=== PATIENT | female | born 1970 | race Caucasian/White ===

== ENCOUNTER 2024-08-10 07:52 | Inpatient (IN) ==
[2024-08-10 08:32] LABS: iSTAT Creatinine 0.8 mg/dl (0.6-1.3); iSTAT Hemoglobin 12.6 g/dl (12.0-16.0); iSTAT Ionized Calcium 1.1 mmol/l (1.12-1.32); iSTAT Potassium 4.2 mmol/L (3.3-5.0)
--- NOTE | 2024-08-10 08:32 | Emergency Department Note ---
Impression & Plan Pneumonia, History of CVA (cerebrovascular accident), Chronic HFrEF (heart failure with reduced ejection fraction), Sepsis, Acute UTI ED Provider Note Provider: Fredis Castrejon MD CHIEF COMPLAINT: High blood sugar, change in mental status HISTORY OF PRESENT ILLNESS: Patient is a 54-year-old female unfortunate complex history including cerebral palsy, bipolar disorder/schizophrenia, history of stroke and seizure, dilated cardiomyopathy and uncontrolled diabetes presenting here via ambulance from [facility] where she resides. According to EMS report the staff stated that this morning checking on her she was more obtunded than normal and would not interact with them. They noted her blood sugars to be high. The reported this occurred sometime overnight. Patient herself is nonverbal and invite significant history to me. She did receive a small 200 cc IV fluid bolus for EMS of normal saline prior to arrival. They report that she has had a bit of a cough and they placed her on some slight supplemental oxygen as she did drop to 88% at 1 point for them. No trauma is reported. PAST MEDICAL HISTORY: As noted above MEDICATIONS: Reviewed medication list from facility SOCIAL HISTORY: Resides at long-term residential facility PHYSICAL EXAM: GENERAL: Occasionally opening her eyes but not interactive or following commands. In no apparent distress. Head: normocephalic and atraumatic EYES: No injection, discharge or icterus. PERRL NECK: Trachea midline. ENT: Mucous membranes pink and moist. LUNGS: Airway patent. No retractions. Breath coarse with significant rhonchi right greater than left base. HEART: Regular rate and rhythm. No chest wall tenderness ABDOMEN: Soft and non-tender, without guarding or rebound. PEG tube in place and mid upper abdomen. SKIN: Acyanotic, warm, dry, without rashes EXTREMITIES: Without swelling, tenderness or deformity of the lower extremities which appear somewhat then and atrophied. NEUROLOGICAL: Withdraws to pain in all 4 extremities. Nonverbal. EK bpm sinus tachycardia with right bundle branch block left anterior fascicular block. No clear acute ST segment elevation with some T wave inversions and LVH findings QTc 488. CONTINUOUS CARDIAC MONITORING: was ordered and showed a heart rate of 100s-120s bpm in sinus tachycardia Patient's laboratory studies and imaging reviewed. Differential includes Infection, dehydration, metabolic abnormality, hypo/hyperglycemia, electrolyte disturbance, anemia, hypoxia, cardiac sources, intracerebral event, toxicologic, neurologic, as well as other pathologies. IMPRESSION/MEDICAL DECISION MAKING: Upon transitioning here initially not hypoxic. Junky cough and poor lung sounds. History of significant cardiomyopathy and fluid overload in the past and gently given a total of approximate 500 cc normal saline between IV fluids here in the prehospital administration. Chest x-ray concerning for right basilar pneumonia. Glucose significantly elevated. Does not appear to be in DKA however. CT head obtained to exclude acute intracranial abnormality or new findings of bleed or stroke. Borderline temperature and white blood cell count concerning for sepsis with her tachycardia. Again being careful to not fluid overload her given her history of heart failure. Covered broadly with cefepime based on prior culture results from the [facility] system access by case management showing Klebsiella in the urine in the past with some Zosyn resistance. Patient seems to be breathing okay not requiring noninvasive positive pressure ventilation or intubation for airway protection at this point. Again question of possible aspiration given her poor swallow status and the x-ray findings. Hurt placed with what appears to be a florid UTI. Negative respiratory viral panel. Procalcitonin not severely elevated but evidence of a mildly elevated troponin of 40 and slightly elevated bilirubin 3.5, AST 41, ALT of 62, and alkaline phosphatase of 888. Not having abdominal pain at least obviously. Leukocytosis 12.8 without anemia is noted. Again covered broadly with cefepime at this time. Insulin drip started given her severe hyperglycemia but does not appear to have a gap and doubt this is DKA. Believe likely sepsis. CT of the head per report shows no acute bleed or mass effect with evidence of an old stroke and age and encouragement right velasquez radiata hypodensity. CT of the abdomen pelvis ordered for further evaluation of the LFT abnormality. Although from review of records appears she has some chronic elevations in the past. Discussed with the hospitalist team as she requires hospitalization for her sepsis. Did eventually get a hold of staff at [facility] at [facility] where she resides and she evidently had a fever last night and was given Tylenol but no medications this morning. As she is febrile here given Tylenol for fever. DIAGNOSIS: Sepsis, UTI, pneumonia, hyperglycemia, altered mental status DISPOSITION: Hospitalist will evaluate Critical Care I have personally spent 33 minutes of critical care time in the direct management of this patient. This includes bedside care, interpretation of diagnostic studies, and testing, discussion with consultants, patient, and other required patient management activities. These 33 minutes is in excess of all separately billable procedures. Past Med/Surg History Problem List (Updated 08/10/24 @ 13:17 by Fredis Castrejon M.D.) Acute UTI (Acute) Chronic HFrEF (heart failure with reduced ejection fraction) (Acute) Acute respiratory failure with hypoxia Hyperosmolar hyperglycemic state (HHS) Pneumonia (Acute) Sepsis (Acute) Seizure disorder Cerebral palsy Bipolar disorder with psychotic features Cardiomyopathy Diabetes mellitus History of CVA (cerebrovascular accident) (Acute) Medical History Neuropathy G6PD deficiency GERD (gastroesophageal reflux disease) Chronic respiratory failure Intellectual developmental disorder, moderate Coulter's syndrome Elevated LFTs Coronary artery calcification Surgical History Status post insertion of percutaneous endoscopic gastrostomy (PEG) tube Family History Other Family history non-contributory Social History Smoking Status: Unknown if ever smoked Feels Safe at Home: Yes Allergies Allergies Allergy/AdvReac Type Severity Reaction Status Date / Time metformin Allergy Unknown Unknown - Unverified 08/10/24 10:47 On med list w/ [facility] Home Meds Home Medications Medication Instructions Recorded Confirmed B-complex with vitamin C 1 tab feeding tube DAILY 08/10/24 08/10/24 Lactobacillus acidophilus 10 mg feeding tube DAILY 08/10/24 08/10/24 acetaminophen 325 mg tablet 650 mg feeding tube Q6H PRN 08/10/24 08/10/24 Elevated Temp>101 acetaminophen 325 mg tablet 650 mg feeding tube Q6H PRN Mild 08/10/24 08/10/24 Pain (Scale Score 1-3) atorvastatin 10 mg tablet 10 mg feeding tube QAM 08/10/24 08/10/24 baclofen 20 mg tablet 20 mg feeding tube Q12H PRN Muscle 08/10/24 08/10/24 Spasms bisacodyl 10 mg rectal suppository 10 mg TX DAILY PRN Consitpation 08/10/24 08/10/24 budesonide 0.5 mg/2 mL suspension 0.5 mg inhalation QAM 08/10/24 08/10/24 for nebulization calcium 500 mg (as 1 tab feeding tube DAILY 08/10/24 08/10/24 carbonate)-vitamin D3 5 mcg (200 unit) tablet (Calcium 500 + D) clonazepam 0.5 mg tablet 0.5 mg feeding tube Q12H PRN 08/10/24 08/10/24 Anxiety diphenhydramine HCl 25 mg tablet 25 mg feeding tube Q6H PRN Itching 08/10/24 08/10/24 duloxetine 20 mg capsule,delayed 20 mg PO DAILY 08/10/24 08/10/24 release enoxaparin 40 mg/0.4 mL 40 mg subcut QAM 08/10/24 08/10/24 subcutaneous syringe folic acid 400 mcg tablet 400 mcg feeding tube QAM 08/10/24 08/10/24 furosemide 40 mg tablet 40 mg feeding tube BID 08/10/24 08/10/24 glucagon HCl 1 mg solution for 1 mg IM DIRECTED PRN 08/10/24 08/10/24 injection (Glucagon (HCl) Hypoglycemia Emergency Kit) glycopyrrolate 1 mg tablet 1 mg feeding tube TID 08/10/24 08/10/24 insulin glargine 100 unit/mL (3 45 unit subcut DAILY 08/10/24 08/10/24 mL) subcutaneous pen (Lantus Solostar U-100 Insulin) insulin lispro 100 unit/mL 0 - 12 sliding scale dose subcut 08/10/24 08/10/24 subcutaneous pen (Humalog KwHermilo ACHS (U-100) Insulin) lamotrigine 100 mg tablet 100 mg feeding tube QPM 08/10/24 08/10/24 lamotrigine 25 mg tablet 50 mg feeding tube QAM 08/10/24 08/10/24 lansoprazole 15 mg delayed 30 mg feeding tube QAM 08/10/24 08/10/24 release,disintegrating tablet loratadine 10 mg tablet 10 mg feeding tube DAILY 08/10/24 08/10/24 magnesium hydroxide 400 mg/5 mL 2,400 mg feeding tube DAILY PRN 08/10/24 08/10/24 oral suspension (Milk of Magnesia) Constipation metoprolol tartrate 25 mg tablet 25 mg feeding tube QID 08/10/24 08/10/24 nystatin 100,000 unit/mL oral 500,000 unit PO Q4H PRN 08/10/24 08/10/24 suspension Thrush/Disturbances of Salivary Secretion ondansetron HCl 4 mg/5 mL oral 4 mg feeding tube Q8H PRN Nausea 08/10/24 08/10/24 solution oxycodone 5 mg tablet 2.5 mg feeding tube Q6H PRN Pain 08/10/24 08/10/24 (Scale Score 4-10) polyethylene glycol 3350 17 gram 17 g feeding tube DAILY PRN 08/10/24 08/10/24 oral powder packet Constipation risperidone 1 mg/mL oral solution 3 mg feeding tube HS 08/10/24 08/10/24 sodium phosphates 19 gram-7 118 ml TX DAILY PRN Constipation 08/10/24 08/10/24 gram/118 mL enema (Fleet Enema) Results & Data (ED) Vital Signs Vital Signs - 24 hr 08/10/24 08:01 08/10/24 08:37 08/10/24 08:47 Temperature 37.7 C H Temperature Source Oral Pulse Rate 123 H 125 H Pulse Rate [Left Radial] 123 H Respiratory Rate 22 16 Respiratory Effort / Characteristics Spontaneous Spontaneous Respiratory Depth Blood Pressure 129/90 Blood Pressure [Left Arm] Blood Pressure Mean 103 Blood Pressure Mean [Left Arm] Blood Pressure Position Semi-fowlers Blood Pressure Position [Left Arm] Pulse Oximetry 93 95 Oxygen Delivery Method Room Air Room Air Oxygen Flow Rate Sepsis Recent Fever Within 48 Hours No Sepsis New/Unexplained Change in Mental Status N/A Sepsis Action Taken by Nursing Physician Notified Oxygen Flow Rate - Titration Pulse Oximetry Post Tiitration 08/10/24 09:00 08/10/24 09:00 08/10/24 09:04 Temperature 38.4 C H Temperature Source Rectal Pulse Rate Pulse Rate [Left Radial] 117 H Respiratory Rate 20 Respiratory Effort / Characteristics Non-Labored Spontaneous Respiratory Depth Normal Blood Pressure Blood Pressure [Left Arm] 141/88 H Blood Pressure Mean Blood Pressure Mean [Left Arm] 105 Blood Pressure Position Blood Pressure Position [Left Arm] Semi-fowlers Pulse Oximetry 96 88 L 88 L Oxygen Delivery Method Nasal Cannula Room Air Room Air Oxygen Flow Rate 2 Sepsis Recent Fever Within 48 Hours Sepsis New/Unexplained Change in Mental Status Sepsis Action Taken by Nursing Oxygen Flow Rate - Titration 2 Pulse Oximetry Post Tiitration 95 08/10/24 09:06 Temperature Temperature Source Pulse Rate 117 H Pulse Rate [Left Radial] Respiratory Rate 20 Respiratory Effort / Characteristics Respiratory Depth Blood Pressure Blood Pressure [Left Arm] Blood Pressure Mean Blood Pressure Mean [Left Arm] Blood Pressure Position Blood Pressure Position [Left Arm] Pulse Oximetry 95 Oxygen Delivery Method Nasal Cannula Oxygen Flow Rate 2 Sepsis Recent Fever Within 48 Hours Sepsis New/Unexplained Change in Mental Status Sepsis Action Taken by Nursing Oxygen Flow Rate - Titration Pulse Oximetry Post Tiitration Laboratory Data 08/10/24 08:20 08/10/24 08:20 Lab Results 08/10/24 08/10/24 08/10/24 Range/Units 07:56 08:20 10:42 WBC 12.87 H (4.8-10.8) K/ul RBC 3.86 L (4.20-5.40) M/uL Hgb 12.1 (12.0-16.0) g/dl POC Hgb 12.6 (12.0-16.0) g/dl Hct 37.3 (37.0-47.0) % POC Hct 37 (37-47) % MCV 96.6 (80.0-100.0) fL MCH 31.3 (25.0-34.0) pg MCHC 32.4 (32.0-36.0) g/dL RDW Std Deviation 53.3 H (36.4-46.3) fL RDW Coeff of Ricci 14.9 H (11.5-14.5) % Plt Count 216 (130-400) K/uL MPV 10.7 (9.4-12.4) fL Immature Gran % (Auto) 0.4 % Neut % (Auto) 87.2 % Lymph % (Auto) 5.6 % [place] % (Auto) 6.4 % Eos % (Auto) 0.1 % Baso % (Auto) 0.3 % Neut # (Auto) 11.22 H (1.40-6.50) K/uL Lymph # (Auto) 0.72 L (1.20-3.40) K/uL [place] # (Auto) 0.83 H (0.11-0.59) K/uL Eos # (Auto) 0.01 (0.00-0.50) K/uL Baso # (Auto) 0.04 (0.00-0.20) K/uL Immature Gran # (Auto) 0.05 (0.01-0.20) K/uL PT 10.4 (9.0-12.0) Seconds INR 1.0 (0.9-1.1) POC Sodium 129 L (135-144) mmol/L Sodium 131 L (136-145) mmol/L POC Potassium 4.2 (3.3-5.0) mmol/L Potassium 4.3 (3.5-5.1) mmol/L POC Chloride 88 L (101-112) mmol/L Chloride 88 L (98-107) mmol/L Carbon Dioxide 36 H (21-32) mmol/L POC Total CO2 35 H (24-31) mmol/L Anion Gap 7 (3-11) POC Anion Gap 12.0 L (16-25) mmol/L POC BUN 38 H (7-18) mg/dl BUN 39 H (6-23) mg/dl Creatinine 0.78 (0.6-1.2) mg/dl POC Creatinine 0.8 (0.6-1.3) mg/dl Est Cr Clr Drug Dosing Not Reportable eGFR 89.64 BUN/Creatinine Ratio 50.0 H (10-20) Glucose 608 H* (70-99(Fasting)) mg/dl POC Glucose 565 H* (70-99) mg/dl POC Glucose (other) 605 H* (70-99) mg/dl Estimat Average Glucose 160 mg/dl Hemoglobin A1c 7.2 H (4.5-5.6) % Lactate 1.3 (0.4-2.0) mmol/L Calcium 8.9 (8.6-10.3) mg/dl POC Ioniz Calcium Brendon 1.10 L (1.12-1.32) mmol/l Magnesium 1.9 (1.7-2.4) mg/dl Total Bilirubin 3.5 H (0.2-1.0) mg/dl AST 41 H (13-39) U/L ALT 62 H (7-52) U/L Alkaline Phosphatase 888 H (34-104) U/L Troponin I High Sens 40.7 H 36.7 H (0-14) pg/ml Total Protein 6.4 (6.0-8.3) gm/dl Albumin 3.1 L (3.4-5.0) gm/dl Globulin 3.3 (2.5-4.0) gm/dl Albumin/Globulin Ratio 0.9 (0.9-2) Procalcitonin 0.19 (0-0.5) ng/ml TSH 0.785 (0.300-4.500) uIu/ml Administered Medications Insulin Human Regular 250 (units/ Sodium Chloride) 250 mls @ 1.2 mls/hr IV .Q24H HOLDEN; Protocol Stop: 09/09/24 09:59 Last Admin: 08/10/24 12:24 Dose: 1.2 units/hr, 1.2 mls/hr Documented By: LAWANDA Co-signed By: KASHIF Insulin Aspart (Insulin Aspart Per Unit Charge) 0 units SC ACHS HOLDEN Stop: 09/09/24 11:29 Last Admin: 08/10/24 12:25 Dose: Not Given Documented By: AM Discontinued Medications Acetaminophen (Acetaminophen 325 Mg Tab) 650 mg PEG NOW STA Stop: 08/10/24 10:23 Last Admin: 08/10/24 11:26 Dose: 650 mg Documented By: GENESIS Adenosine (Adenosine Iv Soln 3 Mg/Ml 2 Ml Vial) Confirm Administered Dose 6 mg IV .STK-MED ONE Stop: 08/10/24 11:43 Last Admin: 08/10/24 13:09 Dose: Not Given Documented By: AM Sodium Chloride (Nss) 250 mls @ 999 mls/hr IV .Q16M ONE Stop: 08/10/24 08:13 Last Infusion: 08/10/24 09:23 Dose: Infused Documented By: Admin: 08/10/24 08:56 Dose: 999 mls/hr Documented By: GENESIS Cefepime HCl (Maxipime 2000mg) 2,000 mg in 20 mls @ 5 mls/min IV NOW STA; Protocol Stop: 08/10/24 08:59 Last Admin: 08/10/24 09:17 Dose: 5 mls/min Documented By: GENESIS Vancomycin HCl 1,000 mg/ (Sodium Chloride) 520 mls @ 200 mls/hr IV NOW ONE Stop: 08/10/24 12:40 Last Admin: 08/10/24 12:24 Dose: 200 mls/hr Documented By: AM Insulin Human Regular (Novolin-R Bolus From Bag) 1 units IV ONE ONE Stop: 08/10/24 10:01 Last Admin: 08/10/24 12:23 Dose: 1 units Documented By: LAWANDA Co-signed By: KASHIF Nava (Moderate Stress Level ) 1 each N/A ONE ONE Stop: 08/10/24 09:52 Last Admin: 08/10/24 12:23 Dose: 1 each Documented By: LAWANDA Nava (Insulin Protocol Goal Range ) 1 each N/A ONE ONE Stop: 08/10/24 09:52 Last Admin: 08/10/24 12:23 Dose: 1 each Documented By: LAWANDA Nava (Stat Iv Infusion Titration Per Protocol) 1 each N/A NOW STA Stop: 08/10/24 09:52 Last Admin: 08/10/24 12:23 Dose: 1 each Documented By: LAWANDA Imaging Data Radiologist's Impression: Chest X-Ray 08/10/24 07:59 XR chest 1V portable CLINICAL HISTORY: ams, cough COMPARISON STUDY: None FINDINGS: Heart size and pulmonary vasculature are normal. There is patchy opacity at the right lung base. No other consolidation or pleural effusion. No pneumothorax. There is an old healed fracture proximal right humerus. IMPRESSION: Pneumonia at the right lung base. Follow-up to resolution recommended. ACT 112: Positive. There are findings on this exam that require communication between the performing entity and the patient following Patient Test Result Information Act ([place] Act 112) guidelines. Electronically signed by: Russ Kaufman M.D. 08/10/2024 8:[address] 08/10/24 07:59 CT SCAN OF THE BRAIN WITHOUT IV CONTRAST CLINICAL HISTORY: Altered mental status. COMPARISON STUDY: None. TECHNIQUE: Unenhanced axial CT scan of the brain was performed from the vertex to the skull base. A dose lowering technique was utilized adhering to the principles of ALARA. CT DOSE: 547.75 mGy.cm FINDINGS: No acute intracranial hemorrhage, midline shift or mass effect is present. Ventricular system is unremarkable. The basal cisterns are patent. There are no extra-axial collections. 2.3 x 0.9 cm focus of encephalomalacia within the left basal ganglia and velasquez radiata suggestive of an old infarct. There is a 0.9 cm hypodense focus within the right velasquez radiata on image 16 of 28. White matter hypodensity suggests small vessel disease. There is mild cerebral atrophy and moderate cerebellar atrophy. IMPRESSION: 1. No acute intracranial hemorrhage or mass effect. 2. 2.3 x 0.9 cm focus of encephalomalacia within the left basal ganglia and velasquez radiata suggestive of an old infarct. 3. 0.9 cm hypodense focus within the right velasquez radiata. This suggests an age indeterminate infarct. ACT 112: Negative or not required by law. Electronically signed by: Jung Willis M.D. 08/10/2024 9:48 AM Discharge Plan Visit Data Chief Complaint: Altered Mental Status Stated Complaint: AMS, HYPERGLYCEMIA ED Provider: Fredis Castrejon Discharge Problem: Pneumonia, History of CVA (cerebrovascular accident), Chronic HFrEF (heart failure with reduced ejection fraction), Sepsis, Acute UTI Patient Disposition: Admitted As Inpatient Discharge Instructions Interventions: ED Discharge Assessment Last Done: 08/10/24 11:25 Discharge Problem: Pneumonia Qualifiers: Pneumonia type: due to unspecified organism Laterality: right Lung location: l ower lobe of lung Qualified Code(s): J18.9 - Pneumonia, unspecified organism
[2024-08-10 08:36] LABS: Basophils # (auto) 0.04 K/uL (0.00-0.20); Basophils % (auto) 0.3 %; Eosinophils # (auto) 0.01 K/uL (0.00-0.50); Eosinophils % (auto) 0.1 %; Hematocrit (blood only) 37.3 % (37.0-47.0); Hemoglobin 12.1 g/dl (12.0-16.0); Immature Granulocytes # (auto) 0.05 K/uL (0.01-0.20); Immature Granulocytes % (auto) 0.4 %; Lymphocytes # (auto) 0.72 K/uL (1.20-3.40); Lymphocytes % (auto) 5.6 %; Mean Corpuscular Hemoglobin 31.3 pg (25.0-34.0); Mean Corpuscular Hgb Conc 32.4 g/dL (32.0-36.0); Mean Corpuscular Volume 96.6 fL (80.0-100.0); Mean Platelet Volume 10.7 fL (9.4-12.4); Monocytes # (auto) 0.83 K/uL (0.11-0.59); Monocytes % (auto) 6.4 %; Neutrophils # (auto) 11.22 K/uL (1.40-6.50); Neutrophils % (auto) 87.2 %; Platelet Count 216 K/uL (130-400); RDW Coefficient of Variation 14.9 % (11.5-14.5); RDW Standard Deviation 53.3 fL (36.4-46.3); Red Blood Count 3.86 M/uL (4.20-5.40); White Blood Count 12.87 K/ul (4.8-10.8)
--- NOTE | 2024-08-10 08:51 | XRay Report ---
XR chest 1V portable CLINICAL HISTORY: ams, cough COMPARISON STUDY: None FINDINGS: Heart size and pulmonary vasculature are normal. There is patchy opacity at the right lung base. No other consolidation or pleural effusion. No pneumothorax. There is an old healed fracture pr oximal right humerus. IMPRESSION: Pneumonia at the right lung base. Follow-up to resolution recommended. ACT 112: Positive. There are findings on this exam that require communication between the performing entity and the patient following Patient Test Result Information Act ([place] Act 112) guidelines. Electronically signed by: Russ Kaufman M.D. 08/10/2024 8:50 AM
[2024-08-10] MEDS: SODIUM CHLORIDE 0.9% 250 ML IV ONE (08:56)
[2024-08-10 09:00] LABS: Alanine Aminotransferase 62 U/L (7-52); Albumin Globulin Ratio 0.9 (0.9-2); Albumin Level 3.1 gm/dl (3.4-5.0); Alkaline Phosphatase 888 U/L (34-104); Anion Gap 7 (3-11); Aspartate Aminotransferase 41 U/L (13-39); Bilirubin,Total 3.5 mg/dl (0.2-1.0); Blood Urea Nitrogen 39 mg/dl (6-23); Calcium 8.9 mg/dl (8.6-10.3); Carbon Dioxide 36 mmol/L (21-32); Chloride 88 mmol/L (98-107); Globulin 3.3 gm/dl (2.5-4.0); Glucose 608 mg/dl (70-99(Fasting)); Magnesium 1.9 mg/dl (1.7-2.4); Potassium 4.3 mmol/L (3.5-5.1); Prothrombin Time 10.4 Seconds (9.0-12.0); Sodium 131 mmol/L (136-145); Total Protein 6.4 gm/dl (6.0-8.3); Troponin I High Sensitivity 40.7 pg/ml (0-14)
[2024-08-10 09:09] LABS: Thyroid Stimulating Hormone 0.785 uIu/ml (0.300-4.500)
[2024-08-10] MEDS: CEFEPIME 2000MG 2,000 MG/20 ML SYR IV STA (09:17)
[2024-08-10 09:33] LABS: Appearance Urine Turbid (Clear); Bacteria Urine Automated 4+ (None Seen); Bilirubin Urine Negative (Negative); Blood Urine 2+ (Negative); Color Urine Dark Yellow; Epithelial Cell Urine Auto 0-2 /hpf (0-2); Glucose Urine UA 2+ (Negative); Ketones Urine Negative (Negative); Leukocyte Esterase Urine 3+ (Negative); Nitrite Urine Negative (Negative); Protein Urine 1+ (Negative); RBC Urine Automated >20 /hpf (0-2); Specific Gravity Urine 1.017 (1.000-1.030); Urobilinogen Urine Negative (Negative); WBC Urine Automated >50 /hpf (0-5); pH Urine 6.5 (4.5-7.5)
[2024-08-10 09:35] LABS: Adenovirus PCR Not Detected (NotDetected); Bordetella parapertussis PCR Not Detected (NotDetected); Bordetella pertussis PCR Not Detected (NotDetected); Chlamydia pneumoniae PCR Not Detected (NotDetected); Coronavirus 229E PCR Not Detected (NotDetected); Coronavirus CoV-2 (COVID19)PCR Not Detected (NotDetected); Coronavirus HKU1 PCR Not Detected (NotDetected); Coronavirus NL63 PCR Not Detected (NotDetected); Coronavirus OC43PCR Not Detected (NotDetected); Human Metapneumovirus PCR Not Detected (NotDetected); Influenza A PCR Not Detected (NotDetected); Influenza B PCR Not Detected (NotDetected); Mycoplasma pneumoniae PCR Not Detected (NotDetected); Parainfluenza Virus 1 PCR Not Detected (NotDetected); Parainfluenza Virus 2 PCR Not Detected (NotDetected); Parainfluenza Virus 3 PCR Not Detected (NotDetected); Parainfluenza Virus 4 PCR Not Detected (NotDetected); Respiratory Syncytial VirusPCR Not Detected (NotDetected); Rhinovirus/Enterovirus PCR Not Detected (NotDetected)
--- NOTE | 2024-08-10 09:50 | CT Scan Report ---
CT SCAN OF THE BRAIN WITHOUT IV CONTRAST CLINICAL HISTORY: Altered mental status. COMPARISON STUDY: None. TECHNIQUE: Unenhanced axial CT scan of the brain was performed from the vertex to the skull base. A dose lowering technique was utilized adhering to the principles of ALARA. CT DOSE: 547.75 mGy.cm FINDINGS: No acute intracranial hemorrhage, midline shift or mass effect is present. Ventricular syst em is unremarkable. The basal cisterns are patent. There are no extra-axial collections. 2.3 x 0.9 cm focus of encephalomalacia within the left basal ganglia and velasquez radiata suggestive of an old infa rct. There is a 0.9 cm hypodense focus within the right velasquez radiata on image 16 of 28. White matte r hypodensity suggests small vessel disease. There is mild cerebral atrophy and moderate cerebellar a trophy. IMPRESSION: 1. No acute intracranial hemorrhage or mass effect. 2. 2.3 x 0.9 cm focus of encephalomalacia within the left basal ganglia and velasquez radiata suggestive of an old infarct. 3. 0.9 cm hypodense focus within the right velasquez radiata. This suggests an age indeterminate infarct . ACT 112: Negative or not required by law. Electronically signed by: Jung Willis M.D. 08/10/2024 9:48 AM
[2024-08-10] MEDS ORDERED: VANCOMYCIN CONSULT ACTIVE PRN (10:05)
--- NOTE | 2024-08-10 10:11 | History & Physical Report ---
Date of Service August 10, 2024 Assessment & Plan (1) Sepsis: (2) Pneumonia: (3) Hyperosmolar hyperglycemic state (HHS): (4) Acute respiratory failure with hypoxia: Plan This patient is a 54-year-old female with a history of cerebral palsy, Coulter syndrome, moderate intellectual delay, mostly nonverbal, CVA, dilated cardiomyopathy/chronic HFrEF, severe coronary artery calcifications, chronically elevated LFTs, DM 2, UTIs with resistance to Zosyn, PEG tube with history of aspiration pneumonia requiring intubation, GERD, G6PD deficiency, neuropathy, C. difficile colitis, chronic respiratory failure with hypoxemia, who recently was admitted to the [facility] for approximately 3 months and discharged on July 23 to [facility]-with prolonged hospital stay was due to issues obtaining legal guardianship and long-term placement in group home. She presents to the ED after being found to be more lethargic than usual and having a very elevated blood glucose level. In the ED, she was nonverbal, febrile, tachycardic, with leukocytosis, elevated LFTs, with RLL pneumonia and UTI found. CT abdomen/pelvis pending at time of admission. She was obtunded on admission but nursing reports that she had been awake but nonverbal on arrival. She is admitted for sepsis secondary to pneumonia, UTI and acute metabolic encephalopathy #Sepsis/RLL PNA/acute respiratory failure with hypoxemia/UTI/acute metabolic encephalopathy-patient with leukocytosis, fever, tachycardia, RLL PNA on CXR, abnormal UA, requiring 2L NC O2. Is quite lethargic currently with fever. BPs normal to mildly hypertensive and lactate negative. Procalcitonin negative. Was given IV cefepime and vancomycin as well a small boluses of IV fluids given history of cardiomyopathy. Needs gram-negative pneumonia coverage given that she resides in a nursing facility and was in hospital for 3 months prior to that. Has a history of Zosyn resistance in the past with a previous UTI. Encephalopathy secondary to sepsis but could also be from HHS. Hurt catheter placed in ED - Admit to PCU - Check ABG to assess for CO2 narcosis - Continue supplemental O2 to keep pulse ox greater than 90%, add BiPAP versus intubation if PaCO2 elevated - Give 2 more liters of LR at 70 mL/h and keep no feeds for PEG tube yet given possible aspiration and being obtunded - Check CT abdomen/pelvis given significantly elevated LFTs which seem to be chronic at least for the last few weeks as per lab review - Continue cefepime and vancomycin - Follow urine cultures, sputum culture, blood culture - Follow CBC, CMP, magnesium in the a.m. - Acetaminophen as needed for fever #Elevated LFTs-review of outpatient labs from 06/2024 reveal chronically elevated total bilirubin/AST/ALT/alkaline phosphatase. Review of outpatient CT A/P in 06/2024 reports normal liver, has gallstones but no bile duct dilatation. Could be side effect of medication? Colonoscopy in 06/2024 was normal after seeing a suspected colon mass on CT A/P previously. - Follow LFTs - Check hepatitis panel - Checking CT abdomen/pelvis given sepsis to rule out cholecystitis/cholangitis as cause of sepsis - Hold atorvastatin #DM2/HHS-with blood glucose 600 on arrival, serum bicarbonate is actually elevated. ABG pending. Legal guardian reports that she has been having elevated blood glucose in the 500s since admission to the group home and a change in her tube feeds. [facility] records show she has been on Lantus 45 units daily. She is allergic to metformin - Hold tube feeds for now - Pharmacy glycemic consult, starting insulin drip, Accu-Cheks per protocol with insulin drip - Check HgbA1c - Give 2 more liters of gentle IV fluids #Elevated troponin/myocardial demand ischemia/chronic HFrEF-troponin mildly elevated at 40 on arrival, ECG without acute ischemic changes. She has note of severe coronary artery calcifications on recent CT abdomen/pelvis. - Trend serial troponin - Check echocardiogram - Continue home metoprolol tartrate through PEG tube-not guideline directed therapy as Toprol-XL cannot be crushed-consider conversion to carvedilol instead which I believe can be crushed - It appears not on Entresto or other guideline directed medical therapy-will obtain cardiology records - Hold home Lasix while giving gentle hydration for sepsis #History of CVA/CP/seizure disorder-no acute issues at this time - Continue supportive care - Is not on antiplatelet therapy-unclear reason why - Holding statin due to elevated LFTs - Continue Lamictal - Continue Robinul presumably for excessive salivation #Bipolar disorder with psychotic features-no acute issues. Risperdal is on home med rec but after review of outpatient records, I believe this was discontinued on discharge from [facility] recently - Will confirm if actually on Risperdal - Continue Lamictal, duloxetine #Chronic respiratory failure with hypoxemia-unclear what her baseline oxygen requirement is. Unclear if from CHF versus asthma/COPD? - Continue home budesonide, holding home Lasix #GERD/PEG tube in place-Given possible aspiration and vomitus on shirt on arrival, will hold tube feeds - Consult dietitian for tube feed orders DVT prophylaxis-Lovenox SQ, SCDs Disposition--admit to PCU, full code as per discussion with legal guardian, Florencia hartman, however they will rely on the patient's sister to make recommendations as to CODE STATUS if prognosis poor. Patient's sister, Caity Osborn, phone number [phone] will be contacted to provide further background, however she is not legally allowed to make any decisions or consent for medical care. History of Present Illness Chief Complaint: Altered mental status Primary Care Provider: [facility] This patient is a 54-year-old female with a history of cerebral palsy, Coulter syndrome, moderate intellectual delay, mostly nonverbal, CVA, dilated cardiomyopathy/chronic HFrEF, severe coronary artery calcifications, chronically elevated LFTs, DM 2, UTIs with resistance to Zosyn, PEG tube with history of aspiration pneumonia requiring intubation, GERD, G6PD deficiency, neuropathy, C. difficile colitis, chronic respiratory failure with hypoxemia, who recently was admitted to the [facility] for approximately 3 months and d ischarged on July 23 to [facility] group home. It seems her prolonged hospital stay was due to issues obtaining legal guardianship and long-term placement in group home. She presents to the ED after being found to be more lethargic than usual and having a very elevated blood glucose level. In the ED, she was nonverbal, febrile, tachycardic, with leukocytosis, elevated LFTs, with RLL pneumonia and UTI found. CT abdomen/pelvis pending at time of admission. When I saw her, she was obtunded but nursing reports that she had been awake but nonverbal on arrival. I discussed her care with her legal guardian, Florencia Hartman, on admission. She has not met the patient in person but from her understanding the patient is mostly nonverbal at baseline but is able to somewhat make her needs known. The patient's sister is very familiar with the patient's care and is allowed to be contacted but she cannot make decisions as legal guardianship rests with Florencia. She will be admitted for sepsis secondary to pneumonia, UTI and acute metabolic encephalopathy Allergies Allergy/AdvReac Type Severity Reaction Status Date / Time metformin Allergy Unknown Unknown - Unverified 08/10/24 10:47 On med list w/ [facility] Home Medications Medication Instructions Recorded Confirmed Type B-complex with vitamin C 1 tab feeding tube DAILY 08/10/24 08/10/24 History Lactobacillus acidophilus 10 mg feeding tube DAILY 08/10/24 08/10/24 History acetaminophen 325 mg tablet 650 mg feeding tube Q6H PRN 08/10/24 08/10/24 History Elevated Temp>101 acetaminophen 325 mg tablet 650 mg feeding tube Q6H PRN Mild 08/10/24 08/10/24 H istory Pain (Scale Score 1-3) atorvastatin 10 mg tablet 10 mg feeding tube QAM 08/10/24 08/10/24 History baclofen 20 mg tablet 20 mg feeding tube Q12H PRN Muscle 08/10/24 08/10/24 History Spasms bisacodyl 10 mg rectal suppository 10 mg FL DAILY PRN Consitpation 08/10/24 08/10/24 History budesonide 0.5 mg/2 mL suspension 0.5 mg inhalation QAM 08/10/24 08/10/24 History for nebulization calcium 500 mg (as 1 tab feeding tube DAILY 08/10/24 08/10/24 History carbonate)-vitamin D3 5 mcg (200 unit) tablet (Calcium 500 + D) clonazepam 0.5 mg tablet 0.5 mg feeding tube Q12H PRN 08/10/24 08/10/24 History Anxiety diphenhydramine HCl 25 mg tablet 25 mg feeding tube Q6H PRN Itching 08/10/24 08/10/24 History duloxetine 20 mg capsule,delayed 20 mg PO DAILY 08/10/24 08/10/24 History release enoxaparin 40 mg/0.4 mL 40 mg subcut QAM 08/10/24 08/10/24 History subcutaneous syringe folic acid 400 mcg tablet 400 mcg feeding tube QAM 08/10/24 08/10/24 History furosemide 40 mg tablet 40 mg feeding tube BID 08/10/24 08/10/24 History glucagon HCl 1 mg solution for 1 mg IM DIRECTED PRN 08/10/24 08/10/24 History injection (Glucagon (HCl) Hypoglycemia Emergency Kit) glycopyrrolate 1 mg tablet 1 mg feeding tube TID 08/10/24 08/10/24 History insulin glargine 100 unit/mL (3 45 unit subcut DAILY 08/10/24 08/10/24 History mL) subcutaneous pen (Lantus Solostar U-100 Insulin) insulin lispro 100 unit/mL 0 - 12 sliding scale dose subcut 08/10/24 08/10/24 History subcutaneous pen (Humalog KwikPen ACHS (U-100) Insulin) lamotrigine 100 mg tablet 100 mg feeding tube QPM 08/10/24 08/10/24 History lamotrigine 25 mg tablet 50 mg feeding tube QAM 08/10/24 08/10/24 History lansoprazole 15 mg delayed 30 mg feeding tube QAM 08/10/24 08/10/24 History release,disintegrating tablet loratadine 10 mg tablet 10 mg feeding tube DAILY 08/10/24 08/10/24 History magnesium hydroxide 400 mg/5 mL 2,400 mg feeding tube DAILY PRN 08/10/24 08/10/24 History oral suspension (Milk of Magnesia) Constipation metoprolol tartrate 25 mg tablet 25 mg feeding tube QID 08/10/24 08/10/24 History nystatin 100,000 unit/mL oral 500,000 unit PO Q4H PRN 08/10/24 08/10/24 History suspension Thrush/Disturbances of Salivary Secretion ondansetron HCl 4 mg/5 mL oral 4 mg feeding tube Q8H PRN Nausea 08/10/24/11/27 History solution oxycodone 5 mg tablet 2.5 mg feeding tube Q6H PRN Pain 08/10/24 08/10/24 History (Scale Score 4-10) polyethylene glycol 3350 17 gram 17 g feeding tube DAILY PRN 08/10/24 08/10/24 History oral powder packet Constipation risperidone 1 mg/mL oral solution 3 mg feeding tube HS 08/10/24 08/10/24 History sodium phosphates 19 gram-7 118 ml FL DAILY PRN Constipation 08/10/24 08/10/24 History gram/118 mL enema (Fleet Enema) Past Med/Surg History Problem List Chronic HFrEF (heart failure with reduced ejection fraction) Acute respiratory failure with hypoxia Hyperosmolar hyperglycemic state (HHS) Pneumonia Sepsis Seizure disorder Cerebral palsy Bipolar disorder with psychotic features Cardiomyopathy Diabetes mellitus History of CVA (cerebrovascular accident) Medical History Neuropathy G6PD deficiency GERD (gastroesophageal reflux disease) Chronic respiratory failure Intellectual developmental disorder, moderate Coulter's syndrome Elevated LFTs Coronary artery calcification Surgical History Status post insertion of percutaneous endoscopic gastrostomy (PEG) tube Family History Other Family history non-contributory Social History Smoking Status: Unknown if ever smoked Feels Safe at Home: Yes Review of Systems Review of Systems: Unobtainable due to cognitive status Physical Exam Constitutional: + ill appearing, + frail appearing and + lethargic; no acute distress No response to brisk sternal rub or loud verbal stimulus Eyes: + anicteric sclerae and PERRL; no conjun ctival abnormality and no scleral abnormality Respiratory: normal respiratory effort; no cough Auscultation: + crackles (Right base) Cardiovascular: RRR, no murmur, no edema Gastrointestinal (Abdomen): Inspection/Auscultation: normal bowel sounds; + abdomen abnormal to inspection (PEG tube in place) and abdomen not distended Percussion/Palpation: + hepatomegaly (With firm liver edge); no hernia and no abdominal mass Musculoskeletal: Extremities: + extremities abnormal to inspection (Atrophy bilateral LEs) With withdrawal of bilateral extremities to pain with pen applied to nailbeds Results & Data Results & Data Vital Signs (Past 12 Hours) Vital Signs Temp Pulse Pulse Resp BP BP Pulse Ox 08/10/24 09:06 117 H 20 95 08/10/24 09:04 88 L 08/10/24 09:00 88 L 08/10/24 09:00 38.4 C H 117 H 20 141/88 H 96 08/10/24 08:47 125 H 08/10/24 08:37 123 H 16 95 08/10/24 08:01 37.7 C H 123 H 22 129/90 93 O2 Del Method O2 Flow Rate 08/10/24 09:06 Nasal Cannula 2 08/10/24 09:04 Room Air 08/10/24 09:00 Room Air 08/10/24 09:00 Nasal Cannula 2 08/10/24 08:47 08/10/24 08:37 Room Air 08/10/24 08:01 Room Air Laboratory Results CBC, BMP, LFTs, troponin, PT/INR, lactate, ionized calcium, magnesium, procalcitonin, TSH, UA, respiratory bio fire panel all reviewed Diagnostic Findings Chest x-ray image personally reviewed by me-right lower lobe pneumonia and old right proximal humerus fracture CT head noncontrast images personally reviewed by me and agree with the following reports: Chest X-Ray 08/10/24 07:59 XR chest 1V portable CLINICAL HISTORY: ams, cough COMPARISON STUDY: None FINDINGS: Heart size and pulmonary vasculature are normal. There is patchy opacity at the right lung base. No other consolidation or pleural effusion. No pneumothorax. There is an old healed fracture proximal right humerus. IMPRESSION: Pneumonia at the right lung base. Follow-up to resolution recommended. ACT 112: Positive. There are findings on this exam that require communication between the performing entity and the patient following Patient Test Result Information Act ([place] Act 112) guidelines. Electronically signed by: Russ Kaufman M.D. 08/10/2024 8:[address] 08/10/24 07:59 CT SCAN OF THE BRAIN WITHOUT IV CONTRAST CLINICAL HISTORY: Altered mental status. COMPARISON STUDY: None. TECHNIQUE: Unenhanced axial CT scan of the brain was performed from the vertex to the skull base. A dose lowering technique was utilized adhering to the principles of ALARA. CT DOSE: 547.75 mGy.cm FINDINGS: No acute intracranial hemorrhage, midline shift or mass effect is present. Ventricular system is unremarkable. The basal cisterns are patent. There are no extra-axial collections. 2.3 x 0.9 cm focus of encephalomalacia within the left basal ganglia and velasquez radiata suggestive of an old infarct. There is a 0.9 cm hypodense focus within the right velasquez radiata on image 16 of 28. White matter hypodensity suggests small vessel disease. There is mild cerebral atrophy and moderate cerebellar atrophy. IMPRESSION: 1. No acute intracranial hemorrhage or mass effect. 2. 2.3 x 0.9 cm focus of encephalomalacia within the left basal ganglia and velasquez radiata suggestive of an old infarct. 3. 0.9 cm hypodense focus within the right velasquez radiata. This suggests an age indeterminate infarct. ACT 112: Negative or not required by law. Electronically signed by: Jung Willis M.D. 08/10/2024 9:48 AM ECG Additional Comments: ECG on 08/10/2024 at 8:28 AM with sinus tachycardia, rate 124, RBBB, LAFB, no acut e ischemic changes Code Status & VTE Plan Code Status Full code VTE Prophylaxis Plan VTE Prophylaxis will be ordered: Yes PG Care Time/CCT Total # of Minutes Spent Total Time Spent with Patient: Total time spent is greater than 50% in coordination of care (as documented) at patient's floor/unit and/or counseling patient: Coding Level of Care Code 75842 INT INP/OBS CARE 3/75MIN Diagnoses Sepsis A41.9 Pneumonia J18.9 Hyperosmolar hyperglycemic state (HHS) E11.00 Acute respiratory failure with hypoxia J96.01
--- NOTE | 2024-08-10 10:53 | Electrocardiogram Report ---
Test Reason : Blood Pressure : */* mmHG Vent. Rate : 124 BPM Atrial Rate : 124 BPM P-R Int : 136 ms QRS Dur : 126 ms QT Int : 340 ms P-R-T Axes : 26 -54 89 degrees QTcB Int : 488 ms Sinus tachycardia Right bundle branch block Left anterior fascicular block Bifascicular block Left ventricular hypertrophy with repolarization abnormality ( R in aVL ) Cannot rule out Septal infarct , age undetermined Abnormal ECG No previous ECGs available Confirmed by Lazaro Brown ([id number]) on 08/10/2024 10:53:05 AM Referred By: Confirmed By: Lazaro Brown
[2024-08-10 11:15] LABS: Estimated Average Glucose 160 mg/dl; Hemoglobin A1C 7.2 % (4.5-5.6)
[2024-08-10] MEDS: ACETAMINOPHEN 325 MG TAB PEG STA (11:26)
[2024-08-10 11:49] LABS: iSTAT Arterial Blood Gas HCO3 34 meg/L (19-24); iSTAT Arterial Blood Gas pCO2 49 mmHg (35-46); iSTAT Arterial Blood Gas pH 7.45 (7.35-7.45); iSTAT Arterial Blood Gas pO2 51 mmHg (80-95); iSTAT Carbon Dioxide 36 mmol/L (24-31); iSTAT Hematocrit 37 % (37-47); iSTAT Hemoglobin 12.6 g/dl (12.0-16.0); iSTAT Potassium 4.1 mmol/L (3.3-5.0); iSTAT Sodium 131 mmol/L (135-144)
[2024-08-10] MEDS ORDERED: PHARMACY GLYCEMIC MGMT CONSULT PRN (12:03)
[2024-08-10] MEDS ORDERED: bisacodyL 10 MG SUPP PR PRN (12:03)
[2024-08-10] MEDS ORDERED: BACLOFEN 20 MG TAB PEG PRN (12:03)
[2024-08-10] MEDS ORDERED: POLYETHYLENE (MIRALAX) 17 GM PACK PEG PRN (12:03)
[2024-08-10] MEDS ORDERED: ACETAMINOPHEN 325 MG TAB PEG PRN (12:03)
[2024-08-10] MEDS ORDERED: clonazePAM 0.5 MG TAB PO PRN (12:03)
[2024-08-10] MEDS ORDERED: ONDANSETRON INJ 2 MG/ML 2 ML VIAL IV PRN (12:03)
[2024-08-10] MEDS: INSULIN PROTOCOL GOAL RANGE ONE (12:23)
[2024-08-10] MEDS: MODERATE STRESS LEVEL ONE (12:23)
[2024-08-10] MEDS: NovoLIN-R BOLUS FROM BAG IV ONE (12:23)
[2024-08-10] MEDS: STAT IV Infusion **Titration per Protocol STA (12:23)
[2024-08-10] MEDS: VANCOMYCIN HCL 1,000 MG in SODIUM CHLORIDE 0.9% 500 ML IV ONE (12:24)
[2024-08-10] MEDS: INSULIN REGULAR 250 UNITS in SODIUM CHLORIDE 0.9% 247.5 ML IV SCH (12:24)
[2024-08-10] MEDS: INSULIN ASPART PER UNIT CHARGE SC SCH (12:25)
[2024-08-10] MEDS: ADENOSINE IV SOLN 3 MG/ML 2 ML VIAL IV ONE (13:09)
[2024-08-10] MEDS: LACTATED RINGER'S 1,000 ML IV SCH (13:20)
[2024-08-10] MEDS: SODIUM CHLORIDE 0.9% 1,000 ML IV SCH (13:22)
[2024-08-10] MEDS: Patient's HEIGHT &/or WEIGHT Needed STA (13:23)
[2024-08-10] MEDS: OPTIRAY 320 100ml IV ONE (14:53)
--- NOTE | 2024-08-10 15:09 | Pharmacy Report ---
Pharmacy PK ABX Note - Date of Service August 10, 2024 - Assessment and Plan Assessment 54 year old F receiving empiric vancomycin and cefepime for treatment of sepsis secondary to pneumonia vs. UTI. Pertinent microbiologic data includes: Positive MRSA Nasal Swab, blood and urine cultures pending. Patient w/ recent 3 month long hospitalization discharged to [facility] on 07/23/24. PMH includes cerebral palsy, Coulter syndrome, moderate intellectual delay, T2DM, HFrEF, PEG tube w/ history of aspiration pneumonia, and history of c.diff colitis. Day # 1 of antimicrobial therapy. Plan Vancomycin * Loading dose: 1000 mg IV x 1 * Maintenance dose: 750 mg IV every 12 hours * Regimen is predicted to achieve target AUC/BELÉN of 400-600 mg/L.hr * Given low body weight, will order a random level prior to steady-state tomorrow (08/11/24) Pharmacy will continue to follow and will adjust dose/frequency as necessary. Thank you. Pharmacy has transitioned to AUC monitoring for vancomycin. AUC/BELÉN is the preferred PK/PD target and is associated with decreased risk of nephrotoxicity compared to traditional trough targets.
--- NOTE | 2024-08-10 15:20 | CT Scan Report ---
CT SCAN OF THE ABDOMEN AND PELVIS WITH IV CONTRAST CLINICAL HISTORY: Sepsis. Elevated liver function tests. COMPARISON STUDY: None. TECHNIQUE: Following the IV administration of 93 cc of Optiray 320, CT scan of the abdomen and pelvi s is performed from the lung bases to the proximal femora. Images are reviewed in the axial, sagittal , and coronal planes. IV contrast was administered without complication. A dose lowering technique wa s utilized adhering to the principles of ALARA. CT DOSE: 829.53 mGy.cm FINDINGS: The heart is mildly enlarged. There is extensive coronary artery calcification. Pericardial calcifications are also present. There are trace bilateral pleural effusions. Moderate right middle lobe and right lower lobe airspace opacities favor pneumonia. Left lung opacities favor atelectasis. There is a moderate amount of pneumoperitoneum. Definitive etiology for this free air is not identifi ed on this exam. A gastrostomy tube is noted. However, this appears to be well-positioned. Heterogene ity of the liver is noted. This favors a hepatic steatosis. Nodularity of the liver surface is sugges tive of cirrhosis. The spleen is mildly enlarged. Subtle hypodense foci within the spleen are present . These are statistically benign. There are small abdominal and pelvic varices. Adrenal glands, kidne ys and pancreas are unremarkable. There are gallstones within the gallbladder. There is no biliary or pancreatic ductal dilatation. There is no evidence for acute cholecystitis. There is no evidence for a bowel obstruction. Rectal wall thickening is noted. There is also mild wall thickening of the asce nding colon. Several mildly enlarged ileocolic lymph nodes measure up to 1 x 1 cm. Hurt balloon with in the bladder is present. Bladder wall thickening is accentuated by underdistention. There are no fl uid collections. There is no significant ascites. Extensive atherosclerotic plaque within the abdomin al aorta is present. IMPRESSION: 1. Moderate pneumoperitoneum of uncertain etiology. No definitive source identified by CT. Gastrostom y tube appears to be well-positioned. If recent manipulation or placement, this could account for the free air. However, an occult perforated hollow viscus cannot be excluded. Findings discussed with Dr Petros Koch at time of dictation. 2. Right lower lobe and right middle lobe airspace opacities suggestive of pneumonia or aspiration pn eumonitis. Trace bilateral pleural effusions. 3. Hepatic steatosis and suspected cirrhosis. Mild splenomegaly and small varices. 4. Mild wall thickening of the ascending colon and rectum. The findings may represent a nonspecific p roctocolitis or be related to portal hypertension. Mildly enlarged ileocolic lymph nodes which should be assessed on short-term follow-up CT to ensure resolution and exclude to the possibility of an und erlying colonic lesion. 5. Bladder wall thickening, accentuated by underdistention. This could be correlated with urinalysis. ACT 112: Negative or not required by law. Electronically signed by: Jung Willis M.D. 08/10/2024 3:18 PM
[2024-08-10] MEDS: ENOXAPARIN INJ 40 MG/0.4 ML SYR SQ SCH (15:26)
[2024-08-10] MEDS: lamoTRIgine 25 MG TAB PO SCH (15:26)
[2024-08-10] MEDS: GLYCOPYRROLATE 1 MG TAB PEG SCH (15:27)
[2024-08-10] MEDS: METOPROLOL TARTRATE 25 MG TAB PEG SCH (15:27)
--- NOTE | 2024-08-10 16:59 | Surgery Consultation ---
Date of Consultation August 10, 2024 Assessment & Plan (1) Pneumoperitoneum: (2) Acute UTI: (3) Pneumonia: (4) Sepsis: Plan 54 yo female with multiple medical comorbidities and recent 3 month hospital stay at [facility] for multiple infections presented to ED due to change in mental status. Found to have pneumonia, hyperglycemia, and UTI. CT scan showing pneumoperitoneum of unknown etiology. Lactate normal. WBC 12k. Abdomen is mildly distended but soft without rigidity, or rebound on examination. Patient obtunded. PEG tube without signs of infection or dislodgement. Plan: Unknown etiology of pneumoperitoneum? Possible manipulation of PEG tube? Given patients benign abdominal examination and multiple other comorbidities and active infections would not recommend surgical intervention at this time. Continue conservative management, IV fluids, IV antibiotics (Would add for anaerobic coverage) , and avoid any tube feeds. Continue medical management will follow along closely Patient seen and examined with Dr. ramos who agrees with above plan. History of Present Illness Reason for Consultation: Pneumoperitoneum Requesting Physician: Riri Koch MD Attending Physician: Riri Koch MD History of Present Illness Patient obtunded, unable to get history of patient. Sister at bedside and give some history. This patient is a 54-year-old female with a history of cerebral palsy, Coulter syndrome, moderate intellectual delay, mostly nonverbal, CVA, dilated cardiomyopathy/chronic HFrEF, severe coronary artery calcifications, chronically elevated LFTs, DM 2, UTIs with resistance to Zosyn, PEG tube with history of as piration pneumonia requiring intubation, GERD, G6PD deficiency, neuropathy, C. difficile colitis, chronic respiratory failure with hypoxemia, who recently was admitted to the [facility] for approximately 3 months and discharged on July 23 to [facility] pen[facility]-with prolonged hospital stay was due to issues obtaining legal guardianship and long-term placement in penitentiary. She presents to the ED after being found to be more lethargic than usual and having a very elevated blood glucose level. In the ED, she was nonverbal, febrile, tachycardic, with leukocytosis, elevated LFTs, with RLL pneumonia and UTI found. CT abdomen/pelvis showing pneumoperitoneum of unknown etiology, peg tube intact without signs of infection or dislodgement. Sister is unsure when the tube was last used. Allergies Allergy/AdvReac Type Severity Reaction Status Date / Time metformin Allergy Unknown Unknown - Unverified 08/10/24 14:57 On med list w/ [facility] Allergy Unknown Unknown Verified 08/10/24 14:57 Home Medications Medication Instructions Recorded Confirmed Type B-complex with vitamin C 1 tab feeding tube DAILY 08/10/24 08/10/24 History Lactobacillus acidophilus 10 mg feeding tube DAILY 08/10/24 08/10/24 History acetaminophen 325 mg tablet 650 mg feeding tube Q6H PRN 08/10/24 08/10/24 History Elevated Temp>101 acetaminophen 325 mg tablet 650 mg feeding tube Q6H PRN Mild 08/10/24 08/10/24 History Pain (Scale Score 1-3) atorvastatin 10 mg tablet 10 mg feeding tube QAM 08/10/24 08/10/24 History baclofen 20 mg tablet 20 mg feeding tube Q12H PRN Muscle 08/10/24 08/10/24 H istory Spasms bisacodyl 10 mg rectal suppository 10 mg NJ DAILY PRN Consitpation 08/10/24 08/10/24 History budesonide 0.5 mg/2 mL suspension 0.5 mg inhalation QAM 08/10/24 08/10/24 History for nebulization calcium 500 mg (as 1 tab feeding tube DAILY 08/10/24 08/10/24 History carbonate)-vitamin D3 5 mcg (200 unit) tablet (Calcium 500 + D) clonazepam 0.5 mg tablet 0.5 mg feeding tube Q12H PRN 08/10/24 08/10/24 History Anxiety diphenhydramine HCl 25 mg tablet 25 mg feeding tube Q6H PRN Itching 08/10/24 08/10/24 History duloxetine 20 mg capsule,delayed 20 mg PO DAILY 08/10/24 08/10/24 History release enoxaparin 40 mg/0.4 mL 40 mg subcut QAM 08/10/24 08/10/24 History subcutaneous syringe folic acid 400 mcg tablet 400 mcg feeding tube QAM 08/10/24 08/10/24 History furosemide 40 mg tablet 40 mg feeding tube BID 08/10/24 08/10/24 History glucagon HCl 1 mg solution for 1 mg IM DIRECTED PRN 08/10/24 08/10/24 History injection (Glucagon (HCl) Hypoglycemia Emergency Kit) glycopyrrolate 1 mg tablet 1 mg feeding tube TID 08/10/24 08/10/24 History insulin glargine 100 unit/mL (3 45 unit subcut DAILY 08/10/24 08/10/24 History mL) subcutaneous pen (Lantus Solostar U-100 Insulin) insulin lispro 100 unit/mL 0 - 12 sliding scale dose subcut 08/10/24 08/10/24 History subcutaneous pen (Humalog KwikPen ACHS (U-100) Insulin) lamotrigine 100 mg tablet 100 mg feeding tube QPM 08/10/24 08/10/24 History lamotrigine 25 mg tablet 50 mg feeding tube QAM 08/10/24 08/10/24 History lansoprazole 15 mg delayed 30 mg feeding tube QAM 08/10/24 08/10/24 History release,disintegrating tablet loratadine 10 mg tablet 10 mg feeding tube DAILY 08/10/24 08/10/24 History magnesium hydroxide 400 mg/5 mL 2,400 mg feeding tube DAILY PRN 08/10/24 08/10/24 History oral suspension (Milk of Magnesia) Constipation metoprolol tartrate 25 mg tablet 25 mg feeding tube QID 08/10/24 08/10/24 History nystatin 100,000 unit/mL oral 500,000 unit PO Q4H PRN 08/10/24 08/10/24 History suspension Thrush/Disturbances of Salivary Secretion ondansetron HCl 4 mg/5 mL oral 4 mg feeding tube Q8H PRN Nausea 08/10/24 08/10/24 History solution oxycodone 5 mg tablet 2.5 mg feeding tube Q6H PRN Pain 08/10/24 08/10/24 History (Scale Score 4-10) polyethylene glycol 3350 17 gram 17 g feeding tube DAILY PRN 08/10/24 08/10/24 History oral powder packet Constipation risperidone 1 mg/mL oral solution 3 mg feeding tube HS 08/10/24 08/10/24 History sodium phosphates 19 gram-7 118 ml NJ DAILY PRN Constipation 08/10/24 08/10/24 History gram/118 mL enema (Fleet Enema) Patient History Medical History Neuropathy G6PD deficiency GERD (gastroesophageal reflux disease) Chronic respiratory failure Intellectual developmental disorder, moderate Coulter's syndrome Elevated LFTs Coronary artery calcification Surgical History Status post insertion of percutaneous endoscopic gastrostomy (PEG) tube Family History Other Family history non-contributory Social History Smoking Status: Unknown if ever smoked Feels Safe at Home: Yes Review of Systems Review of Systems: Unobtainable due to cognitive status Physical Exam Constitutional: + ill appearing and + altered mental sta tus; no acute distress, not in distress and not diaphoretic patient obtunded Respiratory: no respiratory distress, no labored breathing and no retractions Auscultation: + crackles (right lower lung) Cardiovascular: Rate/Rhythm: regular rate and regular rhythm Gastrointestinal (Abdomen): Inspection/Auscultation: abdomen normal to inspection and + abdomen distended (mild) Percussion/Palpation: abdomen soft; abdomen nontender, no guarding and abdomen not rigid PEG tube LUQ without erythema, surrounding induration or flucutance Skin: no rashes, warm and dry Psychiatric: Orientation: + not alert and + not oriented x 3 Results & Data Vital Signs (Past 12 Hours) Vital Signs Temp Pulse Pulse Resp BP BP BP 08/10/24 15:16 36.9 C 89 18 105/69 08/10/24 12:58 36.8 C 117 H 16 144/85 H 08/10/24 12:00 117 H 08/10/24 11:00 112 H 20 145/96 H 08/10/24 09:06 117 H 20 08/10/24 09:04 08/10/24 09:00 08/10/24 09:00 38.4 C H 117 H 20 141/88 H 08/10/24 08:47 125 H 08/10/24 08:37 123 H 16 08/10/24 08:01 37.7 C H 123 H 22 129/90 Pulse Ox O2 Del Method O2 Flow Rate 08/10/24 15:16 100 Nasal Cannula 2 08/10/24 12:58 95 Room Air 08/10/24 12:00 08/10/24 11:00 97 Nasal Cannula 2 08/10/24 09:06 95 Nasal Cannula 2 08/10/24 09:04 88 L Room Air 08/10/24 09:00 88 L Room Air 08/10/24 09:00 96 Nasal Cannula 2 08/10/24 08:47 08/10/24 08:37 95 Room Air 08/10/24 08:01 93 Room Air Laboratory Results 08/10/24 08/10/24 08/10/24 Range/Units Unknown 16:11 15:55 WBC (4.8-10.8) K/ul RBC (4.20-5.40) M/uL Hgb (12.0-16.0) g/dl POC Hgb (12.0-16.0) g/dl Hct (37.0-47.0) % POC Hct (37-47) % MCV (80.0-100.0) fL MCH (25.0-34.0) pg MCHC (32.0-36.0) g/dL RDW Std Deviation (36.4-46.3) fL RDW Coeff of Ricci (11.5-14.5) % Plt Count (130-400) K/uL MPV (9.4-12.4) fL Immature Gran % (Auto) % Neut % (Auto) % Lymph % (Auto) % Maries % (Auto) % Eos % (Auto) % Baso % (Auto) % Neut # (Auto) (1.40-6.50) K/uL Lymph # (Auto) (1.20-3.40) K/uL Maries # (Auto) (0.11-0.59) K/uL Eos # (Auto) (0.00-0.50) K/uL Baso # (Auto) (0.00-0.20) K/uL Immature Gran # (Auto) (0.01-0.20) K/uL PT (9.0-12.0) Seconds INR (0.9-1.1) POC pH (7.35-7.45) POC pCO2 (35-46) mmHg POC pO2 (80-95) mmHg POC HCO3 (19-24) lola/L POC Base Excess (-9-1.8) lola/L POC ABG O2 Sat (90-95) % POC Sodium (135-144) mmol/L Sodium (136-145) mmol/L POC Potassium (3.3-5.0) mmol/L Potassium (3.5-5.1) mmol/L POC Chloride (101-112) mmol/L Chloride (98-107) mmol/L Carbon Dioxide (21-32) mmol/L POC Total CO2 (24-31) mmol/L Anion Gap (3-11) POC Anion Gap (16-25) mmol/L POC BUN (7-18) mg/dl BUN (6-23) mg/dl Creatinine (0.6-1.2) mg/dl POC Creatinine (0.6-1.3) mg/dl Est Cr Clr Drug Dosing eGFR BUN/Creatinine Ratio (10-20) Glucose (70-99(Fasting)) mg/dl POC Glucose 369 H* (70-99) mg/dl POC Glucose (other) (70-99) mg/dl Estimat Average Glucose mg/dl Hemoglobin A1c (4.5-5.6) % Lactate (0.4-2.0) mmol/L Calcium (8.6-10.3) mg/dl POC Ioniz Calcium Brendon (1.12-1.32) mmol/l Magnesium (1.7-2.4) mg/dl Total Bilirubin (0.2-1.0) mg/dl AST (13-39) U/L ALT (7-52) U/L Alkaline Phosphatase (34-104) U/L Troponin I High Sens 33.0 H (0-14) pg/ml Total Protein (6.0-8.3) gm/dl Albumin (3.4-5.0) gm/dl Globulin (2.5-4.0) gm/dl Albumin/Globulin Ratio (0.9-2) Procalcitonin (0-0.5) ng/ml TSH (0.300-4.500) uIu/ml Urine Color Dark Yellow Urine Appearance Turbid A (Clear) Urine pH 6.5 (4.5-7.5) Ur Specific [place] 1.017 (1.000-1.030) Urine Protein 1+ H (Negative) Urine Glucose (UA) 2+ H (Negative) Urine Ketones Negative (Negative) Urine Blood 2+ H (Negative) Urine Nitrite Negative (Negative) Urine Bilirubin Negative (Negative) Urine Urobilinogen Negative (Negative) Ur Leukocyte Esterase 3+ H (Negative) Urine WBC (Auto) >50 H (0-5) /hpf Urine RBC (Auto) >20 H (0-2) /hpf U Hyaline Cast (Auto) 6-10 H (0-2) /lpf U Epithel Cells (Auto) 0-2 (0-2) /hpf Urine Bacteria (Auto) 4+ H (None Seen) Nasal Screen MRSA (PCR) (Negative) Adenovirus (PCR) Not Detected (NotDetected) B. pertussis DNA (PCR) Not Detected (NotDetected) B.parapertussis DNA PCR Not Detected (NotDetected) C. pneumoniae DNA (PCR) Not Detected (NotDetected) Coronavirus OC43 (PCR) Not Detected (NotDetected) Coronavirus HKU1 (PCR) Not Detected (NotDetected) Coronavirus 229E (PCR) Not Detected (NotDetected) SARS-CoV-2 (PCR) Not Detected (NotDetected) Coronavirus NL63 (PCR) Not Detected (NotDetected) Human Metapneumovir PCR Not Detected (NotDetected) Influenza Type A (PCR) Not Detected (NotDetected) Influenza Type B (PCR) Not Detected (NotDetected) M. pneumoniae (PCR) Not Detected (NotDetected) Parainfluenza 1 (PCR) Not Detected (NotDetected) Parainfluenza 2 (PCR) Not Detected (NotDetected) Parainfluenza 3 (PCR) Not Detected (NotDetected) Parainfluenza 4 (PCR) Not Detected (NotDetected) RSV (PCR) Not Detected (NotDetected) Entero/Rhino (PCR) Not Detected (NotDetected) 08/10/24 08/10/24 08/10/24 Range/Units 15:11 14:09 13:12 WBC (4.8-10.8) K/ul RBC (4.20-5.40) M/uL Hgb (12.0-16.0) g/dl POC Hgb (12.0-16.0) g/dl Hct (37.0-47.0) % POC Hct (37-47) % MCV (80.0-100.0) fL MCH (25.0-34.0) pg MCHC (32.0-36.0) g/dL RDW Std Deviation (36.4-46.3) fL RDW Coeff of Ricci (11.5-14.5) % Plt Count (130-400) K/uL MPV (9.4-12.4) fL Immature Gran % (Auto) % Neut % (Auto) % Lymph % (Auto) % Maries % (Auto) % Eos % (Auto) % Baso % (Auto) % Neut # (Auto) (1.40-6.50) K/uL Lymph # (Auto) (1.20-3.40) K/uL Maries # (Auto) (0.11-0.59) K/uL Eos # (Auto) (0.00-0.50) K/uL Baso # (Auto) (0.00-0.20) K/uL Immature Gran # (Auto) (0.01-0.20) K/uL PT (9.0-12.0) Seconds INR (0.9-1.1) POC pH (7.35-7.45) POC pCO2 (35-46) mmHg POC pO2 (80-95) mmHg POC HCO3 (19-24) lola/L POC Base Excess (-9-1.8) lola/L POC ABG O2 Sat (90-95) % POC Sodium (135-144) mmol/L Sodium (136-145) mmol/L POC Potassium (3.3-5.0) mmol/L Potassium (3.5-5.1) mmol/L POC Chloride (101-112) mmol/L Chloride (98-107) mmol/L Carbon Dioxide (21-32) mmol/L POC Total CO2 (24-31) mmol/L Anion Gap (3-11) POC Anion Gap (16-25) mmol/L POC BUN (7-18) mg/dl BUN (6-23) mg/dl Creatinine (0.6-1.2) mg/dl POC Creatinine (0.6-1.3) mg/dl Est Cr Clr Drug Dosing eGFR BUN/Creatinine Ratio (10-20) Glucose (70-99(Fasting)) mg/dl POC Glucose 391 H* 454 H* 470 H* (70-99) mg/dl POC Glucose (other) (70-99) mg/dl Estimat Average Glucose mg/dl Hemoglobin A1c (4.5-5.6) % Lactate (0.4-2.0) mmol/L Calcium (8.6-10.3) mg/dl POC Ioniz Calcium Brendon (1.12-1.32) mmol/l Magnesium (1.7-2.4) mg/dl Total Bilirubin (0.2-1.0) mg/dl AST (13-39) U/L ALT (7-52) U/L Alkaline Phosphatase (34-104) U/L Troponin I High Sens (0-14) pg/ml Total Protein (6.0-8.3) gm/dl Albumin (3.4-5.0) gm/dl Globulin (2.5-4.0) gm/dl Albumin/Globulin Ratio (0.9-2) Procalcitonin (0-0.5) ng/ml TSH (0.300-4.500) uIu/ml Urine Color Urine Appearance (Clear) Urine pH (4.5-7.5) Ur Specific [place] (1.000-1.030) Urine Protein (Negative) Urine Glucose (UA) (Negative) Urine Ketones (Negative) Urine Blood (Negative) Urine Nitrite (Negative) Urine Bilirubin (Negative) Urine Urobilinogen (Negative) Ur Leukocyte Esterase (Negative) Urine WBC (Auto) (0-5) /hpf Urine RBC (Auto) (0-2) /hpf U Hyaline Cast (Auto) (0-2) /lpf U Epithel Cells (Auto) (0-2) /hpf Urine Bacteria (Auto) (None Seen) Nasal Screen MRSA (PCR) (Negative) Adenovirus (PCR) (NotDetected) B. pertussis DNA (PCR) (NotDetected) B.parapertussis DNA PCR (NotDetected) C. pneumoniae DNA (PCR) (NotDetected) Coronavirus OC43 (PCR) (NotDetected) Coronavirus HKU1 (PCR) (NotDetected) Coronavirus 229E (PCR) (NotDetected) SARS-CoV-2 (PCR) (NotDetected) Coronavirus NL63 (PCR) (NotDetected) Human Metapneumovir PCR (NotDetected) Influenza Type A (PCR) (NotDetected) Influenza Type B (PCR) (NotDetected) M. pneumoniae (PCR) (NotDetected) Parainfluenza 1 (PCR) (NotDetected) Parainfluenza 2 (PCR) (NotDetected) Parainfluenza 3 (PCR) (NotDetected) Parainfluenza 4 (PCR) (NotDetected) RSV (PCR) (NotDetected) Entero/Rhino (PCR) (NotDetected) 08/10/24 08/10/24 08/10/24 Range/Units 12:11 11:48 11:33 WBC (4.8-10.8) K/ul RBC (4.20-5.40) M/uL Hgb (12.0-16.0) g/dl POC Hgb 12.6 (12.0-16.0) g/dl Hct (37.0-47.0) % POC Hct 37 (37-47) % MCV (80.0-100.0) fL MCH (25.0-34.0) pg MCHC (32.0-36.0) g/dL RDW Std Deviation (36.4-46.3) fL RDW Coeff of Ricci (11.5-14.5) % Plt Count (130-400) K/uL MPV (9.4-12.4) fL Immature Gran % (Auto) % Neut % (Auto) % Lymph % (Auto) % Maries % (Auto) % Eos % (Auto) % Baso % (Auto) % Neut # (Auto) (1.40-6.50) K/uL Lymph # (Auto) (1.20-3.40) K/uL Maries # (Auto) (0.11-0.59) K/uL Eos # (Auto) (0.00-0.50) K/uL Baso # (Auto) (0.00-0.20) K/uL Immature Gran # (Auto) (0.01-0.20) K/uL PT (9.0-12.0) Seconds INR (0.9-1.1) POC pH 7.45 (7.35-7.45) POC pCO2 49 H (35-46) mmHg POC pO2 51 L (80-95) mmHg POC HCO3 34 H (19-24) lola/L POC Base Excess 10.0 H (-9-1.8) lola/L POC ABG O2 Sat 87.0 L (90-95) % POC Sodium 131 L (135-144) mmol/L Sodium (136-145) mmol/L POC Potassium 4.1 (3.3-5.0) mmol/L Potassium (3.5-5.1) mmol/L POC Chloride (101-112) mmol/L Chloride (98-107) mmol/L Carbon Dioxide (21-32) mmol/L POC Total CO2 36 H (24-31) mmol/L Anion Gap (3-11) POC Anion Gap (16-25) mmol/L POC BUN (7-18) mg/dl BUN (6-23) mg/dl Creatinine (0.6-1.2) mg/dl POC Creatinine (0.6-1.3) mg/dl Est Cr Clr Drug Dosing eGFR BUN/Creatinine Ratio (10-20) Glucose (70-99(Fasting)) mg/dl POC Glucose 497 H* (70-99) mg/dl POC Glucose (other) (70-99) mg/dl Estimat Average Glucose mg/dl Hemoglobin A1c (4.5-5.6) % Lactate (0.4-2.0) mmol/L Calcium (8.6-10.3) mg/dl POC Ioniz Calcium Brendon (1.12-1.32) mmol/l Magnesium (1.7-2.4) mg/dl Total Bilirubin (0.2-1.0) mg/dl AST (13-39) U/L ALT (7-52) U/L Alkaline Phosphatase (34-104) U/L Troponin I High Sens (0-14) pg/ml Total Protein (6.0-8.3) gm/dl Albumin (3.4-5.0) gm/dl Globulin (2.5-4.0) gm/dl Albumin/Globulin Ratio (0.9-2) Procalcitonin (0-0.5) ng/ml TSH (0.300-4.500) uIu/ml Urine Color Urine Appearance (Clear) Urine pH (4.5-7.5) Ur Specific [place] (1.000-1.030) Urine Protein (Negative) Urine Glucose (UA) (Negative) Urine Ketones (Negative) Urine Blood (Negative) Urine Nitrite (Negative) Urine Bilirubin (Negative) Urine Urobilinogen (Negative) Ur Leukocyte Esterase (Negative) Urine WBC (Auto) (0-5) /hpf Urine RBC (Auto) (0-2) /hpf U Hyaline Cast (Auto) (0-2) /lpf U Epithel Cells (Auto) (0-2) /hpf Urine Bacteria (Auto) (None Seen) Nasal Screen MRSA (PCR) Positive A (Negative) Adenovirus (PCR) (NotDetected) B. pertussis DNA (PCR) (NotDetected) B.parapertussis DNA PCR (NotDetected) C. pneumoniae DNA (PCR) (NotDetected) Coronavirus OC43 (PCR) (NotDetected) Coronavirus HKU1 (PCR) (NotDetected) Coronavirus 229E (PCR) (NotDetected) SARS-CoV-2 (PCR) (NotDetected) Coronavirus NL63 (PCR) (NotDetected) Human Metapneumovir PCR (NotDetected) Influenza Type A (PCR) (NotDetected) Influenza Type B (PCR) (NotDetected) M. pneumoniae (PCR) (NotDetected) Parainfluenza 1 (PCR) (NotDetected) Parainfluenza 2 (PCR) (NotDetected) Parainfluenza 3 (PCR) (NotDetected) Parainfluenza 4 (PCR) (NotDetected) RSV (PCR) (NotDetected) Entero/Rhino (PCR) (NotDetected) 08/10/24 08/10/24 08/10/24 Range/Units 10:42 08:20 07:56 WBC 12.87 H (4.8-10.8) K/ul RBC 3.86 L (4.20-5.40) M/uL Hgb 12.1 (12.0-16.0) g/dl POC Hgb 12.6 (12.0-16.0) g/dl Hct 37.3 (37.0-47.0) % POC Hct 37 (37-47) % MCV 96.6 (80.0-100.0) fL MCH 31.3 (25.0-34.0) pg MCHC 32.4 (32.0-36.0) g/dL RDW Std Deviation 53.3 H (36.4-46.3) fL RDW Coeff of Ricci 14.9 H (11.5-14.5) % Plt Count 216 (130-400) K/uL MPV 10.7 (9.4-12.4) fL Immature Gran % (Auto) 0.4 % Neut % (Auto) 87.2 % Lymph % (Auto) 5.6 % Maries % (Auto) 6.4 % Eos % (Auto) 0.1 % Baso % (Auto) 0.3 % Neut # (Auto) 11.22 H (1.40-6.50) K/uL Lymph # (Auto) 0.72 L (1.20-3.40) K/uL Maries # (Auto) 0.83 H (0.11-0.59) K/uL Eos # (Auto) 0.01 (0.00-0.50) K/uL Baso # (Auto) 0.04 (0.00-0.20) K/uL Immature Gran # (Auto) 0.05 (0.01-0.20) K/uL PT 10.4 (9.0-12.0) Seconds INR 1.0 (0.9-1.1) POC pH (7.35-7.45) POC pCO2 (35-46) mmHg POC pO2 (80-95) mmHg POC HCO3 (19-24) lola/L POC Base Excess (-9-1.8) lola/L POC ABG O2 Sat (90-95) % POC Sodium 129 L (135-144) mmol/L Sodium 131 L (136-145) mmol/L POC Potassium 4.2 (3.3-5.0) mmol/L Potassium 4.3 (3.5-5.1) mmol/L POC Chloride 88 L (101-112) mmol/L Chloride 88 L (98-107) mmol/L Carbon Dioxide 36 H (21-32) mmol/L POC Total CO2 35 H (24-31) mmol/L Anion Gap 7 (3-11) POC Anion Gap 12.0 L (16-25) mmol/L POC BUN 38 H (7-18) mg/dl BUN 39 H (6-23) mg/dl Creatinine 0.78 (0.6-1.2) mg/dl POC Creatinine 0.8 (0.6-1.3) mg/dl Est Cr Clr Drug Dosing Not Reportable eGFR 89.64 BUN/Creatinine Ratio 50.0 H (10-20) Glucose 608 H* (70-99(Fasting)) mg/dl POC Glucose 565 H* (70-99) mg/dl POC Glucose (other) 605 H* (70-99) mg/dl Estimat Average Glucose 160 mg/dl Hemoglobin A1c 7.2 H (4.5-5.6) % Lactate 1.3 (0.4-2.0) mmol/L Calcium 8.9 (8.6-10.3) mg/dl POC Ioniz Calcium Brendon 1.10 L (1.12-1.32) mmol/l Magnesium 1.9 (1.7-2.4) mg/dl Total Bilirubin 3.5 H (0.2-1.0) mg/dl AST 41 H (13-39) U/L ALT 62 H (7-52) U/L Alkaline Phosphatase 888 H (34-104) U/L Troponin I High Sens 36.7 H 40.7 H (0-14) pg/ml Total Protein 6.4 (6.0-8.3) gm/dl Albumin 3.1 L (3.4-5.0) gm/dl Globulin 3.3 (2.5-4.0) gm/dl Albumin/Globulin Ratio 0.9 (0.9-2) Procalcitonin 0.19 (0-0.5) ng/ml TSH 0.785 (0.300-4.500) uIu/ml Urine Color Urine Appearance (Clear) Urine pH (4.5-7.5) Ur Specific [place] (1.000-1.030) Urine Protein (Negative) Urine Glucose (UA) (Negative) Urine Ketones (Negative) Urine Blood (Negative) Urine Nitrite (Negative) Urine Bilirubin (Negative) Urine Urobilinogen (Negative) Ur Leukocyte Esterase (Negative) Urine WBC (Auto) (0-5) /hpf Urine RBC (Auto) (0-2) /hpf U Hyaline Cast (Auto) (0-2) /lpf U Epithel Cells (Auto) (0-2) /hpf Urine Bacteria (Auto) (None Seen) Nasal Screen MRSA (PCR) (Negative) Adenovirus (PCR) (NotDetected) B. pertussis DNA (PCR) (NotDetected) B.parapertussis DNA PCR (NotDetected) C. pneumoniae DNA (PCR) (NotDetected) Coronavirus OC43 (PCR) (NotDetected) Coronavirus HKU1 (PCR) (NotDetected) Coronavirus 229E (PCR) (NotDetected) SARS-CoV-2 (PCR) (NotDetected) Coronavirus NL63 (PCR) (NotDetected) Human Metapneumovir PCR (NotDetected) Influenza Type A (PCR) (NotDetected) Influenza Type B (PCR) (NotDetected) M. pneumoniae (PCR) (NotDetected) Parainfluenza 1 (PCR) (NotDetected) Parainfluenza 2 (PCR) (NotDetected) Parainfluenza 3 (PCR) (NotDetected) Parainfluenza 4 (PCR) (NotDetected) RSV (PCR) (NotDetected) Entero/Rhino (PCR) (NotDetected) Diagnostic Findings CT SCAN OF THE ABDOMEN AND PELVIS WITH IV CONTRAST CLINICAL HISTORY: Sepsis. Elevated liver function tests. COMPARISON STUDY: None. TECHNIQUE: Following the IV administration of 93 cc of Optiray 320, CT scan of the abdomen and pelvis is performed from the lung bases to the proximal femora. Images are reviewed in the axial, sagittal, and coronal planes. IV contrast was administered without complication. A dose lowering technique was utilized adhering to the principles of ALARA. CT DOSE: 829.53 mGy.cm FINDINGS: The heart is mildly enlarged. There is extensive coronary artery calcification. Pericardial calcifications are also present. There are trace bilateral pleural effusions. Moderate right middle lobe and right lower lobe airspace opacities favor pneumonia. Left lung opacities favor atelectasis. There is a moderate amount of pneumoperitoneum. Definitive etiology for this free air is not identified on this exam. A gastrostomy tube is noted. However, this appears to be well-positioned. Heterogeneity of the liver is noted. This favors a hepatic steatosis. Nodularity of the liver surface is suggestive of cirrhosis. The spleen is mildly enlarged. Subtle hypodense foci within the spleen are present. These are statistically benign. There are small abdominal and pelvic varices. Adrenal glands, kidneys and pancreas are unremarkable. There are gallstones within the gallbladder. There is no biliary or pancreatic ductal dilatation. There is no evidence for acute cholecystitis. There is no evidence for a bowel obstruction. Rectal wall thickening is noted. There is also mild wall thickening of the ascending colon. Several mildly enlarged ileocolic lymph nodes measure up to 1 x 1 cm. Hurt balloon within the bladder is present. Bladder wall thickening is accentuated by underdistention. There are no fluid collections. There is no significant ascites. Extensive atherosclerotic plaque within the abdominal aorta is present. IMPRESSION: 1. Moderate pneumoperitoneum of uncertain etiology. No definitive source identified by CT. Gastrostomy tube appears to be well-positioned. If recent manipulation or placement, this could account for the free air. However, an occult perforated hollow viscus cannot be excluded. Findings discussed with Dr. Koch at time of dictation. 2. Right lower lobe and right middle lobe airspace opacities suggestive of pneumonia or aspiration pneumonitis. Trace bilateral pleural effusions. 3. Hepatic steatosis and suspected cirrhosis. Mild splenomegaly and small varices. 4. Mild wall thickening of the ascending colon and rectum. The findings may represent a nonspecific proctocolitis or be related to portal hypertension. Mildly enlarged ileocolic lymph nodes which should be assessed on short-term follow-up CT to ensure resolution and exclude to the possibility of an underlying colonic lesion. 5. Bladder wall thickening, accentuated by underdistention. This could be correlated with urinalysis. (3) Pneumonia Laterality: right Lung location: lower lobe of lung Pneumonia type: due to unspecified organism Qualified Code(s): J18.9 - Pneumonia, unspecified organism
[2024-08-10] MEDS: metroNIDAZOLE 500 MG/100 ML BAG IV SCH (18:17)
[2024-08-10] MEDS: CEFEPIME 2000MG 2,000 MG/20 ML SYR IV SCH (18:49)
[2024-08-10 20:26] LABS: Base Excess VBG -5.2 mEq/L; HCO3 VBG 20 mmol/L; Oxygen Saturation VBG 71.8 %; PCO2 VBG 37 mmHg (38-50); PO2 VBG 44 mmHg; pH VBG 7.34 (7.36-7.41)
[2024-08-10 20:42] LABS: BUN Creatinine Ratio 59.3 (10-20); Calcium 8.3 mg/dl (8.6-10.3); Creatinine Clr Calc Pharmacy 73.5 ml/min; Magnesium 1.9 mg/dl (1.7-2.4); Potassium 3.7 mmol/L (3.5-5.1)
[2024-08-10] MEDS: VANCOMYCIN 750 MG in SODIUM CHLORIDE 0.9% 250 ML IV SCH (20:44)
[2024-08-10] MEDS: risperiDONE 1 MG/ML SOLUTION PO SCH (20:47)
[2024-08-10] MEDS: lamoTRIgine 100 MG TAB PO SCH (20:47)
[2024-08-10] MEDS ORDERED: PHARMACIST DISCHARGE MED REC CONSULT PRN (21:45)
[2024-08-10] MEDS: NSS + 20MEQ KCL 20 MEQ/1,000 ML BAG IV SCH (23:31)
--- NOTE | 2024-08-11 02:41 | Communication Note ---
Date of Service: August 11, 2024 Contacted by RN to notify patient has been having secretions that are leading to decrease in oxygen saturation to high 80s. Patient also holding her breath and agitated and pulling off her NC. On arrival patient active/agitated and pulling at equipment, oxygen saturation of 89% at the time. After suction and changing to oxymask (since patient was breathing through her mouth) oxygen saturation increased to 95%. Patient usually uses glycopyrrolate for management of her secretions but this was held due to problems with her PEG tube. Will keep up with suction to clear airway and will add Scopolamine patch to manage secretions until able to resume usual glycopyrrolate, and will also add hypertonic saline neb. Will continue to monitor. Resident Activity Tracking Resident Involvement: Resident Care Provided Care Provided: Adult Hospital Medicine
[2024-08-11] MEDS: SCOPOLAMINE 1 MG/72 HR TDSY PATCH TD SCH (02:42)
[2024-08-11] MEDS: SODIUM CHLOR 7% 4 ML NEB NEB PRN (02:54)
[2024-08-11] MEDS: GLYCOPYRROLATE 0.2 MG/ML VIAL IV ONE (03:11)
[2024-08-11 05:05] LABS: A calco-baum cmplx NotReported Not Detected (NotDetected); Bact fragilis Not Reported Not Detected (NotDetected); Blood Culture Id Panel See PCR Comment (NotDetected); C auris Not Reported Not Detected (NotDetected); Calbicans Not Reported Not Detected (NotDetected); Candida glabrata Not Reported Not Detected (NotDetected); Candida krusei Not Reported Not Detected (NotDetected); Cneoformans/gatti Not Reported Not Detected (NotDetected); Cparapsilosis Not Reported Not Detected (NotDetected); E cloacae compx Not Reported Not Detected (NotDetected); Efaecalis Not Reported Not Detected (NotDetected); Efaecium Not Reported Not Detected (NotDetected); Enterobacterales Not Reported Not Detected (NotDetected); Escherichia coli Not Reported Not Detected (NotDetected); H influenzae Not Reported Not Detected (NotDetected); K aerogenes Not Reported Not Detected (NotDetected); Koxytoca Not Reported Not Detected (NotDetected); Kpneumoniae grp Not Reported Not Detected (NotDetected); Lmonocyt Not Reported Not Detected (NotDetected); N meningitidis Not Reported Not Detected (NotDetected); P aeruginosa Not Reported Not Detected (NotDetected); Proteus spp Not Reported Not Detected (NotDetected); Salmonella spp Not Reported Not Detected (NotDetected); Staph lugdunensis Not Reported Not Detected (NotDetected); Staph spp. Not Reported DETECTED (NotDetected); Staphaureus Not Reported Not Detected (NotDetected); Staphepi Not Reported DETECTED (NotDetected); Staphylococcus spp. DETECTED (NotDetected); Stenmaltophilia Not Reported Not Detected (NotDetected); Strep agal(GrpB) Not Reported Not Detected (NotDetected); Strep pneum Not Reported Not Detected (NotDetected); Strep pyog (GrpA) Not Reported Not Detected (NotDetected); Strep spp Not Reported Not Detected (NotDetected); mecAC Resistant Gene DETECTED (NotDetected)
[2024-08-11 05:17] LABS: Staphylococcus epidermidis DETECTED (NotDetected)
[2024-08-11] MEDS: INSULIN ASPART PER UNIT CHARGE SC SCH (06:49)
--- NOTE | 2024-08-11 07:13 | Electroencephalogram ---
EEG Procedure Note Date of Service August 11, 2024 Start / End Times Start Time: 610 End Time: [address] Koch History 54-year-old with history of strokes and seizure disorder in the past, currently septic with acute encephalopathy, question subclinical seizures. Home Medication List Medication Instructions Recorded Confirmed Type B-complex with vitamin C 1 tab feeding tube DAILY 08/10/24 08/10/24 History Lactobacillus acidophilus 10 mg feeding tube DAILY 08/10/24 08/10/24 History acetaminophen 325 mg tablet 650 mg feeding tube Q6H PRN 08/10/24 08/10/24 History Elevated Temp>101 acetaminophen 325 mg tablet 650 mg feeding tube Q6H PRN Mild 08/10/24 08/10/24 History Pain (Scale Score 1-3) atorvastatin 10 mg tablet 10 mg feeding tube QAM 08/10/24 08/10/24 History baclofen 20 mg tablet 20 mg feeding tube Q12H PRN Muscle 08/10/24 08/10/24 History Spasms bisacodyl 10 mg rectal suppository 10 mg WA DAILY PRN Consitpation 08/10/24 08/10/24 History budesonide 0.5 mg/2 mL suspension 0.5 mg inhalation QAM 08/10/24 08/10/24 History for nebulization calcium 500 mg (as 1 tab feeding tube DAILY 08/10/24 08/10/24 History carbonate)-vitamin D3 5 mcg (200 unit) tablet (Calcium 500 + D) clonazepam 0.5 mg tablet 0.5 mg feeding tube Q12H PRN 08/10/24 08/10/24 History Anxiety diphenhydramine HCl 25 mg tablet 25 mg feeding tube Q6H PRN Itching 08/10/24 08/10/24 History duloxetine 20 mg capsule,delayed 20 mg PO DAILY 08/10/24 08/10/24 History release enoxaparin 40 mg/0.4 mL 40 mg subcut QAM 08/10/24 08/10/24 History subcutaneous syringe folic acid 400 mcg tablet 400 mcg feeding tube QAM 08/10/24 08/10/24 History furosemide 40 mg tablet 40 mg feeding tube BID 08/10/24 08/10/24 History glucagon HCl 1 mg solution for 1 mg IM DIRECTED PRN 08/10/24 08/10/24 History injection (Glucagon (HCl) Hypoglycemia Emergency Kit) glycopyrrolate 1 mg tablet 1 mg feeding tube TID 08/10/24 08/10/24 History insulin glargine 100 unit/mL (3 45 unit subcut DAILY 08/10/24 08/10/24 History mL) subcutaneous pen (Lantus Solostar U-100 Insulin) insulin lispro 100 unit/mL 0 - 12 sliding scale dose subcut 08/10/24 08/10/24 History subcutaneous pen (Humalog KwikPen ACHS (U-100) Insulin) lamotrigine 100 mg tablet 100 mg feeding tube QPM 08/10/24 08/10/24 History lamotrigine 25 mg tablet 50 mg feeding tube QAM 08/10/24 08/10/24 History lansoprazole 15 mg delayed 30 mg feeding tube QAM 08/10/24 08/10/24 History release,disintegrating tablet loratadine 10 mg tablet 10 mg feeding tube DAILY 08/10/24 08/10/24 History magnesium hydroxide 400 mg/5 mL 2,400 mg feeding tube DAILY PRN 08/10/24 08/10/24 History oral suspension (Milk of Magnesia) Constipation metoprolol tartrate 25 mg tablet 25 mg feeding tube QID 08/10/24 08/10/24 History nystatin 100,000 unit/mL oral 500,000 unit PO Q4H PRN 08/10/24 08/10/24 History suspension Thrush/Disturbances of Salivary Secretion ondansetron HCl 4 mg/5 mL oral 4 mg feeding tube Q8H PRN Nausea 08/10/24 08/10/24 History solution oxycodone 5 mg tablet 2.5 mg feeding tube Q6H PRN Pain 08/10/24 08/10/24 History (Scale Score 4-10) polyethylene glycol 3350 17 gram 17 g feeding tube DAILY PRN 08/10/24 08/10/24 History oral powder packet Constipation risperidone 1 mg/mL oral solution 3 mg feeding tube HS 08/10/24 08/10/24 History sodium phosphates 19 gram-7 118 ml WA DAILY PRN Constipation 08/10/24 08/10/24 History gram/118 mL enema (Fleet Enema) Inpatient Medication List Enoxaparin Sodium (Enoxaparin Inj 40 Mg/0.4 Ml Syr) 40 mg SQ Q24H [facility] Stop: 09/09/24 12:29 Last Admin: 08/10/24 15:34 Dose: Not Given Documented By: K Glycopyrrolate (Glycopyrrolate 1 Mg Tab) 1 mg PEG TID [facility] Stop: 09/09/24 13:59 Last Admin: 08/10/24 20:46 Dose: Not Given Documented By: [facility] Admin: 08/10/24 15:27 Dose: Not Given Documented By: K Cefepime HCl (Maxipime 2000mg) 2,000 mg in 20 mls @ 5 mls/min IV Q8H [facility]; Protocol Stop: 08/15/24 16:59 Last Admin: 08/11/24 01:09 Dose: 5 mls/min Documented By: [facility] Admin: 08/10/24 18:49 Dose: 5 mls/min Documented By: AM Vancomycin HCl 750 mg/ Sodium (Chloride) 265 mls @ 200 mls/hr IV Q12H [facility] Stop: 08/15/24 19:59 Last Infusion: 08/10/24 22:04 Dose: Infused Documented By: [facility] Admin: 08/10/24 20:44 Dose: 200 mls/hr Documented By: [facility] Metronidazole (Flagyl) 500 mg in 100 mls @ 100 mls/hr IV Q8H [facility]; Protocol Stop: 08/20/24 17:14 Last Infusion: 08/11/24 03:31 Dose: Infused Documented By: [facility] Admin: 08/11/24 02:31 Dose: 100 mls/hr Documented By: Infusion: 08/10/24 19:26 Dose: Infused Documented By: [facility] Admin: 08/10/24 18:17 Dose: 100 mls/hr Documented By: AM Potassium Chloride/Sodium Chloride (Normal Saline W/20 Meq Kcl) 20 meq in 1,000 mls @ 70 mls/hr IV .[id number] [facility] Stop: 08/11/24 13:32 Last Admin: 08/10/24 23:31 Dose: 70 mls/hr Documented By: [facility] Insulin Aspart (Insulin Aspart Per Unit Charge) 0 units SC Q6 [facility] Stop: 09/10/24 06:44 Last Admin: 08/11/24 06:49 Dose: 1 units Documented By: [facility] Co[place]: [facility]otrigine (Lamotrigine 25 Mg Tab) 50 mg PO QAM [facility]; Protocol Stop: 09/09/24 12:02 Last Admin: 08/10/24 15:26 Dose: Not Given Documented By: K Lamotrigine (Lamotrigine 100 Mg Tab) 100 mg PO QPM [facility]; Protocol Stop: 09/09/24 20:59 Last Admin: 08/10/24 20:47 Dose: Not Given Documented By: [facility] Metoprolol Tartrate (Metoprolol Tartrate 25 Mg Tab) 25 mg PEG QID [facility] Stop: 09/09/24 12:59 Last Admin: 08/10/24 20:47 Dose: Not Given Documented By: [facility] Admin: 08/10/24 18:02 Dose: Not Given Documented By: Admin: 08/10/24 15:27 Dose: Not Given Documented By: K Risperidone (Risperidone 1 Mg/Ml Solution) 3 mg PO HS [facility] Stop: 09/09/24 20:59 Last Admin: 08/10/24 20:47 Dose: Not Given Documented By: [facility] Scopolamine (Scopolamine 1 Mg/72 Hr Tdsy Patch) 1 patch TD Q72H [facility] Stop: 09/10/24 02:59 Last Admin: 08/11/24 02:42 Dose: 1 patch Documented By: [facility] Sodium Chloride (Sodium Chlor 7% 4 Ml Neb) 4 ml NEB BIDR PRN PRN Reason: Secretions Stop: 09/10/24 06:59 Last Admin: 08/11/24 02:54 Dose: 4 ml Documented By: Discontinued Medications Acetaminophen (Acetaminophen 325 Mg Tab) 650 mg PEG NOW STA Stop: 08/10/24 10:23 Last Admin: 08/10/24 11:26 Dose: 650 mg Documented By: [facility] Adenosine (Adenosine Iv Soln 3 Mg/Ml 2 Ml Vial) Confirm Administered Dose 6 mg IV .STK-MED ONE Stop: 08/10/24 11:43 Last Admin: 08/10/24 13:09 Dose: Not Given Documented By: AM Glycopyrrolate (Glycopyrrolate 0.2 Mg/Ml Vial) 0.2 mg IV ONE ONE Stop: 08/11/24 02:30 Last Admin: 08/11/24 03:11 Dose: Not Given Documented By: [facility] Sodium Chloride (Nss) 250 mls @ 999 mls/hr IV .Q16M ONE Stop: 08/10/24 08:13 Last Infusion: 08/10/24 09:23 Dose: Infused Documented By: Admin: 08/10/24 08:56 Dose: 999 mls/hr Documented By: AMS Cefepime HCl (Maxipime 2000mg) 2,000 mg in 20 mls @ 5 mls/min IV NOW STA; Protocol Stop: 08/10/24 08:59 Last Admin: 08/10/24 09:17 Dose: 5 mls/min Documented By: [facility] Insulin Human Regular 250 (units/ Sodium Chloride) 250 mls @ 1.4 mls/hr IV .Q24H [facility]; Protocol Stop: 09/09/24 09:59 Last Titration: 08/11/24 02:45 Dose: Infused Documented By: [facility] Co-signed By: MMG Titration: 08/11/24 02:27 Dose: 1.4 units/hr, 1.4 mls/hr Documented By: [facility] Co-signed By: MMG Titration: 08/11/24 01:30 Dose: 1.8 units/hr, 1.8 mls/hr Documented By: [facility] Co-signed By: MMG Titration: 08/11/24 00:15 Dose: 2.2 units/hr, 2.2 mls/hr Documented By: [facility] Co-signed By: AKP Titration: 08/10/24 23:13 Dose: 2.8 units/hr, 2.8 mls/hr Documented By: [facility] Co-signed By: NAB Titration: 08/10/24 22:16 Dose: 2.8 units/hr, 2.8 mls/hr Documented By: [facility] Co-signed By: AKP Titration: 08/10/24 21:15 Dose: 3.5 units/hr, 3.5 mls/hr Documented By: [facility] Co-signed By: AKP Titration: 08/10/24 20:15 Dose: 3.5 units/hr, 3.5 mls/hr Documented By: [facility] Co-signed By: AKP Titration: 08/10/24 19:17 Dose: 3.5 units/hr, 3.5 mls/hr Documented By: AM Co-signed By: SMC Titration: 08/10/24 18:13 Dose: 3.5 units/hr, 3.5 mls/hr Documented By: AM Co-signed By: LCS Titration: 08/10/24 17:25 Dose: 2.9 units/hr, 2.9 mls/hr Documented By: AM Co-signed By: LORRAINE Titration: 08/10/24 16:13 Dose: 2.4 units/hr, 2.4 mls/hr Documented By: AM Co-signed By: LCS Titration: 08/10/24 15:16 Dose: 2 units/hr, 2 mls/hr Documented By: WMK Co-signed By: LORRAINE Titration: 08/10/24 14:12 Dose: 1.7 units/hr, 1.7 mls/hr Documented By: AM Co-signed By: WMK Titration: 08/10/24 13:18 Dose: 1.4 units/hr, 1.4 mls/hr Documented By: AM Co-signed By: LORRAINE Admin: 08/10/24 12:24 Dose: 1.2 units/hr, 1.2 mls/hr Documented By: AM Co-signed By: DTT Vancomycin HCl 1,000 mg/ (Sodium Chloride) 520 mls @ 200 mls/hr IV NOW ONE Stop: 08/10/24 12:40 Last Infusion: 08/10/24 15:00 Dose: Infused Documented By: Admin: 08/10/24 12:24 Dose: 200 mls/hr Documented By: AM Lactated Ringer's (Lr) 1,000 mls @ 70 mls/hr IV .[id number] [facility] Stop: 08/11/24 16:37 Last Admin: 08/10/24 13:20 Dose: Not Given Documented By: AM Sodium Chloride (Nss) 1,000 mls @ 70 mls/hr IV .[id number] [facility] Stop: 08/11/24 17:34 Last Infusion: 08/10/24 23:13 Dose: Infused Documented By: [facility] Admin: 08/10/24 13:22 Dose: 70 mls/hr Documented By: AM Insulin Aspart (Insulin Aspart Per Unit Charge) 0 units SC ACHS [facility] Stop: 09/09/24 11:29 Last Admin: 08/10/24 20:20 Dose: Not Given Documented By: [facility] Admin: 08/10/24 17:18 Dose: Not Given Documented By: Admin: 08/10/24 12:25 Dose: Not Given Documented By: AM Insulin Human Regular (Novolin-R Bolus From Bag) 1 units IV ONE ONE Stop: 08/10/24 10:01 Last Admin: 08/10/24 12:23 Dose: 1 units Documented By: LAWANDA Co-signed By: KASHIF Ioversol (Optiray 320 100ml) 93 ml IV ONCE ONE Stop: 08/10/24 14:54 Last Admin: 08/10/24 14:53 Dose: 93 ml Documented By: BELTRAN Nava (Moderate Stress Level ) 1 each N/A ONE ONE Stop: 08/10/24 09:52 Last Admin: 08/10/24 12:23 Dose: 1 each Documented By: LAWANDA Nava (Insulin Protocol Goal Range ) 1 each N/A ONE ONE Stop: 08/10/24 09:52 Last Admin: 08/10/24 12:23 Dose: 1 each Documented By: LAWANDA Nava (Stat Iv Infusion Titration Per Protocol) 1 each N/A NOW STA Stop: 08/10/24 09:52 Last Admin: 08/10/24 12:23 Dose: 1 each Documented By: LAWANDA Nava (Patient's Height &/Or Weight Needed) 1 each N/A NOW STA Stop: 08/10/24 13:12 Last Admin: 08/10/24 13:23 Dose: 1 each Documented By: LAWANDA Description This is a 21 electrode EEG with a single channel dedicated to limited EKG. The electrodes were placed in accordance with the International 10-20 system. Interpretation The predominant background activity consists of an irregular 4 to 6 Hz activity, of up to 40 mV in amplitude, seen symmetrically distributed over the posterior head regions bilaterally, spreading anteriorly. Photic stimulation was performed and elicited increase movement changes in the background activity and no abnormal responses were seen. Hyperventilation was not performed. This study was very difficult to interpret due to the excessive, continuous and variable muscle and movement artifact activity. She was screaming and grimacing with open mouth and head rocking. This considerable muscle and movement artifact activity made it difficult to interpret this study in general. In addition, because of her movements, she frequently loosened leads such as O2, C3, and T3. Nevertheless, there were times enough (albeit briefly) without muscle and movement are activity and the background activity was irregular and slow in general. There were no focal abnormalities of slowing and no potentially epileptogenic discharges were seen. In summary, this EEG was difficult to interpret due to excessive muscle and mo vement artifact activity, but showed mild generalized slowing of a nonspecific nature. I could not identify any focal abnormalities or potentially epileptogenic discharges. Clinical Correlation The absence of potentially epileptogenic activity does not exclude a seizure disorder (since interictally EEGs can be normal), but there is no evidence to s uggest subclinical or ongoing seizure activity. The mild generalized slowing is consistent with an encephalopathy, which could be due to a wide variety of causes including septic. [facility] EEG Procedure Codes Indication for Procedure (1) Seizure disorder: (2) Acute encephalopathy: Neurology Neurology: [id number] EEG include record awake & drowsy
[2024-08-11] MEDS: BUDESONIDE 0.5 MG/2 ML VIAL (PULMICORT) INH SCH (07:46)
[2024-08-11 07:49] LABS: Basophils # (auto) 0.02 K/uL (0.00-0.20); Basophils % (auto) 0.2 %; Eosinophils # (auto) 0.03 K/uL (0.00-0.50); Eosinophils % (auto) 0.2 %; Hematocrit (blood only) 37.6 % (37.0-47.0); Hemoglobin 11.9 g/dl (12.0-16.0); Immature Granulocytes % (auto) 0.8 %; Lymphocytes # (auto) 0.57 K/uL (1.20-3.40); Lymphocytes % (auto) 4.6 %; Mean Corpuscular Hemoglobin 31.6 pg (25.0-34.0); Mean Corpuscular Hgb Conc 31.6 g/dL (32.0-36.0); Mean Corpuscular Volume 99.7 fL (80.0-100.0); Mean Platelet Volume 10.9 fL (9.4-12.4); Monocytes # (auto) 0.77 K/uL (0.11-0.59); Monocytes % (auto) 6.2 %; Neutrophils # (auto) 10.87 K/uL (1.40-6.50); Platelet Count 204 K/uL (130-400); RDW Coefficient of Variation 14.8 % (11.5-14.5); RDW Standard Deviation 54.4 fL (36.4-46.3); Red Blood Count 3.77 M/uL (4.20-5.40); White Blood Count 12.36 K/ul (4.8-10.8)
[2024-08-11] MEDS: DULoxetine HCL 20 MG CAP PO SCH (08:41)
[2024-08-11] MEDS: CALCIUM 600MG + VIT D 400 IU TAB PO SCH (08:41)
[2024-08-11] MEDS: FOLIC ACID 400 MCG TAB PO SCH (08:42)
[2024-08-11] MEDS: LORATADINE 10 MG TAB PEG SCH (08:42)
[2024-08-11] MEDS: LACTOBACILLUS ACIDOPHILUS 1 GM PACK PO SCH (08:42)
[2024-08-11] MEDS: PANTOprazole 40 MG/10 ML SYR IV SCH (08:53)
[2024-08-11] MEDS: LANTUS PER UNIT CHARGE SC ONE ×2 (08:53→21:21)
[2024-08-11] MEDS: diphenhydrAMINE 50 MG/ML VIAL IV ONE (08:54)
[2024-08-11] MEDS ORDERED: ROSUVASTATIN CALCIUM 20 MG TAB PO SCH (09:00)
[2024-08-11] MEDS: LORazepam 2 MG/1 ML VIAL IV SCH ×2 (09:02→21:13)
[2024-08-11 09:05] LABS: Bilirubin Direct 1.6 mg/dl (0-0.2); Bilirubin,Total 3.3 mg/dl (0.2-1.0); Calcium 9.4 mg/dl (8.6-10.3); Chol HDL Ratio 2.6 (0-5); Creatinine Clr Calc Pharmacy 65.7 ml/min; Potassium 4.1 mmol/L (3.5-5.1); Total Protein 6.5 gm/dl (6.0-8.3)
[2024-08-11] MEDS: CHECK SCOPOLAMINE PATCH PLACEMENT SCH (09:14)
[2024-08-11] MEDS: GLYCOPYRROLATE 0.2 MG/ML VIAL IV SCH (09:15)
--- NOTE | 2024-08-11 09:22 | Surgery Progress Note ---
Date of Service August 11, 2024 Assessment & Plan (1) Pneumoperitoneum: Plan: abdomen completely asymptomatic fevers treating pneumonias will possibly study g tube later in week KUB in AM Admission and Anticipated Discharge Date Admission Date: August 10, 2024 Subjective more alert thius AM non-comunicative Review of Systems Constitutional: + fever Physical Exam Constitutional: WD/WN, vitals as above Eyes: + anicteric sclerae ENMT: external ear and nose normal, oropharynx normal Neck: trachea midline Respiratory: normal respiratory effort, lungs clear to auscultation Cardiovascular: RRR, no murmur, no edema Gastrointestinal (Abdomen): Inspection/Auscultation: abdomen normal to inspection, + abdomen distended and normal bowel sounds Percussion/Palpation: abdomen soft; abdomen nontender, no guarding and abdomen not rigid Musculoskeletal: Head/Neck/Chest: normocephalic and head atraumatic Skin: no rashes, warm and dry Results & Data Vital Signs (Past 12 Hours) Vital Signs Temp Pulse Pulse Resp BP BP Pulse Ox 08/11/24 07:46 131 H 20 97 08/11/24 07:23 37.6 C H 123 H 16 162/99 H 96 08/11/24 03:40 117 H 25 H 98 08/11/24 02:00 36.6 C 115 H 16 135/74 95 08/10/24 22:40 36.6 C 105 H 18 126/84 98 08/10/24 22:00 110 H O2 Del Method O2 Flow Rate 08/11/24 07:46 Oxymask 3 08/11/24 07:23 Oxymask 3 08/11/24 03:40 Oxymask 4 08/11/24 02:00 Oxymask 08/10/24 22:40 Nasal Cannula 08/10/24 22:00
[2024-08-11 10:03] LABS: Hep B Surface Ag with confirm Negative (Negative)
[2024-08-11 10:08] LABS: Hep C Ab Rflx HepCQuant RNA Negative (Negative)
--- NOTE | 2024-08-11 10:14 | Pharmacy Report ---
Pharmacy Glycemic Short Note 2 - Date of Service August 11, 2024 - Glycemic Short BSG Results (Last 24 hours): 08/10/24 08/10/24 08/10/24 12:11 13:12 14:09 Glucose POC Glucose 497 H* 470 H* 454 H* 08/10/24 08/10/24 08/10/24 15:11 16:11 17:12 Glucose POC Glucose 391 H* 369 H* 335 H* 08/10/24 08/10/24 08/10/24 18:10 19:12 20:11 Glucose POC Glucose 301 H* 262 H 216 H 08/10/24 08/10/24 08/10/24 20:13 21:12 22:12 Glucose 206 H POC Glucose 202 H 160 H 08/10/24 08/11/24 08/11/24 23:11 00:12 01:27 Glucose POC Glucose 144 H 118 H 111 H 08/11/24 08/11/24 08/11/24 02:21 03:19 04:09 Glucose POC Glucose 101 H 126 H 153 H 08/11/24 08/11/24 08/11/24 05:17 06:32 07:16 Glucose 182 H POC Glucose 154 H 170 H OUTPATIENT ANTIDIABETIC REGIMEN: * Lantus 45 units SC daily * Humalog ACHS SSI HbA1c: 7.2% (08/10/24) ASSESSMENT: * DR is a 54 year old female with history of cerebral palsy, Coulter syndrome, intellectual delay, HFrEF, T2DM, presence of PEG tube with history of aspiration pneumonia requiring intubation, and recent prolonged hospitalization at [facility] [address] * Patient presented to ED yesterday from long-term assisted facility due to altered mental status and hyperglycemia * Broad spectrum IV antibiotics started in ED for treatment of sepsis with presumed source being right lower lobe pneumonia * Insulin gtt and gentle IV fluids initiated in ED for treatment of HHS * HHS and hyperglycemia resolved over the course of day yesterday and insulin gtt ultimately transitioned to SC basal/bolus regimen this AM * Patient is NPO, avoiding tube feeds as well at this time PLAN FOR INPATIENT GLYCEMIC CONTROL: * Hold outpatient oral diabetes medications * Basal insulin * Lantus 20 units SC daily * Lantus 0-8-15 units SC HS * Bolus insulin * NovoLog per scale ACHS or Q6hrs while NPO * Goal Range: Low 110 mg/dL - High 140 mg/dL * Correction Factor: 30 mg/dL/unit * Nutritional / Prandial insulin per carb ratio of 1 unit per 10 grams CHO consumed
--- NOTE | 2024-08-11 11:07 | Hospitalist Progress Note ---
Date of Service August 11, 2024 Assessment & Plan (1) Sepsis: (2) Pneumonia: (3) Acute respiratory failure with hypoxia: (4) Pneumoperitoneum: Plan This patient is a 54-year-old female with a history of cerebral palsy, Levin syndrome, moderate intellectual delay, mostly nonverbal, CVA, dilated cardiomyopathy/chronic HFrEF, severe coronary artery calcifications, chronically elevated LFTs, DM 2, UTIs with resistance to Zosyn, PEG tube with history of aspiration pneumonia requiring intubation, GERD, G6PD deficiency, neuropathy, C. difficile colitis, chronic respiratory failure with hypoxemia, who recently was admitted to the [facility] for approximately 3 months and discharged on July 23 to [facility]-with prolonged hospital stay was due to issues obtaining legal guardianship and long-term placement in shelter. She presents to the ED after being found to be more lethargic than usual and having a very elevated blood glucose level. In the ED, she was nonverbal, febrile, tachycardic, with leukocytosis, elevated LFTs, with RLL pneumonia and UTI found. CT abdomen/pelvis then showed moderate pneumoperitoneum without clear perforated viscus or other acute abnormality, G- tube in place.. She was obtunded on admission but now is awake and alert and yelling frequently She is admitted for sepsis secondary to pneumonia, UTI and acute metabolic encephalopathy, pneumoperitoneum #Sepsis/RLL PNA/acute respiratory failure with hypoxemia/UTI/acute metabolic encephalopathy/Staphylococcus epidermidis bacteremia-patient with leukocytosis, fever, tachycardia, RLL PNA on CXR, abnormal UA, requiring 2L NC O2. Is quite lethargic with fever which is now improved. Awake and alert now but moaning and not speaking clearly. BPs normal to mildly hypertensive and lactate negative. Procalcitonin negative. Was given IV cefepime and vancomycin as well a small boluses of IV fluids given history of cardiomyopathy. Needs gram-negative pneumonia coverage given that she resides in a nursing facility and was in [facility] for 3 months prior to that. Has a history of Zosyn resistance in the past with a previous UTI. Encephalopathy secondary to sepsis but could also be from HHS which is now resolved. ABG without evidence of CO2 narcosis. Hurt catheter placed. CT abdomen/pelvis with evidence of cirrhosis but no biliary ductal dilatation or cholecystitis. With excessive salivation and requires frequent suctioning - Continue supplemental O2 to keep pulse ox greater than 90% - Continue IV maintenance fluids while enteral feeds on hold -Neurology recommends discontinuing cefepime due to propensity for enceph alopathy-changed to meropenem and continue vancomycin - Follow urine cultures, sputum culture, and repeat blood cultures in the morning although suspect staph epi is a contaminant - Follow CBC, CMP, magnesium in the a.m. - Acetaminophen as needed for fever - Replace enteral Robinul with IV scheduled 3 times daily, continue suctioning as needed-appreciate speech consult #Pneumoperitoneum-no etiology found on imaging but no evidence clinically of peritonitis on examination. Appreciate surgery consultation. Could be from jostling of PEG tube which is in place - Keep n.p.o. and without enteral feeds - Continue with empiric antibiotics in case of GI infection - Appreciate surgery management - Follow with imaging in the morning #Elevated LFTs-review of outpatient labs from 06/2024 reveal chronically elevated total bilirubin/AST/ALT/alkaline phosphatase. Review of outpatient CT A/P in 06/2024 reports normal liver, has gallstones but no bile duct dilatation. CT A/P here with evidence of cirrhosis but no biliary ductal dilatation. Could be side effect of medication? Colonoscopy in 06/2024 was normal after seeing a suspected colon mass on CT A/P previously. - Follow LFTs-improving - Check hepatitis panel-pending - Hold atorvastatin #DM2/HHS-with blood glucose 600 on arrival, serum bicarbonate is actually elevated. ABG without acidosis. Legal guardian reports that she has been having elevated blood glucose in the 500s since admission to the shelter and a change in her tube feeds. retirement records show she has been on Lantus 45 units daily. She is allergic to metformin. Glucose now improved on insulin drip and now on basal and bolus insulin, remains without enteral feeds due to pneumoperitoneum. HgbA1c well-controlled at 7.2% -Continue to hold tube feeds - Pharmacy glycemic consult, now on Lantus and NovoLog -Continuing maintenance IV fluids #Elevated troponin/myocardial demand ischemia/chronic HFrEF-troponin mildly elevated at 40 on arrival and then trended downward, ECG without acute ischemic changes. She has note of severe coronary artery calcifications on recent CT abdomen/pelvis. Echocardiogram here with EF 35-40%, positive WMA's with inferior, posterior, and inferoseptal elkins being akinetic and all other segments being hypokinetic, no valvular disease -Nothing per PEG tube at this time-convert metoprolol to tartrate to Lopressor 5 Mg IV every 6 hours with hold parameters -not on guideline directed therapy as Toprol-XL cannot be crushed-consider conversion to carvedilol instead which I believe can be crushed -It appears not on Entresto or other guideline directed medical therapy-will obtain cardiology records -continue to hold home Lasix while giving gentle hydration for sepsis #History of CVA/CP/seizure disorder/levin syndrome/intellectual delay-no acute issues at this time, but given encephalopathy and inability to have home Lamictal, will consult neurology-appreciate recommendations - Unable to give clonazepam enterally-convert to lorazepam 1 Mg IV scheduled twice daily - Continue supportive care - Is not on antiplatelet therapy-unclear reason why-plan to add Plavix once no surgical intervention needed - Holding statin due to elevated LFTs -Holding home Lamictal until can resume safely through her PEG tube - Continue Robinul for excessive salivation #Bipolar disorder with psychotic features-currently unable to receive home medications, is moaning and agitated, in restraints - Replace enteral Risperdal with scheduled IM Zyprexa at bedtime - Unable to give home Lamictal, duloxetine currently-giving scheduled Ativan - Appreciate neurology consultation #Chronic respiratory failure with hypoxemia-likely secondary to heart failure and possibly sleep disordered breathing? And has a history of intubation for acute hypoxic and hypercarbic respiratory failure - Continue home budesonide, holding home Lasix - Continue with suctioning, add as needed bronchodilators #GERD/PEG tube in place-with pneumoperitoneum, G-tube in place on CT - Consult dietitian for tube feed orders once able to resume - Giving IV PPI in place of Prevacid per PEG tube at this time DVT prophylaxis-Lovenox SQ, SCDs Disposition--admit to PCU, full code as per discussion with legal guardian, Florencia hartman, however they will rely on the patient's sister to make recommendations as to CODE STATUS if prognosis poor. Patient's sister, Caity Osborn, phone number [phone], however she is not legally allowed to make any decisions or consent for medical care. Admission and Anticipated Discharge Date Admission Date: August 10, 2024 Subjective Pt more awake and alert, moaning, trying to remove O2 from face, in limb restraints overnight and this AM. Tries to push me away with left arm when I get close. Tele with ST 110s-130s Physical Exam Constitutional: + frail appearing Eyes: + anicteric sclerae; no conjunctival abn ormality and no scleral abnormality Respiratory: normal respiratory effort; no cough Auscultation: + crackles (Right base) Gastrointestinal (Abdomen): Inspection/Auscultation: normal bowel sounds; + abdomen abnormal to inspection (PEG tube in place) and abdomen not distended Percussion/Palpation: abdomen soft and + hepatomegaly (With firm liver edge); abdomen nontender, no hernia and no abdominal mass Musculoskeletal: Extremities: + extremities abnormal to inspection (Atrophy bilateral LEs) Psychiatric: Orientation: alert; + not oriented x 3 yelling out Results & Data Results & Data Vital Signs (Past 12 Hours) Vital Signs Temp Pulse Resp BP BP Pulse Ox O2 Del Method 08/11/24 10:12 97 Nasal Cannula 08/11/24 08:00 Oxymask 08/11/24 07:46 131 H 20 97 Oxymask 08/11/24 07:23 37.6 C H 123 H 16 162/99 H 96 Oxymask 08/11/24 03:40 117 H 25 H 98 Oxymask 08/11/24 02:00 36.6 C 115 H 16 135/74 95 Oxymask O2 Flow Rate 08/11/24 10:12 2 08/11/24 08:00 4 08/11/24 07:46 3 08/11/24 07:23 3 08/11/24 03:40 4 08/11/24 02:00 Laboratory Results CBC, CMP, blood cultures, urine culture reviewed PG Care Time/CCT Total # of Minutes Spent Total Time Spent with Patient: Total time spent is greater than 50% in coordination of care (as documented) at patient's floor/unit and/or counseling patient: Coding Level of Care Code 29726 SUB INP/OBS CARE 3/50MIN Diagnoses Sepsis A41.9 Pneumonia J18.9 Laterality: right Lung location: lower lobe of lung Pneumonia type: due to unspecified organism Acute respiratory failure with hypoxia J96.01 Pneumoperitoneum K66.8 (2) Pneumonia Laterality: right Lung location: lower lobe of lung Pneumonia type: due to unspecified organism Qualified Code(s): J18.9 - Pneumonia, unspecified organism
--- NOTE | 2024-08-11 11:39 | Neurology Consultation ---
Date of Consultation August 11, 2024 Assessment & Plan (1) Acute encephalopathy: The encephalopathy is likely multifactorial but it is reassuring that the EEG that she had showed no evidence of sub clinical seizures. Plan -- recommend continuing Lamitcal 50/100 mg AM/PM when access is available -- agree with scheduled ativan in the meantime -- recommend transitioning off of cefepime due to know encephalopathy syndrome Telehealth Consultation Telehealth Information Telehealth Information: I performed this visit using a real-time telehealth connection between my location and the patients location ([facility]). After connecting through interactive tele-video, patient was identified by name and date of and/or wristband check.Patient (or authorized healthcare technical service representative) was informed that this was a telemedicine visit and it was being conducted confidentially over secure lines. My office door was closed and no one else was present in the room with me.Patient (or authorized healthcare technical service representative) provided consent to proceed with the visit, expressed an understanding of privacy and security of the telemedicine visit, and gave permission to have a hospital technical service representative in the room in order to assist with the visit and to conduct portions of the visit, as needed. I informed the patient (or authorized healthcare technical service representative) that I reviewed their record and presented the opportunity for them to ask any questions regarding the visit today. The patient agreed to participate. History of Present Illness Reason for Consultation: [email or web address] Attending Physician: Riri Koch MD History of Present Illness Gaby Cosme is a 54F with a PMH of epilepsy, DM, prior stroke, bipolar disorder, who presents with acute encephalopathy. Patient is unable to provide any history. She initially presented due to elevated BG and encephalopathy and was found to have free air in the abdomen. She follows with [facility] for epilepsy and is taking 50 mg AM/100 mg PM of Lamictal. She did have left sided shaking with no EEG correlate. Allergies Allergy/AdvReac Type Severity Reaction Status Date / Time metformin Allergy Unknown Unknown - Unverified 08/10/24 14:57 On med list w/ [facility] Penicillins Allergy Unknown Unknown Verified 08/10/24 14:57 Home Medications Medication Instructions Recorded Confirmed Type B-complex with vitamin C 1 tab feeding tube DAILY 08/10/24 08/10/24 History Lactobacillus acidophilus 10 mg feeding tube DAILY 08/10/24 08/10/24 History acetaminophen 325 mg tablet 650 mg feeding tube Q6H PRN 08/10/24 08/10/24 His tory Elevated Temp>101 acetaminophen 325 mg tablet 650 mg feeding tube Q6H PRN Mild 08/10/24 08/10/24 History Pain (Scale Score 1-3) atorvastatin 10 mg tablet 10 mg feeding tube QAM 08/10/24 08/10/24 History baclofen 20 mg tablet 20 mg feeding tube Q12H PRN Muscle 08/10/24 08/10/24 History Spasms bisacodyl 10 mg rectal suppository 10 mg MO DAILY PRN Consitpation 08/10/2411/27 History budesonide 0.5 mg/2 mL suspension 0.5 mg inhalation QAM 08/10/24 08/10/24 History for nebulization calcium 500 mg (as 1 tab feeding tube DAILY 08/10/24 08/10/24 History carbonate)-vitamin D3 5 mcg (200 unit) tablet (Calcium 500 + D) clonazepam 0.5 mg tablet 0.5 mg feeding tube Q12H PRN 08/10/24 08/10/24 History Anxiety diphenhydramine HCl 25 mg tablet 25 mg feeding tube Q6H PRN Itching 08/10/24 08/10/24 History duloxetine 20 mg capsule,delayed 20 mg PO DAILY 08/10/24 08/10/24 History release enoxaparin 40 mg/0.4 mL 40 mg subcut QAM 08/10/24 08/10/24 History subcutaneous syringe folic acid 400 mcg tablet 400 mcg feeding tube QAM 08/10/24 08/10/24 History furosemide 40 mg tablet 40 mg feeding tube BID 08/10/24 08/10/24 History glucagon HCl 1 mg solution for 1 mg IM DIRECTED PRN 08/10/24 08/10/24 History injection (Glucagon (HCl) Hypoglycemia Emergency Kit) glycopyrrolate 1 mg tablet 1 mg feeding tube TID 08/10/24 08/10/24 History insulin glargine 100 unit/mL (3 45 unit subcut DAILY 08/10/24 08/10/24 History mL) subcutaneous pen (Lantus Solostar U-100 Insulin) insulin lispro 100 unit/mL 0 - 12 sliding scale dose subcut 08/10/24 08/10/24 History subcutaneous pen (Humalog KwikPen ACHS (U-100) Insulin) lamotrigine 100 mg tablet 100 mg feeding tube QPM 08/10/24 08/10/24 History lamotrigine 25 mg tablet 50 mg feeding tube QAM 08/10/24 08/10/24 History lansoprazole 15 mg delayed 30 mg feeding tube QAM 08/10/24 08/10/24 History release,disintegrating tablet loratadine 10 mg tablet 10 mg feeding tube DAILY 08/10/24 08/10/24 History magnesium hydroxide 400 mg/5 mL 2,400 mg feeding tube DAILY PRN 08/10/24 08/10/24 History oral suspension (Milk of Magnesia) Constipation metoprolol tartrate 25 mg tablet 25 mg feeding tube QID 08/10/24 08/10/24 History nystatin 100,000 unit/mL oral 500,000 unit PO Q4H PRN 08/10/24 08/10/24 History suspension Thrush/Disturbances of Salivary Secretion ondansetron HCl 4 mg/5 mL oral 4 mg feeding tube Q8H PRN Nausea 08/10/24 08/10/24 History solution oxycodone 5 mg tablet 2.5 mg feeding tube Q6H PRN Pain 08/10/24 08/10/24 History (Scale Score 4-10) polyethylene glycol 3350 17 gram 17 g feeding tube DAILY PRN 08/10/24 08/10/24 History oral powder packet Constipation risperidone 1 mg/mL oral solution 3 mg feeding tube HS 08/10/24 08/10/24 History sodium phosphates 19 gram-7 118 ml MO DAILY PRN Constipation 08/10/24 08/10/24 History gram/118 mL enema (Fleet Enema) Patient History Medical History Neuropathy G6PD deficiency GERD (gastroesophageal reflux disease) Chronic respiratory failure Intellectual developmental disorder, moderate Coulter's syndrome Elevated LFTs Coronary artery calcification Surgical History Status post insertion of percutaneous endoscopic gastrostomy (PEG) tube Family History Other Family history non-contributory Social History Smoking Status: Never smoker Current Living Situation: Legal Guardian and Half-Way Current Living Situation Comment: pt resides at [facility] and has a legal guardian Feels Safe at Home: Yes Assistive Devices: Glasses and Oxygen - Continuous Review of Systems unable to obtain secondary to baseline Physical Exam Lethargic, sleeping, follows no commands and no speech output. Spontaneous left sided movement Results & Data Vital Signs (Past 12 Hours) Vital Signs Temp Pulse Resp BP BP Pulse Ox O2 Del Method 08/11/24 10:12 97 Nasal Cannula 08/11/24 08:00 Oxymask 08/11/24 07:46 131 H 20 97 Oxymask 08/11/24 07:23 37.6 C H 123 H 16 162/99 H 96 Oxymask 08/11/24 03:40 117 H 25 H 98 Oxymask 08/11/24 02:00 36.6 C 115 H 16 135/74 95 Oxymask O2 Flow Rate 08/11/24 10:12 2 08/11/24 08:00 4 08/11/24 07:46 3 08/11/24 07:23 3 08/11/24 03:40 4 08/11/24 02:00 Laboratory Results Abnormal Lab Results 08/10/24 08/10/24 08/10/24 08:20 11:48 12:11 WBC RBC Hgb Hct MCV MCH MCHC RDW Std Deviation RDW Coeff of Ricci Plt Count MPV Immature Gran % (Auto) Neut % (Auto) Lymph % (Auto) [place] % (Auto) Eos % (Auto) Baso % (Auto) Neut # (Auto) Lymph # (Auto) [place] # (Auto) Eos # (Auto) Baso # (Auto) Immature Gran # (Auto) VBG pH VBG pCO2 VBG pO2 VBG HCO3 VBG O2 Saturation VBG Base Excess Sodium Potassium Chloride Carbon Dioxide Anion Gap BUN Creatinine Est Cr Clr Drug Dosing eGFR BUN/Creatinine Ratio Glucose POC Glucose 497 H* Lactate Calcium Phosphorus Magnesium Total Bilirubin Direct Bilirubin AST ALT Alkaline Phosphatase Ammonia Troponin I High Sens Total Protein Albumin Triglycerides Cholesterol LDL Cholesterol, Calc VLDL Cholesterol, Calc HDL Cholesterol Cholesterol/HDL Ratio Nasal Screen MRSA (PCR) Positive A Hep Bs Antigen Hepatitis C Antibody Staphylococcus sp PCR DETECTED A mecA/C-Methicil Resis Gene DETECTED A Staph epidermidis (PCR) DETECTED A Bld Cult ID Panel PCR See PCR Comment 08/10/24 08/10/24 08/10/24 13:12 14:09 15:11 WBC RBC Hgb Hct MCV MCH MCHC RDW Std Deviation RDW Coeff of Ricci Plt Count MPV Immature Gran % (Auto) Neut % (Auto) Lymph % (Auto) [place] % (Auto) Eos % (Auto) Baso % (Auto) Neut # (Auto) Lymph # (Auto) [place] # (Auto) Eos # (Auto) Baso # (Auto) Immature Gran # (Auto) VBG pH VBG pCO2 VBG pO2 VBG HCO3 VBG O2 Saturation VBG Base Excess Sodium Potassium Chloride Carbon Dioxide Anion Gap BUN Creatinine Est Cr Clr Drug Dosing eGFR BUN/Creatinine Ratio Glucose POC Glucose 470 H* 454 H* 391 H* Lactate Calcium Phosphorus Magnesium Total Bilirubin Direct Bilirubin AST ALT Alkaline Phosphatase Ammonia Troponin I High Sens Total Protein Albumin Triglycerides Cholesterol LDL Cholesterol, Calc VLDL Cholesterol, Calc HDL Cholesterol Cholesterol/HDL Ratio Nasal Screen MRSA (PCR) Hep Bs Antigen Hepatitis C Antibody Staphylococcus sp PCR mecA/C-Methicil Resis Gene Staph epidermidis (PCR) Bld Cult ID Panel PCR 08/10/24 08/10/24 08/10/24 15:55 16:11 17:12 WBC RBC Hgb Hct MCV MCH MCHC RDW Std Deviation RDW Coeff of Ricci Plt Count MPV Immature Gran % (Auto) Neut % (Auto) Lymph % (Auto) [place] % (Auto) Eos % (Auto) Baso % (Auto) Neut # (Auto) Lymph # (Auto) [place] # (Auto) Eos # (Auto) Baso # (Auto) Immature Gran # (Auto) VBG pH VBG pCO2 VBG pO2 VBG HCO3 VBG O2 Saturation VBG Base Excess Sodium Potassium Chloride Carbon Dioxide Anion Gap BUN Creatinine Est Cr Clr Drug Dosing eGFR BUN/Creatinine Ratio Glucose POC Glucose 369 H* 335 H* Lactate Calcium Phosphorus Magnesium Total Bilirubin Direct Bilirubin AST ALT Alkaline Phosphatase Ammonia Troponin I High Sens 33.0 H Total Protein Albumin Triglycerides Cholesterol LDL Cholesterol, Calc VLDL Cholesterol, Calc HDL Cholesterol Cholesterol/HDL Ratio Nasal Screen MRSA (PCR) Hep Bs Antigen Hepatitis C Antibody Staphylococcus sp PCR mecA/C-Methicil Resis Gene Staph epidermidis (PCR) Bld Cult ID Panel PCR 08/10/24 08/10/24 08/10/24 18:10 19:12 20:11 WBC RBC Hgb Hct MCV MCH MCHC RDW Std Deviation RDW Coeff of Ricci Plt Count MPV Immature Gran % (Auto) Neut % (Auto) Lymph % (Auto) [place] % (Auto) Eos % (Auto) Baso % (Auto) Neut # (Auto) Lymph # (Auto) [place] # (Auto) Eos # (Auto) Baso # (Auto) Immature Gran # (Auto) VBG pH VBG pCO2 VBG pO2 VBG HCO3 VBG O2 Saturation VBG Base Excess Sodium Potassium Chloride Carbon Dioxide Anion Gap BUN Creatinine Est Cr Clr Drug Dosing eGFR BUN/Creatinine Ratio Glucose POC Glucose 301 H* 262 H 216 H Lactate Calcium Phosphorus Magnesium Total Bilirubin Direct Bilirubin AST ALT Alkaline Phosphatase Ammonia Troponin I High Sens Total Protein Albumin Triglycerides Cholesterol LDL Cholesterol, Calc VLDL Cholesterol, Calc HDL Cholesterol Cholesterol/HDL Ratio Nasal Screen MRSA (PCR) Hep Bs Antigen Hepatitis C Antibody Staphylococcus sp PCR mecA/C-Methicil Resis Gene Staph epidermidis (PCR) Bld Cult ID Panel PCR 08/10/24 08/10/24 08/10/24 20:13 21:12 22:12 WBC RBC Hgb Hct MCV MCH MCHC RDW Std Deviation RDW Coeff of Ricci Plt Count MPV Immature Gran % (Auto) Neut % (Auto) Lymph % (Auto) [place] % (Auto) Eos % (Auto) Baso % (Auto) Neut # (Auto) Lymph # (Auto) [place] # (Auto) Eos # (Auto) Baso # (Auto) Immature Gran # (Auto) VBG pH 7.34 L VBG pCO2 37 L VBG pO2 44 VBG HCO3 20 VBG O2 Saturation 71.8 VBG Base Excess -5.2 Sodium 137 Potassium 3.7 Chloride 101 Carbon Dioxide 31 Anion Gap 5 BUN 35 H Creatinine 0.59 L Est Cr Clr Drug Dosing 73.5 eGFR 106.37 BUN/Creatinine Ratio 59.3 H Glucose 206 H POC Glucose 202 H 160 H Lactate 1.5 Calcium 8.3 L Phosphorus 3.0 Magnesium 1.9 Total Bilirubin Direct Bilirubin AST ALT Alkaline Phosphatase Ammonia 34.0 Troponin I High Sens Total Protein Albumin Triglycerides Cholesterol LDL Cholesterol, Calc VLDL Cholesterol, Calc HDL Cholesterol Cholesterol/HDL Ratio Nasal Screen MRSA (PCR) Hep Bs Antigen Hepatitis C Antibody Staphylococcus sp PCR mecA/C-Methicil Resis Gene Staph epidermidis (PCR) Bld Cult ID Panel PCR 08/10/24 08/10/24 08/11/24 22:33 23:11 00:12 WBC RBC Hgb Hct MCV MCH MCHC RDW Std Deviation RDW Coeff of Ricci Plt Count MPV Immature Gran % (Auto) Neut % (Auto) Lymph % (Auto) [place] % (Auto) Eos % (Auto) Baso % (Auto) Neut # (Auto) Lymph # (Auto) [place] # (Auto) Eos # (Auto) Baso # (Auto) Immature Gran # (Auto) VBG pH VBG pCO2 VBG pO2 VBG HCO3 VBG O2 Saturation VBG Base Excess Sodium Potassium Chloride Carbon Dioxide Anion Gap BUN Creatinine Est Cr Clr Drug Dosing eGFR BUN/Creatinine Ratio Glucose POC Glucose 144 H 118 H Lactate Calcium Phosphorus Magnesium Total Bilirubin Direct Bilirubin AST ALT Alkaline Phosphatase Ammonia Troponin I High Sens 28.2 H Total Protein Albumin Triglycerides Cholesterol LDL Cholesterol, Calc VLDL Cholesterol, Calc HDL Cholesterol Cholesterol/HDL Ratio Nasal Screen MRSA (PCR) Hep Bs Antigen Hepatitis C Antibody Staphylococcus sp PCR mecA/C-Methicil Resis Gene Staph epidermidis (PCR) Bld Cult ID Panel PCR 08/11/24 08/11/24 08/11/24 01:27 02:21 03:19 WBC RBC Hgb Hct MCV MCH MCHC RDW Std Deviation RDW Coeff of Ricci Plt Count MPV Immature Gran % (Auto) Neut % (Auto) Lymph % (Auto) [place] % (Auto) Eos % (Auto) Baso % (Auto) Neut # (Auto) Lymph # (Auto) [place] # (Auto) Eos # (Auto) Baso # (Auto) Immature Gran # (Auto) VBG pH VBG pCO2 VBG pO2 VBG HCO3 VBG O2 Saturation VBG Base Excess Sodium Potassium Chloride Carbon Dioxide Anion Gap BUN Creatinine Est Cr Clr Drug Dosing eGFR BUN/Creatinine Ratio Glucose POC Glucose 111 H 101 H 126 H Lactate Calcium Phosphorus Magnesium Total Bilirubin Direct Bilirubin AST ALT Alkaline Phosphatase Ammonia Troponin I High Sens Total Protein Albumin Triglycerides Cholesterol LDL Cholesterol, Calc VLDL Cholesterol, Calc HDL Cholesterol Cholesterol/HDL Ratio Nasal Screen MRSA (PCR) Hep Bs Antigen Hepatitis C Antibody Staphylococcus sp PCR mecA/C-Methicil Resis Gene Staph epidermidis (PCR) Bld Cult ID Panel PCR 08/11/24 08/11/24 08/11/24 04:09 05:17 06:32 WBC RBC Hgb Hct MCV MCH MCHC RDW Std Deviation RDW Coeff of Ricci Plt Count MPV Immature Gran % (Auto) Neut % (Auto) Lymph % (Auto) [place] % (Auto) Eos % (Auto) Baso % (Auto) Neut # (Auto) Lymph # (Auto) [place] # (Auto) Eos # (Auto) Baso # (Auto) Immature Gran # (Auto) VBG pH VBG pCO2 VBG pO2 VBG HCO3 VBG O2 Saturation VBG Base Excess Sodium Potassium Chloride Carbon Dioxide Anion Gap BUN Creatinine Est Cr Clr Drug Dosing eGFR BUN/Creatinine Ratio Glucose POC Glucose 153 H 154 H 170 H Lactate Calcium Phosphorus Magnesium Total Bilirubin Direct Bilirubin AST ALT Alkaline Phosphatase Ammonia Troponin I High Sens Total Protein Albumin Triglycerides Cholesterol LDL Cholesterol, Calc VLDL Cholesterol, Calc HDL Cholesterol Cholesterol/HDL Ratio Nasal Screen MRSA (PCR) Hep Bs Antigen Hepatitis C Antibody Staphylococcus sp PCR mecA/C-Methicil Resis Gene Staph epidermidis (PCR) Bld Cult ID Panel PCR 08/11/24 07:16 WBC 12.36 H RBC 3.77 L Hgb 11.9 L Hct 37.6 MCV 99.7 MCH 31.6 MCHC 31.6 L RDW Std Deviation 54.4 H RDW Coeff of Ricci 14.8 H Plt Count 204 MPV 10.9 Immature Gran % (Auto) 0.8 Neut % (Auto) 88.0 Lymph % (Auto) 4.6 [place] % (Auto) 6.2 Eos % (Auto) 0.2 Baso % (Auto) 0.2 Neut # (Auto) 10.87 H Lymph # (Auto) 0.57 L [place] # (Auto) 0.77 H Eos # (Auto) 0.03 Baso # (Auto) 0.02 Immature Gran # (Auto) 0.10 VBG pH VBG pCO2 VBG pO2 VBG HCO3 VBG O2 Saturation VBG Base Excess Sodium 141 Potassium 4.1 Chloride 101 Carbon Dioxide 32 Anion Gap 8 BUN 35 H Creatinine 0.66 Est Cr Clr Drug Dosing 65.7 eGFR 103.53 BUN/Creatinine Ratio 53.0 H Glucose 182 H POC Glucose Lactate Calcium 9.4 Phosphorus Magnesium 2.0 Total Bilirubin 3.3 H Direct Bilirubin 1.6 H AST 23 ALT 44 Alkaline Phosphatase 698 H Ammonia Troponin I High Sens Total Protein 6.5 Albumin 3.0 L Triglycerides 93 Cholesterol 144 LDL Cholesterol, Calc 69 VLDL Cholesterol, Calc 19 HDL Cholesterol 56 Cholesterol/HDL Ratio 2.6 Nasal Screen MRSA (PCR) Hep Bs Antigen Negative Hepatitis C Antibody Negative Staphylococcus sp PCR mecA/C-Methicil Resis Gene Staph epidermidis (PCR) Bld Cult ID Panel PCR Diagnostic Findings Abdomen/Pelvis CT 08/10/24 10:05 CT SCAN OF THE ABDOMEN AND PELVIS WITH IV CONTRAST CLINICAL HISTORY: Sepsis. Elevated liver function tests. COMPARISON STUDY: None. TECHNIQUE: Following the IV administration of 93 cc of Optiray 320, CT scan of the abdomen and pelvis is performed from the lung bases to the proximal femora. Images are reviewed in the axial, sagittal, and coronal planes. IV contrast was administered without complication. A dose lowering technique was utilized adhering to the principles of ALARA. CT DOSE: 829.53 mGy.cm FINDINGS: The heart is mildly enlarged. There is extensive coronary artery calcification. Pericardial calcifications are also present. There are trace bilateral pleural effusions. Moderate right middle lobe and right lower lobe airspace opacities favor pneumonia. Left lung opacities favor atelectasis. There is a moderate amount of pneumoperitoneum. Definitive etiology for this free air is not identified on this exam. A gastrostomy tube is noted. However, this appears to be well-positioned. Heterogeneity of the liver is noted. This favors a hepatic steatosis. Nodularity of the liver surface is suggestive of cirrhosis. The spleen is mildly enlarged. Subtle hypodense foci within the spleen are present. These are statistically benign. There are small abdominal and pelvic varices. Adrenal glands, kidneys and pancreas are unremarkable. There are gallstones within the gallbladder. There is no biliary or pancreatic ductal dilatation. There is no evidence for acute cholecystitis. There is no evidence for a bowel obstruction. Rectal wall thickening is noted. There is also mild wall thickening of the ascending colon. Several mildly enlarged ileocolic lymph nodes measure up to 1 x 1 cm. Hurt balloon within the bladder is present. Bladder wall thickening is accentuated by underdistention. There are no fluid collections. There is no significant ascites. Extensive atherosclerotic plaque within the abdominal aorta is present. IMPRESSION: 1. Moderate pneumoperitoneum of uncertain etiology. No definitive source identified by CT. Gastrostomy tube appears to be well-positioned. If recent manipulation or placement, this could account for the free air. However, an occult perforated hollow viscus cannot be excluded. Findings discussed with Dr. Koch at time of dictation. 2. Right lower lobe and right middle lobe airspace opacities suggestive of pneumonia or aspiration pneumonitis. Trace bilateral pleural effusions. 3. Hepatic steatosis and suspected cirrhosis. Mild splenomegaly and small varices. 4. Mild wall thickening of the ascending colon and rectum. The findings may represent a nonspecific proctocolitis or be related to portal hypertension. Mildly enlarged ileocolic lymph nodes which should be assessed on short-term follow-up CT to ensure resolution and exclude to the possibility of an underlying colonic lesion. 5. Bladder wall thickening, accentuated by underdistention. This could be correlated with urinalysis. ACT 112: Negative or not required by law. Electronically signed by: Jung Willis M.D. 08/10/2024 3:18 PM
[2024-08-11] MEDS: MEROPENEM 500 MG in SYRINGE 0 ML IV SCH (12:46)
[2024-08-11] MEDS: METOPROLOL TARTRATE 1 MG/ML VIAL IV SCH (12:52)
[2024-08-11] MEDS: LORazepam 2 MG/1 ML VIAL IV STA (13:05)
--- NOTE | 2024-08-11 15:28 | Pharmacy Report ---
Pharmacy PK ABX Note - Date of Service August 11, 2024 - Assessment and Plan Assessment 54 year old F receiving empiric vancomycin and meropenem (changed from cefepime) for treatment of sepsis secondary to pneumonia vs. UTI. Pertinent microbiologic data includes: Positive MRSA Nasal Swab, blood cultures (1 of 2) growing MRSE, urine culture growing Klebsiella variicola (sensitivities pending). Patient w/ recent 3 month long hospitalization discharged to [facility] on 07/23/24. PMH includes cerebral palsy, Coulter syndrome, moderate intellectual delay, T2DM, HFrEF, PEG tube w/ history of aspiration pneumonia, and history of c.diff colitis. Renal function appears to be at/near baseline. Intermittent fevers/low-grade fevers noted. Day # 2 of antimicrobial therapy. Plan Vancomycin * Current regimen: 750 mg IV every 12 hours * Random level obtained 08/11/24 resulted as 20.5 mcg/mL. This is predicted to achieve target AUC/BELÉN of 400-600 mg/L.hr * Predicted AUC at steady state: 439 mg/L.hr * Change to 1000 mg IV every 12 hours * Will repeat level in the next 48-72 hours if therapy is continued and/or change in patient clinical status Pharmacy will continue to follow and will adjust dose/frequency as necessary. Thank you. Pharmacy has transitioned to AUC monitoring for vancomycin. AUC/BELÉN is the preferred PK/PD target and is associated with decreased risk of nephrotoxicity compared to traditional trough targets.
[2024-08-11] MEDS: VANCOMYCIN HCL 1,000 MG/270 ML BAG IV SCH (20:22)
[2024-08-11] MEDS: OLANZapine 10 MG/2.1 ML SDV IM SCH (23:24)
[2024-08-12] MEDS: DEXTROSE 50% 50 ML SYRINGE IV ONE (07:33)
[2024-08-12] MEDS ORDERED: GLUCOSE 10 TAB/TUBE PO PRN (08:00)
[2024-08-12] MEDS ORDERED: CARBOHYDRATES FOR HYPOGLYCEMIA PO PRN (08:00)
[2024-08-12] MEDS ORDERED: GLUCAGON FOR INJ 1 MG VIAL SQ PRN (08:00)
[2024-08-12] MEDS ORDERED: GLUCOSE 40% GEL 15 GM TUBE PO PRN (08:00)
[2024-08-12] MEDS ORDERED: DEXTROSE 50% 50 ML SYRINGE IV PRN (08:00)
[2024-08-12] MEDS: D5NSS + 20MEQ KCL 20 MEQ/1,000 ML BAG IV SCH (08:15)
[2024-08-12 08:29] LABS: Basophils # (auto) 0.02 K/uL (0.00-0.20); Basophils % (auto) 0.2 %; Eosinophils # (auto) 0.08 K/uL (0.00-0.50); Eosinophils % (auto) 0.9 %; Hematocrit (blood only) 34.4 % (37.0-47.0); Hemoglobin 10.5 g/dl (12.0-16.0); Immature Granulocytes # (auto) 0.05 K/uL (0.01-0.20); Immature Granulocytes % (auto) 0.5 %; Lymphocytes # (auto) 0.72 K/uL (1.20-3.40); Lymphocytes % (auto) 7.9 %; Mean Corpuscular Hemoglobin 30.4 pg (25.0-34.0); Mean Corpuscular Hgb Conc 30.5 g/dL (32.0-36.0); Mean Corpuscular Volume 99.7 fL (80.0-100.0); Mean Platelet Volume 10.6 fL (9.4-12.4); Monocytes # (auto) 0.57 K/uL (0.11-0.59); Monocytes % (auto) 6.3 %; Neutrophils # (auto) 7.66 K/uL (1.40-6.50); Neutrophils % (auto) 84.2 %; Platelet Count 182 K/uL (130-400); RDW Coefficient of Variation 15.2 % (11.5-14.5); RDW Standard Deviation 55.1 fL (36.4-46.3); Red Blood Count 3.45 M/uL (4.20-5.40)
[2024-08-12 08:47] LABS: Albumin Level 2.9 gm/dl (3.4-5.0); Bilirubin Direct 1.2 mg/dl (0-0.2)
[2024-08-12 08:52] LABS: BUN Creatinine Ratio 46.5 (10-20); Calcium 9.3 mg/dl (8.6-10.3); Creatinine Clr Calc Pharmacy 50.4 ml/min; Potassium 3.9 mmol/L (3.5-5.1)
--- NOTE | 2024-08-12 09:03 | XRay Report ---
KUB HISTORY: Rule out free air COMPARISON STUDY: CT of the abdomen and pelvis dated 08/10/2024 FINDINGS: 2 supine views of the abdomen demonstrated no evidence of free air. Erect or decubitus view s would be more sensitive. The visualized bowel gas pattern is nonspecific. The properitoneal fat lilibeth es are maintained. There is a gastrostomy tube identified in left upper quadrant. There are calcified gallstones present. There is advanced bilateral osteoarthritis of the hips and degenerative disc dis ease in the lumbar spine. IMPRESSION: No definite evidence of free air although supine positioning is not standard for the eval uation of free air. ACT 112: Negative or not required by law. The above report was generated using voice recognition software. It may contain grammatical, syntax o r spelling errors. Electronically signed by: Evie Plascencia M.D. 08/12/2024 9:02 AM
--- NOTE | 2024-08-12 09:54 | Surgery Progress Note ---
Date of Service August 12, 2024 Assessment & Plan (1) Pneumoperitoneum: Plan: benign abdominal exam KUB without signs of free air; resolved or resolving will get g-tube study if in correct position in stomach, then can use tube as needed Admission and Anticipated Discharge Date Admission Date: August 10, 2024 Subjective communicative this AM confused Review of Systems Constitutional: no fever Gastrointestinal: no abdominal pain and no nausea Physical Exam Constitutional: WD/WN, vitals as above Eyes: no scleral abnormality Neck: trachea midline Respiratory: normal respiratory effort, lungs clear to auscultation Cardiovascular: RRR, no murmur, no edema Gastrointestinal (Abdomen): Inspection/Auscultation: abdomen normal to inspection and normal bowel sounds; abdomen not distended Percussion/Palpation: abdomen soft; abdomen nontender, no guarding and abdomen not rigid Musculoskeletal: Head/Neck/Chest: normocephalic and head atraumatic Skin: no rashes, warm and dry Results & Data Vital Signs (Past 12 Hours) Vital Signs Temp Pulse Pulse Resp BP BP Pulse Ox 08/12/24 07:53 36.6 C 102 H 16 132/81 99 08/12/24 07:27 103 H 17 98 08/12/24 06:06 93 H 132/82 08/12/24 05:51 107 H 125/78 08/12/24 05:50 107 H 125/78 08/12/24 03:00 36.7 C 105 H 16 134/82 99 08/11/24 23:57 81 102/69 08/11/24 23:42 96 H 122/84 08/11/24 23:32 36.5 C 96 H 14 122/84 98 08/11/24 22:00 97 H O2 Del Method O2 Flow Rate 08/12/24 07:53 Oxymask 4.0 08/12/24 07:27 Oxymask 4 08/12/24 06:06 08/12/24 05:51 08/12/24 05:50 08/12/24 03:00 Oxymask 4 08/11/24 23:57 08/11/24 23:42 08/11/24 23:32 Oxymask 4 08/11/24 22:00 Diagnostic Findings KUB HISTORY: Rule out free air COMPARISON STUDY: CT of the abdomen and pelvis dated 08/10/2024 FINDINGS: 2 supine views of the abdomen demonstrated no evidence of free air. Erect or decubitus views would be more sensitive. The visualized bowel gas pattern is nonspecific. The properitoneal fat lines are maintained. There is a gastrostomy tube identified in left upper quadrant. There are calcified gallstones present. There is advanced bilateral osteoarthritis of the hips and degenerative disc disease in the lumbar spine. IMPRESSION: No definite evidence of free air although supine positioning is not standard for the evaluation of free air
[2024-08-12] MEDS: ALBUT/IPRATROP 3MG/0.5MG NEB 3 ML VIAL NEB SCH (12:07)
--- NOTE | 2024-08-12 12:28 | XRay Report ---
KUB WITH CONTRAST INJECTION CLINICAL HISTORY: eval PEG tube with gastrografin COMPARISON STUDY: CT of the abdomen and pelvis August 10, 2024. TECHNIQUE: Initially, a esthetician facialist KUB was obtained. 40 cc of Optiray 320 was then injected via the PEG an d a KUB was obtained. FINDINGS: Bowel gas pattern is normal. The stomach and duodenum are opacified following headache inje ction. No extraluminal contrast is identified. Gastroesophageal reflux is incidentally noted. IMPRESSION: 1. Appropriately positioned PEG. No contrast extravasation. 2. Gastroesophageal reflux. ACT 112: Negative or not required by law. Electronically signed by: Jung Willis M.D. 08/12/2024 12:25 PM
--- NOTE | 2024-08-12 15:18 | Pharmacy Report ---
Pharmacy Glycemic Short Note 2 - Date of Service August 12, 2024 - Glycemic Short BSG Results (Last 24 hours): 08/11/24 08/11/24 08/11/24 17:53 21:13 23:37 Glucose POC Glucose 129 H 119 H 83 08/12/24 08/12/24 08/12/24 05:30 07:15 07:18 Glucose POC Glucose 70 69 L* 69 L* 08/12/24 08/12/24 08/12/24 07:52 07:56 11:26 Glucose 139 H POC Glucose 150 H 127 H OUTPATIENT ANTIDIABETIC REGIMEN: * Lantus 45 units SC daily * Humalog ACHS SSI HbA1c: 7.2% (08/10/24) ASSESSMENT: 08/12/24: * Blood sugars well-controlled yesterday, but unfortunately patient did have low this morning (69 mg/dL) * D5-NSS + 20 KCl @70 mL/hr initiated while not using PEG tube, still unsure if this will be used today * Will decrease basal insulin today * Remains on vancomycin and meropenem 08/11/24: * is a 54 year old female with history of cerebral palsy, Coulter syndrome, intellectual delay, HFrEF, T2DM, presence of PEG tube with history of aspiration pneumonia requiring intubation, and recent prolonged hospitalization at [facility] * Patient presented to ED yesterday from long-term care home facility due to altered mental status and hyperglycemia * Broad spectrum IV antibiotics started in ED for treatment of sepsis with presumed source being right lower lobe pneumonia * Insulin gtt and gentle IV fluids initiated in ED for treatment of HHS * HHS and hyperglycemia resolved over the course of day yesterday and insulin gtt ultimately transitioned to SC basal/bolus regimen this AM * Patient is NPO, avoiding tube feeds as well at this time PLAN FOR INPATIENT GLYCEMIC CONTROL: * Hold outpatient oral diabetes medications * Basal insulin * Lantus 5-10-15 units SC HS (see EHR for details) * Bolus insulin * NovoLog per scale ACHS or Q6hrs while NPO * Goal Range: Low 110 mg/dL - High 140 mg/dL * Correction Factor: 30 mg/dL/unit * Nutritional / Prandial insulin per carb ratio of 1 unit per 10 grams CHO consumed
--- NOTE | 2024-08-12 16:31 | Hospitalist Progress Note ---
Date of Service August 12, 2024 Assessment & Plan (1) Sepsis: (2) Pneumonia: (3) Acute respiratory failure with hypoxia: (4) Pneumoperitoneum: Plan This patient is a 54-year-old female with a history of cerebral palsy, Levin syndrome, moderate intellectual delay, mostly nonverbal, hemorrhagic CVA, dilated cardiomyopathy/chronic HFrEF, severe coronary artery calcifications, chronically elevated LFTs, DM 2, UTIs with resistance to Zosyn, PEG tube with history of aspiration pneumonia requiring intubation, GERD, G6PD deficiency, neuropathy, C. difficile colitis, chronic respiratory failure with hypoxemia, who recently was admitted to the [facility] for approximately 3 months for UTI and encephalopathy, discharged on July 23 to [facility]-with prolonged hospital stay due to issues obtaining legal guardianship and long-term placement in skilled nursing. She presents to the ED after being found to be more lethargic than usual and having a very elevated blood glucose level. On admission, she was nonverbal, febrile, tachycardic, with leukocytosis, elevated LFTs, with RLL pneumonia and UTI found. CT abdomen/pelvis then showed moderate pneumoperitoneum without clear perforated viscus or other acute abnormality, G-tube in place. She was obtunded x 2 days and now improved significantly She is admitted for sepsis secondary to pneumonia, UTI, acute respiratory failure with hypoxia, HHS, acute metabolic encephalopathy, and pneumoperitoneum from jostled G-tube #Sepsis/RLL PNA/acute respiratory failure with hypoxemia/UTI/acute metabolic encephalopathy/Staphylococcus epidermidis bacteremia-patient with leukocytosis, fever, tachycardia, RLL PNA on CXR, abnormal UA, requiring 2L NC O2. Was quite lethargic with fever which is now resolved. BPs normal, lactate negative. Procalcitonin negative. Was given IV cefepime and vancomycin as well a small boluses of IV fluids given history of cardiomyopathy. Treating for gram- negative pneumonia coverage given that she resides in a nursing facility and was in hospital for 3 months prior to that. Has a history of Zosyn resistance in the past with a previous UTI. Encephalopathy secondary to sepsis but could also be from HHS which is now resolved. ABG without evidence of CO2 narcosis. Hurt catheter placed. CT abdomen/pelvis with evidence of cirrhosis but no biliary ductal dilatation or cholecystitis. With excessive salivation and requires frequent suctioning but now improved and weaned off supplemental O2. Urine cx with Klebsiella variicola, pansensitive. Blood cxs NGTD, Sputum cx mod normal lakesha-prelim -dc IV maintenance fluids and resume enteral feeds now that pneumoperitoneum resolved -Neurology recommends discontinuing cefepime due to propensity for encephalopathy-changed to meropenem and will continue vancomycin -Follow sputum culture, and repeat blood cultures - suspect staph epi is a contaminant - Follow CBC, CMP in the a.m. - Acetaminophen as needed for fever - change IV Robinul to per PEG tube RObinul now that can use PEG tube - continue suctioning as needed-appreciate speech consult #Pneumoperitoneum-no etiology found on imaging but no evidence clinically of peritonitis on examination. Appreciate surgery consultation. Could be from jostling of PEG tube which is in place. Abdomen remained soft, NT. KUB and G- tube study on 08/12 now normal and G tube functioning and in proper positioning. Ok to use PEG tube as per Surgery - Keep n.p.o. and resume enteral feeds-use continuous feeds and titrate up- underwater photographer recommendations appreciated - Appreciate surgery management #Elevated LFTs-review of outpatient labs from 06/2024 reveal chronically elevated total bilirubin/AST/ALT/alkaline phosphatase. Review of outpatient CT A/P in 06/2024 reports "normal" liver, has gallstones but no bile duct dilatation. CT A/P here with evidence of cirrhosis but no biliary ductal dilatation. Could be side effect of medication? Colonoscopy in 06/2024 was normal after seeing a suspected colon mass on CT A/P previously. LFTs here continue to be much improved, TBili stable at 3.0, AST/ALT normal, and Alk phos down a lot to the 500s - Follow LFTs-improving - Check hepatitis panel-pending - continue to hold atorvastatin #DM2/HHS-with blood glucose 600 on arrival, serum bicarbonate is actually elevated. ABG without acidosis. Legal guardian reports that she has been having elevated blood glucose in the 500s since admission to the skilled nursing and a change in her tube feeds. [facility] records show she has been on Lantus 45 units daily. She is allergic to metformin. Glucose now improved on insulin drip and now on basal and bolus insulin. Became hypoglycemic AM 08/12 while no enteral feeds. HgbA1c well-controlled at 7.2% -treated hypoglycemia with 1/2 amp D50 and started D5NS w/ KCl -resuming tube feeds and will now dc IVFs - Pharmacy glycemic consult, now on Lantus and NovoLog #Elevated troponin/myocardial demand ischemia/chronic HFrEF/HTN-troponin mildly elevated at 40 on arrival and then trended downward, ECG without acute ischemic changes. She has note of severe coronary artery calcifications on recent CT abdomen/pelvis. Echocardiogram here with EF 35-40%, positive WMA's with inferior, posterior, and inferoseptal elkins being akinetic and all other segments being hypokinetic, no valvular disease BPs here are normal. -resume metoprolol tartrate 25mg per peg bid and dc IV scheduled lopressor -not on guideline directed therapy as Toprol-XL cannot be crushed-consider conversion to carvedilol instead which I believe can be crushed -It appears not on Entresto or other guideline directed medical therapy-will need to obtain cardiology records to see if a reason for this -continue to hold home Lasix while giving hydration for sepsis, but may need to resume soon -consider adding Plavix for CAD and will holding home atorvastatin for elevated LFTs #History of CVA/CP/seizure disorder/levin syndrome/intellectual delay- encephalopathy now resolved, much improved. Has baseline right hemiparesis and a h/o hypertensive hemorrhagic CVA at age 37. Consult neurology-appreciate recommendations CT head here with old stroke on left and age indeterminate on right. Review of old CT head and brain MRI from many years ago also shows old infarct deep frontal lobe-likely same strokes as before - resume home clonazepam enterally-dc scheduled lorazepam 1 Mg IV scheduled twice daily - Continue supportive care - Holding statin due to elevated LFTs -resume home Lamictal - Continue Robinul and resume tablet dosing, dc IV -check brain MRI now that encephalopathy improved to see if any new strokes #Bipolar disorder with psychotic features-was unable to receive home medications when not able to use PEG - resume enteral Risperdal and dc IM Zyprexa at bedtime - resume home Lamictal, duloxetine - Appreciate neurology consultation #Chronic respiratory failure with hypoxemia-likely secondary to heart failure and possibly sleep disordered breathing? And has a history of intubation for acute hypoxic and hypercarbic respiratory failure. Unsure what home O2 requirement is - Continue home budesonide, holding home Lasix - Continue with suctioning, bronchodilators #GERD/PEG tube in place-with pneumoperitoneum, G-tube in place on CT and now improved. G tube study normal, no free air on KUB, ok to resume use of PEG - Consult dietitian for tube feed orders appreciated-recommend continuous infusion or 18 hr infusion of feeds rather than bolus feeds - dc IV PPI and resume home Prevacid per PEG tube DVT prophylaxis-Lovenox SQ, SCDs Disposition--continued stay PCU, full code as per discussion with legal guardian, Florencia Mcallister, however they will rely on the patient's sister to make recommendations as to CODE STATUS if prognosis poor. Patient's sister, Caity Osborn, phone number [phone], however she is not legally allowed to make any decisions or consent for medical care. Eventually back to SNF, however the sister plans on filing a complaint against [facility] and wants to talk to trimming caser about this and about if can get her to another skilled nursing home Admission and Anticipated Discharge Date Admission Date: August 10, 2024 Subjective Pt significantly improved with mentation today. Was moaning out loud and not talking earlier as per nursing but when I saw her early afternoon, she was awake, alert, pleasant. Denies abd pain, told me she was hungry and wanted to eat. Denies SOB, cough. Later, she yells out "Wash my hair!" I discussed her care with Surgery, the Biofuels Technology Manager, and pt's sister and mother at the bedside. I spent 25 min with discussing pt's care with her mom and sister at bedside and then another 10 min reviewing old radiology reports obtained from [facility]. Tele with NSR, ST rates 90-110s Physical Exam Constitutional: no acute distress Eyes: + anicteric sclerae; no conjunctival abn ormality Respiratory: normal respiratory effort; no cough Auscultation: + crackles (Right base) Cardiovascular: RRR, no murmur, no edema Gastrointestinal (Abdomen): Inspection/Auscultation: normal bowel sounds; + abdomen abnormal to inspection (PEG tube in place) and abdomen not distended Percussion/Palpation: abdomen soft and + hepatomegaly (With firm liver edge); abdomen nontender, no hernia and no abdominal mass Musculoskeletal: Extremities: + extremities abnormal to inspection (Atrophy bilateral LEs) Neurologic: right sided weakness Psychiatric: Orientation: alert Results & Data Results & Data Vital Signs (Past 12 Hours) Vital Signs Temp Pulse Pulse Resp BP BP Pulse Ox 08/12/24 14:53 93 H 14 96 08/12/24 14:38 36.7 C 93 H 17 120/78 96 08/12/24 14:38 94 H 120/78 08/12/24 14:13 124 H 08/12/24 12:56 114 H 154/100 H 08/12/24 12:21 36.8 C 114 H 15 154/100 H 99 08/12/24 12:08 114 H 15 99 08/12/24 10:49 111 H 08/12/24 07:53 36.6 C 102 H 16 132/81 99 08/12/24 07:27 103 H 17 98 08/12/24 06:06 93 H 132/82 08/12/24 05:51 107 H 125/78 08/12/24 05:50 107 H 125/78 O2 Del Method O2 Flow Rate 08/12/24 14:53 Oxymask 3 08/12/24 14:38 Oxymask 4.0 08/12/24 14:38 08/12/24 14:13 08/12/24 12:56 08/12/24 12:21 Oxymask 3.5 08/12/24 12:08 Oxymask 3.5 08/12/24 10:49 08/12/24 07:53 Oxymask 4.0 08/12/24 07:27 Oxymask 4 08/12/24 06:06 08/12/24 05:51 08/12/24 05:50 Laboratory Results CBC, CMP, hepatitis panel, blood and sputum , urine cxs reviewed Diagnostic Findings KUB and G-tube study reviewed PG Care Time/CCT Total # of Minutes Spent Total Time Spent with Patient: Total time spent is greater than 50% in coordination of care (as documented) at patient's floor/unit and/or counseling patient: Coding Level of Care Code 39167 SUB INP/OBS CARE 3/50MIN Diagnoses Sepsis A41.9 Pneumonia J18.9 Laterality: right Lung location: lower lobe of lung Pneumonia type: due to unspecified organism Acute respiratory failure with hypoxia J96.01 Pneumoperitoneum K66.8 (2) Pneumonia Laterality: right Lung location: lower lobe of lung Pneumonia type: due to unspecified organism Qualified Code(s): J18.9 - Pneumonia, unspecified organism
[2024-08-12] MEDS ORDERED: LORazepam 2 MG/1 ML VIAL IV PRN (16:36)
[2024-08-12 16:58] LABS: Hepatitis A Antibody IgM NON-REACTIVE (NON-REACTIVE); Hepatitis B Core Antibody IgM NON-REACTIVE (NON-REACTIVE)
[2024-08-12] MEDS: TUBE FEEDING WATER FLUSH PEG SCH (19:54)
[2024-08-12] MEDS: METOPROLOL TARTRATE 25 MG TAB PEG SCH (20:03)
[2024-08-12] MEDS: PEPTAMEN 1.5 CAL 1,000 ML BAG PEG SCH (20:06)
[2024-08-12] MEDS: clonazePAM 0.5 MG TAB PO SCH (20:13)
[2024-08-12] MEDS: LANTUS PER UNIT CHARGE SC SCH (20:36)
--- NOTE | 2024-08-13 00:04 | Magnetic Resonance Report ---
Exam(s): MRI HEAD Without Contrast EXAM: MR Head Without Intravenous Contrast CLINICAL HISTORY: Reason for exam: abnormal CT, assess for acute/subacute CVA. TECHNIQUE: Magnetic resonance images of the head/brain without intravenous contrast in multiple planes. Moderate motion artifact. COMPARISON: Head CT 08/10/24. FINDINGS: Brain: Stable chronic encephalomalacia left basal ganglia. No mass effect or acute infarct. No acute hemorrhage. Mild atrophy and chronic white matter disease. Ventricles: No hydrocephalus or midline shift. Bones/joints: No acute finding. Soft tissues: No scalp hematoma. Visualized Sinuses: Clear. Mastoid air cells: No mastoid effusion. IMPRESSION: 1. Stable chronic left basal ganglia infarct and age-related findings. 2. No acute infarct, bleed, or acute intracranial abnormality. 3. Moderate motion artifact. Electronically signed by: Suzanne Guerrero M.D. 08/13/24 00:03 AM
[2024-08-13 06:47] LABS: Basophils # (auto) 0.03 K/uL (0.00-0.20); Basophils % (auto) 0.4 %; Eosinophils # (auto) 0.09 K/uL (0.00-0.50); Eosinophils % (auto) 1.3 %; Hemoglobin 10.2 g/dl (12.0-16.0); Immature Granulocytes # (auto) 0.03 K/uL (0.01-0.20); Immature Granulocytes % (auto) 0.4 %; Lymphocytes # (auto) 0.96 K/uL (1.20-3.40); Lymphocytes % (auto) 14.3 %; Mean Corpuscular Hemoglobin 31.2 pg (25.0-34.0); Mean Corpuscular Hgb Conc 30.9 g/dL (32.0-36.0); Mean Corpuscular Volume 100.9 fL (80.0-100.0); Mean Platelet Volume 10.8 fL (9.4-12.4); Monocytes # (auto) 0.56 K/uL (0.11-0.59); Monocytes % (auto) 8.4 %; Neutrophils # (auto) 5.02 K/uL (1.40-6.50); Neutrophils % (auto) 75.2 %; Platelet Count 174 K/uL (130-400); RDW Coefficient of Variation 14.9 % (11.5-14.5); RDW Standard Deviation 56.1 fL (36.4-46.3); Red Blood Count 3.27 M/uL (4.20-5.40); White Blood Count 6.69 K/ul (4.8-10.8)
[2024-08-13 07:03] LABS: Albumin Level 2.7 gm/dl (3.4-5.0); Bilirubin,Total 2.5 mg/dl (0.2-1.0); Creatinine Clr Calc Pharmacy 54.9 ml/min; Magnesium 1.9 mg/dl (1.7-2.4); Potassium 3.8 mmol/L (3.5-5.1); Total Protein 5.6 gm/dl (6.0-8.3)
[2024-08-13] MEDS: LANSOPRAZOLE 30 MG SOLTAB PEG SCH (09:48)
--- NOTE | 2024-08-13 09:52 | Pharmacy Report ---
Pharmacy PK ABX Note - Date of Service August 13, 2024 - Assessment and Plan Assessment 08/12: * Vancomycin level obtained this morning was supratherapeutic (38.7 mcg/mL). AM dose of vancomycin was held this morning and the dose was changed to 500mg iv q 12 hours starting this evening. * Patient continues on meropenem as well. * Urine culture resulted as pansensitive Klebsiella varricola, repeat blood cultures x 2 from 08/12 are pending. * Has been afebrile x 48 hours, leukocytosis resolved, and renal function has been stable. 08/11: 54 year old F receiving empiric vancomycin and meropenem (changed from cefepime) for treatment of sepsis secondary to pneumonia vs. UTI. Pertinent microbiologic data includes: Positive MRSA Nasal Swab, blood cultures (1 of 2) growing MRSE, urine culture growing Klebsiella variicola (sensitivities pending). Patient w/ recent 3 month long hospitalization discharged to [facility] on 07/23/24. PMH includes cerebral palsy, Coulter syndrome, moderate intellectual delay, T2DM, HFrEF, PEG tube w/ history of aspiration pneumonia, and history of c.diff colitis. Renal function appears to be at/near baseline. Intermittent fevers/low-grade fevers noted. Day # 4 of antimicrobial therapy. Plan Vancomycin * Current regimen: 1000 mg IV every 12 hours * Random level obtained 08/13/24 resulted as 38.7 mcg/mL. This is predicted to achieve an AUC significantly above the goal range. * Change to 500 mg IV every 12 hours * Will repeat level in the next 48-72 hours if therapy is continued and/or change in patient clinical status Pharmacy will continue to follow and will adjust dose/frequency as necessary. Thank you. Pharmacy has transitioned to AUC monitoring for vancomycin. AUC/BELÉN is the preferred PK/PD target and is associated with decreased risk of nephrotoxicity compared to traditional trough targets.
--- NOTE | 2024-08-13 10:39 | Surgery Progress Note ---
Date of Service August 13, 2024 Assessment & Plan (1) Pneumoperitoneum: Plan: benign abdominal exam KUB without signs of free air; resolved or resolving PEG tube study, no extravasation, normal positioning okay to continue tube feeds our services signing off Discussed with Dr. ramos who agrees with above. Admission and Anticipated Discharge Date Admission Date: August 10, 2024 Subjective patient awake and alert, watching tv upon entering room, smiles denies abdominal pain, nausea Physical Exam Constitutional: cooperative and comfortable; no acute distress and not ill appearing Respiratory: normal respiratory effort and + cough; no respiratory distress Gastrointestinal (Abdomen): Inspection/Auscultation: abdomen normal to inspection; abdomen not distended Percussion/Palpation: abdomen soft; abdomen nontender, no guarding and abdomen not rigid PEG tube LUQ intact, no surrounding erythema Skin: no rashes, warm and dry Psychiatric: Orientation: alert Results & Data Vital Signs (Past 12 Hours) Vital Signs Temp Pulse Pulse Resp BP Pulse Ox O2 Del Method 08/13/24 10:18 Room Air 08/13/24 08:24 37.1 C 130 H 17 135/80 94 Room Air 08/13/24 07:09 116 H 20 88 L Room Air 08/13/24 04:36 16 08/13/24 03:00 36.5 C 106 H 18 112/74 93 Room Air 08/12/24 22:50 36.3 C L 101 H 18 123/81 95 Room Air 08/12/24 22:43 101 H FiO2 08/13/24 10:18 08/13/24 08:24 08/13/24 07:09 21 08/13/24 04:36 08/13/24 03:00 08/12/24 22:50 08/12/24 22:43 Laboratory Results 08/13/24 08/13/24 08/12/24 Range/Units 06:19 05:58 23:58 WBC 6.69 (4.8-10.8) K/ul RBC 3.27 L (4.20-5.40) M/uL Hgb 10.2 L (12.0-16.0) g/dl Hct 33.0 L (37.0-47.0) % MCV 100.9 H (80.0-100.0) fL MCH 31.2 (25.0-34.0) pg MCHC 30.9 L (32.0-36.0) g/dL RDW Std Deviation 56.1 H (36.4-46.3) fL RDW Coeff of Ricci 14.9 H (11.5-14.5) % Plt Count 174 (130-400) K/uL MPV 10.8 (9.4-12.4) fL Immature Gran % (Auto) 0.4 % Neut % (Auto) 75.2 % Lymph % (Auto) 14.3 % Andrews % (Auto) 8.4 % Eos % (Auto) 1.3 % Baso % (Auto) 0.4 % Neut # (Auto) 5.02 (1.40-6.50) K/uL Lymph # (Auto) 0.96 L (1.20-3.40) K/uL Andrews # (Auto) 0.56 (0.11-0.59) K/uL Eos # (Auto) 0.09 (0.00-0.50) K/uL Baso # (Auto) 0.03 (0.00-0.20) K/uL Immature Gran # (Auto) 0.03 (0.01-0.20) K/uL Sodium 144 (136-145) mmol/L Potassium 3.8 (3.5-5.1) mmol/L Chloride 110 H (98-107) mmol/L Carbon Dioxide 29 (21-32) mmol/L Anion Gap 5 (3-11) BUN 34 H (6-23) mg/dl Creatinine 0.79 (0.6-1.2) mg/dl Est Cr Clr Drug Dosing 54.9 ml/min eGFR 88.28 BUN/Creatinine Ratio 43.0 H (10-20) Glucose 169 H (70-99(Fasting)) mg/dl POC Glucose 171 H 162 H (70-99) mg/dl Calcium 9.0 (8.6-10.3) mg/dl Phosphorus 3.0 (2.5-4.9) mg/dl Magnesium 1.9 (1.7-2.4) mg/dl Total Bilirubin 2.5 H (0.2-1.0) mg/dl Direct Bilirubin 1.0 H (0-0.2) mg/dl AST 14 (13-39) U/L ALT 22 (7-52) U/L Alkaline Phosphatase 494 H (34-104) U/L Total Protein 5.6 L (6.0-8.3) gm/dl Albumin 2.7 L (3.4-5.0) gm/dl Random Vancomycin 38.7 H* (10-20) mcg/ml Hepatitis A IgM Ab (NON-REACTIVE) Hep B Core IgM Ab (NON-REACTIVE) 08/12/24 08/12/24 08/12/24 Range/Units 20:29 18:16 11:26 WBC (4.8-10.8) K/ul RBC (4.20-5.40) M/uL Hgb (12.0-16.0) g/dl Hct (37.0-47.0) % MCV (80.0-100.0) fL MCH (25.0-34.0) pg MCHC (32.0-36.0) g/dL RDW Std Deviation (36.4-46.3) fL RDW Coeff of Ricci (11.5-14.5) % Plt Count (130-400) K/uL MPV (9.4-12.4) fL Immature Gran % (Auto) % Neut % (Auto) % Lymph % (Auto) % Andrews % (Auto) % Eos % (Auto) % Baso % (Auto) % Neut # (Auto) (1.40-6.50) K/uL Lymph # (Auto) (1.20-3.40) K/uL Andrews # (Auto) (0.11-0.59) K/uL Eos # (Auto) (0.00-0.50) K/uL Baso # (Auto) (0.00-0.20) K/uL Immature Gran # (Auto) (0.01-0.20) K/uL Sodium (136-145) mmol/L Potassium (3.5-5.1) mmol/L Chloride (98-107) mmol/L Carbon Dioxide (21-32) mmol/L Anion Gap (3-11) BUN (6-23) mg/dl Creatinine (0.6-1.2) mg/dl Est Cr Clr Drug Dosing ml/min eGFR BUN/Creatinine Ratio (10-20) Glucose (70-99(Fasting)) mg/dl POC Glucose 186 H 187 H 127 H (70-99) mg/dl Calcium (8.6-10.3) mg/dl Phosphorus (2.5-4.9) mg/dl Magnesium (1.7-2.4) mg/dl Total Bilirubin (0.2-1.0) mg/dl Direct Bilirubin (0-0.2) mg/dl AST (13-39) U/L ALT (7-52) U/L Alkaline Phosphatase (34-104) U/L Total Protein (6.0-8.3) gm/dl Albumin (3.4-5.0) gm/dl Random Vancomycin (10-20) mcg/ml Hepatitis A IgM Ab (NON-REACTIVE) Hep B Core IgM Ab (NON-REACTIVE) 08/11/24 Range/Units 07:16 WBC (4.8-10.8) K/ul RBC (4.20-5.40) M/uL Hgb (12.0-16.0) g/dl Hct (37.0-47.0) % MCV (80.0-100.0) fL MCH (25.0-34.0) pg MCHC (32.0-36.0) g/dL RDW Std Deviation (36.4-46.3) fL RDW Coeff of Ricci (11.5-14.5) % Plt Count (130-400) K/uL MPV (9.4-12.4) fL Immature Gran % (Auto) % Neut % (Auto) % Lymph % (Auto) % Andrews % (Auto) % Eos % (Auto) % Baso % (Auto) % Neut # (Auto) (1.40-6.50) K/uL Lymph # (Auto) (1.20-3.40) K/uL Andrews # (Auto) (0.11-0.59) K/uL Eos # (Auto) (0.00-0.50) K/uL Baso # (Auto) (0.00-0.20) K/uL Immature Gran # (Auto) (0.01-0.20) K/uL Sodium (136-145) mmol/L Potassium (3.5-5.1) mmol/L Chloride (98-107) mmol/L Carbon Dioxide (21-32) mmol/L Anion Gap (3-11) BUN (6-23) mg/dl Creatinine (0.6-1.2) mg/dl Est Cr Clr Drug Dosing ml/min eGFR BUN/Creatinine Ratio (10-20) Glucose (70-99(Fasting)) mg/dl POC Glucose (70-99) mg/dl Calcium (8.6-10.3) mg/dl Phosphorus (2.5-4.9) mg/dl Magnesium (1.7-2.4) mg/dl Total Bilirubin (0.2-1.0) mg/dl Direct Bilirubin (0-0.2) mg/dl AST (13-39) U/L ALT (7-52) U/L Alkaline Phosphatase (34-104) U/L Total Protein (6.0-8.3) gm/dl Albumin (3.4-5.0) gm/dl Random Vancomycin (10-20) mcg/ml Hepatitis A IgM Ab NON-REACTIVE (NON-REACTIVE) Hep B Core IgM Ab NON-REACTIVE (NON-REACTIVE)
--- NOTE | 2024-08-13 11:48 | Hospitalist Progress Note ---
Date of Service August 13, 2024 Assessment & Plan (1) Sepsis: (2) Pneumonia: (3) Acute respiratory failure with hypoxia: (4) Pneumoperitoneum: Plan This patient is a 54-year-old female with a history of cerebral palsy, Levin syndrome, moderate intellectual delay, mostly nonverbal, hemorrhagic CVA, dilated cardiomyopathy/chronic HFrEF, severe coronary artery calcifications, chronically elevated LFTs, DM 2, UTIs with resistance to Zosyn, PEG tube with history of aspiration pneumonia requiring intubation, GERD, G6PD deficiency, neuropathy, C. difficile colitis, chronic respiratory failure with hypoxemia, who recently was admitted to the [facility] for approximately 3 months for UTI and encephalopathy, discharged on July 23 to [facility]-with prolonged hospital stay due to issues obtaining legal guardianship and long-term placement in detention. She presents to the ED after being found to be more lethargic than usual and having a very elevated blood glucose level. On admission, she was nonverbal, febrile, tachycardic, with leukocytosis, elevated LFTs, with RLL pneumonia and UTI found. CT abdomen/pelvis then showed moderate pneumoperitoneum without clear perforated viscus or other acute abnormality, G-tube in place. She was obtunded x 2 days and now improved significantly She is admitted for sepsis secondary to pneumonia, UTI, acute respiratory failure with hypoxia, HHS, acute metabolic encephalopathy, and pneumoperitoneum from jostled G-tube #Sepsis/RLL PNA/acute respiratory failure with hypoxemia/UTI/acute metabolic encephalopathy/Staphylococcus epidermidis bacteremia-patient with leukocytosis, fever, tachycardia, RLL PNA on CXR, abnormal UA, requiring 2L NC O2. Was quite lethargic with fever which is now resolved. BPs normal, lactate negative, Procalcitonin negative, ABG without CO2 retention. Treating for gram-negative and MRSA pneumonia coverage given that she resides in a nursing facility and was in hospital for 3 months prior to that. Has a history of Zosyn resistance in the past with a previous UTI. Encephalopathy secondary to sepsis but could also be from HHS which is now resolved. CT A/P with cirrhosis but no biliary ductal dilatation or cholecystitis. With excessive salivation requiring frequent suctioning but now improved and weaned off supplemental O2. Urine cx with Klebsiella variicola, pansensitive. Initial BCxs Staph epi likely contaminant, repeat Blood cxs remain NGTD, Sputum cx mod normal [place]. MRSA nasal swab positive Overall significantly improved, back to baseline, sepsis resolved. -continue meropenem and vancomycin -follow repeat blood cultures - suspect staph epi is a contaminant-if repeat BCxs remain no growth, could switch Vanco to doxy via PEG tube (given positive MRSA nasal swab) -Follow CBC, CMP in the a.m. -Acetaminophen as needed for fever -continue PEG tube Robinul for excessive secretions- continue suctioning as needed -appreciate speech consult -recommend discontinuing oxycodone and minimizing sedating medications that could lead to worsening mentation and aspiration of saliva. Recommend good oral care to prevent aspiration PNA #Pneumoperitoneum-no etiology found on imaging but no evidence clinically of peritonitis on examination. Appreciate surgery consultation. Could be from jostling of PEG tube which is in place. Abdomen remained soft, NT. KUB and G- tube study on 08/12 now normal and G tube functioning and in proper positioning. Ok to use PEG tube as per Surgery. Resumed TFs and PEG medications 08/12, tolerating well - Keep n.p.o. and resumed enteral feeds-use continuous feeds and titrate up- puller out recommendations appreciated -recommend continuous infusion of TFs over 18 hours upon return to [facility] rather than bolus feeds to avoid aspiration - Appreciate surgery management #Elevated LFTs-review of outpatient labs from 06/2024 reveal chronically elevated total bilirubin/AST/ALT/alkaline phosphatase. Review of outpatient CT A/P in 06/2024 reports "normal" liver, has gallstones but no bile duct dilatation. CT A/P here with evidence of cirrhosis but no biliary ductal dilatation. Could be side effect of medication? Colonoscopy in 06/2024 was normal after seeing a suspected colon mass on CT A/P previously. LFTs here continue to be much improved, TBili stable at 2-3, AST/ALT now normal, and Alk phos down a lot to the 400s (from 800s). Hepatitis panel negative. Liver biopsy done in [facility] show some mild fibrosis suspected from vasogenic edema/cardiogenic cirrhosis - Follow LFTs-improving - continue to hold atorvastatin #DM2/HHS-with blood glucose 600 on arrival, serum bicarbonate is actually elevated. ABG without acidosis. Legal guardian reports that she has been having elevated blood glucose in the 500s since admission to the detention and a change in her tube feeds. [facility] records show she has been on Lantus 45 units daily and is allergic to metformin. Treated w/ insulin drip and now on basal and bolus insulin. HgbA1c well-controlled at 7.2% - Pharmacy glycemic consult, continue on Lantus and NovoLog, adjust as needed and will need to make final recommendations on discharge keeping in mind she will have a different tube feed on return to [facility] (Jevity 1.5) #Elevated troponin/myocardial demand ischemia/chronic HFrEF/HTN-troponin mildly elevated at 40 on arrival and then trended downward, ECG without acute ischemic changes. She has note of severe coronary artery calcifications on recent CT abdomen/pelvis. Unclear if this is an ischemic or nonischemic CM. Echo here with EF 35-40%, positive WMA's with inferior, posterior, and inferoseptal elkins being akinetic and all other segments being hypokinetic, no valvular disease BPs here are normal. Reviewed Cardiology notes from [facility] 09/2023--> reports previously on Entresto but stopped due to hyperkalemia. Was referred to [facility] [place] but never had consult due to recurring hospitalizations -convert metoprolol tartrate from home to carvedilol 12.5mg per PEG bid as this can be crushed -Entresto caused hyperkalemia -resume Lasix 40mg per PEG qAM (home dose bid) -consider adding Plavix for CAD but given h/o hemorrhagic spontaneous CVA, may hold off -continue holding home atorvastatin for elevated LFTs -f/u with Cardiology as outpt #History of hemorrhagic CVA/CP/seizure disorder/levin syndrome/intellectual delay- encephalopathy now resolved, much improved. Has baseline right hemiparesis and a h/o hypertensive hemorrhagic CVA at age 37. Consult neurology-appreciate recommendations. CT head here with old stroke on left and age indeterminate on right. Review of old CT head and brain MRI from many years ago also shows old infarct deep frontal lobe-likely same strokes as before. MRI brain here old strokes but nothing new. - continue home clonazepam bid and lamictal - Continue supportive care - Holding statin due to elevated LFTs - Continue Robinul #Bipolar disorder with psychotic features-stable - continue Risperdal at bedtime, Lamictal, duloxetine #Chronic respiratory failure with hypoxemia-likely secondary to heart failure and possibly sleep disordered breathing? And has a history of intubation for acute hypoxic and hypercarbic respiratory failure. Unsure what home O2 requirement is if any at all. Now weaned to room air - Continue home budesonide, resuming Lasix - Continue with suctioning, bronchodilators #GERD/PEG tube in place-with pneumoperitoneum, G-tube in place on CT and now improved. G tube study normal, no free air on KUB, resumed use of PEG - Consult dietitian for tube feed orders appreciated-recommend continuous infusion or 18 hr infusion of feeds rather than bolus feeds -continue Prevacid per PEG tube DVT prophylaxis-Lovenox SQ, SCDs Disposition--continued stay but downgrade to med/surg, improving, will likely be ready for discharge to [facility]F in next 1-2 days although Sister has requested change in placement due to concerns for neglect. Pt has a legal guardian named Florencia Mcallister who makes all decisions for patient as guardianship legally taken away from sister. APS recommends avoiding contact with family but guardian says it is ok for us to give them medical updates and visitation, but they cannot make decisions. There is a court order for her to be at [facility] but CM involved and looking into if she can be transferred to somewhere else. Patient's sister, Caity Osborn, phone number [phone], however she is not legally allowed to make any decisions or consent for medical care. Admission and Anticipated Discharge Date Admission Date: August 10, 2024 Subjective Pt requesting mouth swabs. Otherwise denies pain, moving bowels. Asked the nurse for a chicken sandwich. Tele with NSR, ST Physical Exam Constitutional: no acute distress Eyes: + anicteric sclerae Respiratory: normal respiratory effort; no cough Auscultation: + crackles ( Right base) Cardiovascular: RRR, no murmur, no edema Gastrointestinal (Abdomen): Inspection/Auscultation: normal bowel sounds; + abdomen abnormal to inspection (PEG tube in place) and abdomen not distended Percussion/Palpation: abdomen soft and + hepatomegaly (With firm liver edge); abdomen nontender, no hernia and no abdominal mass Musculoskeletal: Extremities: + extremities abnormal to inspection (Atrophy bilateral LEs) Psychiatric: Orientation: alert Results & Data Results & Data Vital Signs (Past 12 Hours) Vital Signs Temp Pulse Pulse Resp BP Pulse Ox O2 Del Method 08/13/24 11:34 36.3 C L 112 H 18 122/80 95 Room Air 08/13/24 11:00 105 H 15 99 Room Air 08/13/24 10:18 Room Air 08/13/24 08:29 112 H 08/13/24 08:24 37.1 C 130 H 17 135/80 94 Room Air 08/13/24 07:09 116 H 20 88 L Room Air 08/13/24 04:36 16 08/13/24 03:00 36.5 C 106 H 18 112/74 93 Room Air FiO2 08/13/24 11:34 08/13/24 11:00 21 08/13/24 10:18 08/13/24 08:29 08/13/24 08:24 08/13/24 07:09 21 08/13/24 04:36 08/13/24 03:00 Laboratory Results CBC, CMP, Mag, phos, urine cx , blood cx, sputum cx reviewed PG Care Time/CCT Total # of Minutes Spent Total Time Spent with Patient: Total time spent is greater than 50% in coordination of care (as documented) at patient's floor/unit and/or counseling patient: Coding Level of Care Code 49643 SUB INP/OBS CARE 3/50MIN Diagnoses Sepsis A41.9 Pneumonia J18.9 Laterality: right Lung location: lower lobe of lung Pneumonia type: due to unspecified organism Acute respiratory failure with hypoxia J96.01 Pneumoperitoneum K66.8 (2) Pneumonia Laterality: right Lung location: lower lobe of lung Pneumonia type: due to unspecified organism Qualified Code(s): J18.9 - Pneumonia, unspecified organism
--- NOTE | 2024-08-13 13:28 | Pharmacy Report ---
Pharmacy Glycemic Short Note 2 - Date of Service August 13, 2024 - Glycemic Short BSG Results (Last 24 hours): 08/12/24 08/12/24 08/12/24 18:16 20:29 23:58 Glucose POC Glucose 187 H 186 H 162 H 08/13/24 08/13/24 08/13/24 05:58 06:19 11:57 Glucose 169 H POC Glucose 171 H 208 H OUTPATIENT ANTIDIABETIC REGIMEN: * Lantus 45 units SC daily * Humalog ACHS SSI HbA1c: 7.2% (08/10/24) ASSESSMENT: 08/13/24; * Patient received a total of 18 units of insulin yesterday (15 units were basal and 3 units were bolus). BSGs were 22-012-999-186mg/dL. * Continuous tube feedings with Peptamen 1.5 were started last evening which explains the higher readings in the evening.--currently at 30ml/hr (33g CHO q 6 hours) * Fasting BSG was 171mg/dL this morning. HS Lantus scale was increased and CR was tightened. * IV fluids were discontinued 08/12/24 * Blood sugars well-controlled yesterday, but unfortunately patient did have low this morning (69 mg/dL) * D5-NSS + 20 KCl @70 mL/hr initiated while not using PEG tube, still unsure if this will be used today * Will decrease basal insulin today * Remains on vancomycin and meropenem 08/11/24: * is a 54 year old female with history of cerebral palsy, Coulter syndrome, intellectual delay, HFrEF, T2DM, presence of PEG tube with history of aspiration pneumonia requiring intubation, and recent prolonged hospitalization at [facility] * Patient presented to ED yesterday from long-term detention facility due to altered mental status and hyperglycemia * Broad spectrum IV antibiotics started in ED for treatment of sepsis with presumed source being right lower lobe pneumonia * Insulin gtt and gentle IV fluids initiated in ED for treatment of HHS * HHS and hyperglycemia resolved over the course of day yesterday and insulin gtt ultimately transitioned to SC basal/bolus regimen this AM * Patient is NPO, avoiding tube feeds as well at this time PLAN FOR INPATIENT GLYCEMIC CONTROL: * Hold outpatient oral diabetes medications * Basal insulin * Lantus 10-15-20 units SC HS (see EHR for details) * Bolus insulin * NovoLog per scale ACHS or Q6hrs while NPO * Goal Range: Low 110 mg/dL - High 140 mg/dL * Correction Factor: 30 mg/dL/unit * Nutritional / Prandial insulin per carb ratio of 1 unit per 8 grams CHO consumed
[2024-08-13] MEDS: carvediloL 12.5 MG TAB PEG SCH (18:17)
[2024-08-13] MEDS: VANCOMYCIN 500 MG in NSS 100mL IV SCH (21:05)
[2024-08-14] MEDS: SODIUM CHLOR 7% 4 ML NEB ONE (07:50)
[2024-08-14] MEDS ORDERED: INSULIN ASPART PER UNIT CHARGE SC SCH (08:00)
[2024-08-14] MEDS ORDERED: SODIUM CHLOR 7% 4 ML NEB NEB PRN (08:06)
[2024-08-14] MEDS: FUROSEMIDE 40 MG TAB PO SCH (08:38)
[2024-08-14 11:43] LABS: Basophils # (auto) 0.04 K/uL (0.00-0.20); Basophils % (auto) 0.5 %; Eosinophils # (auto) 0.08 K/uL (0.00-0.50); Eosinophils % (auto) 0.9 %; Hematocrit (blood only) 35.6 % (37.0-47.0); Hemoglobin 10.8 g/dl (12.0-16.0); Immature Granulocytes # (auto) 0.06 K/uL (0.01-0.20); Immature Granulocytes % (auto) 0.7 %; Lymphocytes # (auto) 1.15 K/uL (1.20-3.40); Mean Corpuscular Hemoglobin 30.5 pg (25.0-34.0); Mean Corpuscular Hgb Conc 30.3 g/dL (32.0-36.0); Mean Corpuscular Volume 100.6 fL (80.0-100.0); Mean Platelet Volume 10.9 fL (9.4-12.4); Monocytes # (auto) 0.74 K/uL (0.11-0.59); Monocytes % (auto) 8.4 %; Neutrophils # (auto) 6.75 K/uL (1.40-6.50); Neutrophils % (auto) 76.5 %; Platelet Count 177 K/uL (130-400); RDW Coefficient of Variation 14.7 % (11.5-14.5); RDW Standard Deviation 55.1 fL (36.4-46.3); Red Blood Count 3.54 M/uL (4.20-5.40); White Blood Count 8.82 K/ul (4.8-10.8)
--- NOTE | 2024-08-14 11:51 | Hospitalist Progress Note ---
Date of Service August 14, 2024 Assessment & Plan (1) Sepsis: Plan: This patient is a 54-year-old female with a history of cerebral palsy, Levin syndrome, moderate intellectual delay (mostly nonverbal), hemorrhagic CVA, dilated cardiomyopathy/chronic HFrEF, severe coronary artery calcifications, chronically elevated LFTs, DM 2, UTIs with resistance to Zosyn, PEG tube with history of aspiration pneumonia requiring intubation, GERD, G6PD deficiency, neuropathy, C. difficile colitis, chronic respiratory failure with hypoxemia, who recently was admitted to the [facility] for approximately 3 months for UTI and encephalopathy, discharged on July 23 to [facility]. Her prolonged hospital stay due to issues obtaining legal guardianship and long-term placement in alf. She presents to the ED after being found to be more lethargic than usual and having a very elevated blood glucose level. On admission, she was nonverbal, febrile, tachycardic, with leukocytosis, elevated LFTs, with RLL pneumonia and UTI found. CT abdomen/pelvis then showed moderate pneumoperitoneum without clear perforated viscus or other acute abnormality, G-tube in place. She was obtunded x 2 days and now has improved significantly. She is admitted for sepsis secondary to pneumonia, UTI, acute respiratory failure with hypoxia, HHS, acute metabolic encephalopathy, and pneumoperitoneum from jostled G-tube. Sepsis/RLL PNA/acute respiratory failure with hypoxemia/UTI/acute metabolic encephalopathy/Staphylococcus epidermidis bacteremia-patient with leukocytosis, fever, tachycardia, RLL PNA on CXR, abnormal UA, originally requiring 2L NC O2. Was quite lethargic with fever which is now resolved. BPs normal, lactate negative, Procalcitonin negative, ABG without CO2 retention. Treating for gram- negative and MRSA pneumonia coverage given that she resides in a nursing facility and was in hospital for 3 months prior to that. Has a history of Zosyn resistance in the past with a previous UTI. Encephalopathy secondary to sepsis but could also be from HHS which is now resolved. CTAP with cirrhosis but no biliary ductal dilatation or cholecystitis. With inadequate oral secretion management requiring frequent suctioning but now improved and weaned off supplemental O2. Urine cx with pansensitive Klebsiella variicola. Initial BCxs Staph epi likely contaminant, repeat blood cxs remain NGTD, Sputum cx mod normal [place]. MRSA nasal swab positive Overall significantly improved, back to baseline, sepsis resolved. -will de-escalate meropenem (given 3 days of tx) to ceftriaxone (although pt with unknown documented allergy to penicillins, pt tolerated meropenem w/o issue) -follow repeat blood cultures to ensure no growth but will d/c vanco at this time -Acetaminophen as needed for fever -continue PEG tube Robinul for excessive secretions- continue suctioning as needed -appreciate speech consult -recommend good oral care to prevent aspiration PNA Pneumoperitoneum-no etiology found on imaging but no evidence clinically of peritonitis on examination. Appreciate surgery consultation. Could be from manipulation of PEG tube which remains in place. Abdomen remains soft and nontender. KUB and G-tube study on 08/12 now normal and G tube functioning and in proper positioning. Ok to use PEG tube as per Surgery. Resumed TFs and PEG medications 08/12, tolerating well - Keep n.p.o. and resumed enteral feeds-use continuous feeds and titrate up- Maintenance Helper Utility Engineer recommendations appreciated -recommend continuous infusion of TFs over 18 hours upon return to [facility] rather than bolus feeds to avoid aspiration - Appreciate surgery management Elevated LFTs-review of outpatient labs from 06/2024 reveal chronically elevated total bilirubin/AST/ALT/alkaline phosphatase. Review of outpatient CT A/P in 06/2024 reports "normal" liver, has gallstones but no bile duct dilatation. CTAP here with evidence of cirrhosis but no biliary ductal dilatation. ?Could be side effect of medication. Colonoscopy in 06/2024 was normal after seeing a suspected colon mass on CTAP previously. LFTs here continue to be much improved, TBili stable at 2-3, AST/ALT now normal, and Alk phos down a lot to the 400s (from 800s). Hepatitis panel negative. Liver biopsy done in L2 system show some mild fibrosis suspected from vasogenic edema/cardiogenic cirrhosis - Follow LFTs-improving - continue to hold atorvastatin DM2/HHS-with blood glucose 600 on arrival, serum bicarbonate is actually elevated. ABG without acidosis. Legal guardian reports that she has been having elevated blood glucose in the 500s since admission to the alf and a change in her tube feeds. [facility] records show she has been on Lantus 45 units daily and is allergic to metformin. Treated w/ insulin drip and now on basal and bolus insulin. HgbA1c well-controlled at 7.2% - Pharmacy glycemic consult, continue on Lantus and NovoLog, adjust as needed and will need to make final recommendations on discharge keeping in mind she will have a different tube feed on return to [facility] (Jevity 1.5) Elevated troponin/myocardial demand ischemia/chronic HFrEF/HTN-troponin mildly elevated at 40 on arrival and then trended downward, EKG without acute ischemic changes. She has note of severe coronary artery calcifications on recent CTAP. Unclear if this is an ischemic or nonischemic CM. Echo here with EF 35-40%, positive WMA's with inferior, posterior, and inferoseptal elkins being akinetic and all other segments being hypokinetic, no valvular disease BPs here are normal. Reviewed Cardiology notes from [facility] 09/[facility]--> reports previously on Entresto but stopped due to hyperkalemia. Was referred to [facility] in [place] but never had consult due to recurring hospitalizations -convert metoprolol tartrate from home to carvedilol 12.5mg per PEG bid as this can be crushed -Entresto caused hyperkalemia -resume Lasix 40mg per PEG qAM (home dose bid) -consider adding Plavix for CAD but given h/o hemorrhagic spontaneous CVA, may hold off -continue holding home atorvastatin for elevated LFTs -f/u with Cardiology as outpt History of hemorrhagic CVA/CP/seizure disorder/levin syndrome/intellectual delay- encephalopathy now resolved, much improved. Has baseline right hemiparesis and a h/o hypertensive hemorrhagic CVA at age 37. Consult neurology- appreciate recommendations. CT head here with old stroke on left and age indeterminate on right. Review of old CT head and brain MRI from many years ago also shows old infarct deep frontal lobe-likely same strokes as before. MRI brain here old strokes but nothing new. - continue home clonazepam bid and lamictal - continue supportive care - holding statin due to elevated LFTs - continue Robinul Bipolar disorder with psychotic features-stable - continue Risperdal at bedtime and lamictal - will hold duloxetine while admitted as unable to be crushed/split; may resume on discharge if necessary Chronic respiratory failure with hypoxemia-likely secondary to heart failure and possibly sleep disordered breathing? And has a history of intubation for acute hypoxic and hypercarbic respiratory failure. Unsure what home O2 requirement is if any at all. Now weaned to room air - continue home budesonide, resuming lasix at 40 mg daily (down from BID) - continue with suctioning, bronchodilators GERD/PEG tube in place-with pneumoperitoneum, G-tube in place on CT and now improved. G tube study normal, no free air on KUB, resumed use of PEG - Consult dietitian for tube feed orders appreciated-recommend continuous infusion or 18 hr infusion of feeds rather than bolus feeds -continue Prevacid per PEG tube DVT prophylaxis-Lovenox SQ, SCDs Disposition--continued stay on med/surg, much improved, will likely be ready for discharge to [facility] SNF in next 1-2 days although sister has requested change in placement due to concerns for neglect. Pt has a legal guardian named Florencia Mcallister who makes all decisions for patient as guardianship legally taken away from sister. APS recommends avoiding contact with family but guardian says it is ok for us to give them medical updates and visitation, but they cannot make decisions. There is a court order for her to be at [facility] but CM involved and looking into if she can be transferred to somewhere else. Patient's sister, Caity Osborn, phone number [phone], however she is not legally allowed to make any decisions or consent for medical care. (2) Pneumonia: (3) Pneumoperitoneum: (4) Acute respiratory failure with hypoxia: Admission and Anticipated Discharge Date Admission Date: August 10, 2024 Supervising Physician Co-Signing Physician Notes I personally examined the patient and verified all tinoco points of history and exam, discussed case, and agree with decision making with Dr Salmeron Seen around 4 PM. Feeling good. Sitting up in bed. Bright and cheerful. Offers no complaintsnursing notes that she still has a fairly mucousy cough, but patient denies any dyspnea. She is happy and talkative. Vitals noted, in general she is awake and alert pleasant no distress. HEENT normocephalic atraumatic mucous membranes moist. Cardio is regular without rubs murmurs or gallops. Lungs are surprisingly clear to auscultation bilaterally maybe slightly diminished bibasilar but no rales rhonchi or wheezes with good effort no accessory muscle use and she is on room air. PEG tube in place. Skin without rashes pallor or icterus. Right lower lobe pneumonia with sepsis/acute respiratory failure with hypoxia metabolic encephalopathy and Staph epidermidis bacteremiaoverall appearing to be improving. Continue current care. Continue to follow closely. pneumoperitoneumsee prior notes, tolerating tube feeds well, surgery has signed off. Fortunately no evidence of peritonitis and no concerning findings. [facility], difficult social situation, case management looking to see if she could be transferred [place] now apparently a court order for her to be at [facility]. Improving overall. Subjective Pt seen at bedside this AM. She states she is good this AM. No pain anywhere. Review of Systems Review of Systems: As per HPI Physical Exam Physical Exam: Constitutional: well appearing, no acute distress HEENT: normocephalic, no conjunctival injection CV: regular rhythm, regular rate, no murmur Respiratory: Upper airway sounds heard throughout. Decreased breath sounds in RLL. No increased work of breathing GI: soft, nondistended, positive bowel sounds; G tube in place Neuro: alert, conversant Results & Data Results & Data Vital Signs (Past 12 Hours) Vital Signs Temp Pulse Pulse Resp BP Pulse Ox O2 Del Method 08/14/24 07:51 103 H 20 93 Room Air 08/14/24 07:44 36.5 C 103 H 18 146/91 H 93 Room Air 08/14/24 07:30 Room Air Resident Activity Tracking Resident Involvement: Resident Care Provided Care Provided: Adult Hospital Medicine (2) Pneumonia Laterality: right Lung location: lower lobe of lung Pneumonia type: due to unspecified organism Qualified Code(s): J18.9 - Pneumonia, unspecified organism
[2024-08-14 12:01] LABS: Albumin Globulin Ratio 0.9 (0.9-2); Albumin Level 3.1 gm/dl (3.4-5.0); BUN Creatinine Ratio 42.9 (10-20); Calcium 9.3 mg/dl (8.6-10.3); Creatinine Clr Calc Pharmacy 61.9 ml/min; Globulin 3.3 gm/dl (2.5-4.0); Potassium 4.4 mmol/L (3.5-5.1); Total Protein 6.4 gm/dl (6.0-8.3)
[2024-08-14] MEDS: INSULIN ASPART PER UNIT CHARGE SC SCH (12:16)
--- NOTE | 2024-08-14 13:12 | Pharmacy Report ---
Pharmacy Glycemic Short Note 2 - Date of Service August 14, 2024 - Glycemic Short BSG Results (Last 24 hours): 08/13/24 08/13/24 08/14/24 18:00 21:26 00:14 Glucose POC Glucose 267 H 237 H 289 H 08/14/24 08/14/24 08/14/24 06:18 11:16 11:24 Glucose 206 H POC Glucose 247 H 225 H OUTPATIENT ANTIDIABETIC REGIMEN: * Lantus 45 units SC daily * Humalog ACHS SSI HbA1c: 7.2% (08/10/24) ASSESSMENT: 08/14/24: * BSGs elevated since the initiation of tube feeds. Will transition to Regular insulin for longer duration of action to continue q6H checks rather than q4. Also tightened parameters for now * Caution with increase in Basal- risk of hypoglycemia if tube feeds stopped- will monitor regular insulin change for now. Continue with 15 or 20 units of basal for now 08/13/24; * Patient received a total of 18 units of insulin yesterday (15 units were basal and 3 units were bolus). BSGs were [id number]/dL. * Continuous tube feedings with Peptamen 1.5 were started last evening which explains the higher readings in the evening.--currently at 30ml/hr (33g CHO q 6 hours) * Fasting BSG was 171mg/dL this morning. HS Lantus scale was increased and CR was tightened. * IV fluids were discontinued 08/12/24 * Blood sugars well-controlled yesterday, but unfortunately patient did have low this morning (69 mg/dL) * D5-NSS + 20 KCl @70 mL/hr initiated while not using PEG tube, still unsure if this will be used today * Will decrease basal insulin today * Remains on vancomycin and meropenem 08/11/24: * DR is a 54 year old female with history of cerebral palsy, Coulter syndrome, intellectual delay, HFrEF, T2DM, presence of PEG tube with history of aspiration pneumonia requiring intubation, and recent prolonged hospitalization at [facility] * [facility] due to altered mental status and hyperglycemia * Broad spectrum IV antibiotics started in ED for treatment of sepsis with presumed source being right lower lobe pneumonia * Insulin gtt and gentle IV fluids initiated in ED for treatment of HHS * HHS and hyperglycemia resolved over the course of day yesterday and insulin gtt ultimately transitioned to SC basal/bolus regimen this AM * Patient is NPO, avoiding tube feeds as well at this time PLAN FOR INPATIENT GLYCEMIC CONTROL: * Hold outpatient oral diabetes medications * Basal insulin * Lantus 15-20 units SC HS (see EHR for details) * Bolus insulin * Regular per scale ACHS or Q6hrs while NPO * Goal Range: Low 110 mg/dL - High 140 mg/dL * Correction Factor: 25 mg/dL/unit * Nutritional / Prandial insulin per carb ratio of 1 unit per 7 grams CHO consumed
[2024-08-14] MEDS: cefTRIAXone SODIUM 2,000 MG/50 ML BAG IV SCH (17:44)
[2024-08-14] MEDS: INSULIN HUMAN REGULAR SC SCH (17:47)
--- NOTE | 2024-08-14 18:54 | Emergency Department Note ---
ED Visit Note Endotracheal Intubation Indication: code blue. A 7.0 size ETT tube was placed to 25 cm using standard technique withe glidescope. The cuff inflated without signs of malfunction. There were bilateral breath sounds. Patient was a difficult airway secondary to gastric contents in the airway and an anterior airway. ROSC was achieved after patient was intubated. Code was continued by hospitalist team Dr. Fair .
[2024-08-14] MEDS ORDERED: SODIUM CHLOR 7% 4 ML NEB NEB SCH (19:00)
[2024-08-14] MEDS ORDERED: PROPOFOL IV EMULSION 10 MG/ML 100 ML VIAL IV ONE (19:04)
--- NOTE | 2024-08-14 19:25 | XRay Report ---
EXAM: Portable AP chest radiograph TECHNIQUE: AP portable radiograph of the chest was obtained. INDICATION: Shortness of breath Comparison: Chest radiograph August 10, 2024. FINDINGS: LINES and TUBES: Endotracheal tube with tip 3.4 cm above the guerrero. CARDIOVASCULAR: Cardiac silhouette is stably mildly enlarged in size. LUNGS/PLEURA: Interval increase in the right mid to lower lung and left basilar opacities with apparent worsening of volume loss in the right hemithorax. Small pleural fluids may be present. No discernible pneumothorax. OSSEOUS/OTHER: No displaced acute osseous process identified. IMPRESSION: Well-positioned endotracheal tube. Interval increase in the right mid to lower lung and left basilar opacities with apparent worsening of the volume loss in the right hemithorax. This may represent worsening pneumonia and atelectasis, possibly from aspiration. Electronically signed by Mark Lama 08-14-2024 7:25 PM
--- NOTE | 2024-08-14 19:28 | Critical Care Consultation ---
Date of Consultation August 14, 2024 Assessment & Plan (1) Aspiration into airway: (2) Required emergent intubation: (3) Shock: (4) PEA (Pulseless electrical activity): (5) Cardiac arrest: Plan Responded to code blue call: Primary Medical Attending was already in room and attending to the code responsibilities- patient was noted to be in PEA, got brief update. Patient was noted to be dusky to face and lips with peripheral mottling and abdominal mottling. Assistance was turned to assisting in BVM and airway management. The airway was suctioned for yellow thin bubbly secretions, 2 person BVM was performed with minimal rise and fall of chest that improved following another suction and repositioning of head and neck. Once equipment was ready, initial airway attempt was performed by myself using MAC 3 blade and 7.5 ETT. Grade III view was obtained noting anterior airway and aspiration of gastric secretions occurred as tube was being advanced toward chords, obscuring full visualization. Tube was advanced, stylet was removed, balloon inflated. She received 2 breaths without caliometric change but with condensation in ETT and on 3rd breath noted gastric contents backing up into ETT. Balloon was deflated and removed, the Airway was suctioned out again and airway was handed over to ER Physician Dr. Hay, see his separate procedure note. After turning airway over to ER Attending code algorithm discussed with primary attending. We provided another 2 amp of BICARB and 1 amp of Epi. Airway was obtained and secured after 2 attempts by ER physician ( secretions and anterior airway), following this; patient continued to have large amounts of bilious secretions in the hypopharynx that were cleared, oxygenation improvement and with previous epi and bicarb, patient's perfusion status improved as well as weak pulse that was confirmed by Doppler and then became central and peripherally palpable. Once airway was secured and breath sounds auscultated, + ETCO2, and with adequate SPO2, HR and pulse were stable she was felt to be safe for transport to the ICU. Patient arrived to the ICU upon placing patient over to the bed and connecting to ventilator, vasopressors were being started in form of Levophed and Epinephrine infusion was being obtained from Pharmacy. Patient started to become dusky again and bradycardic. Once again, pulse was lost and CPR was initiated. Patient received CPR, 2cc epinephrine push dose, and 1 amp of NAHCO3. Following round of CPR the pulse was checked and pulse returned- bedside POCUS obtained by myself and was with adequate contractions that appeared close to previous 35-40% EF ( No obvious dramatic decrease noted), there was no pericardial effusion. CXR was obtained noting good position of ETT and no pneumothorax, but with increase haziness and in the bases RT > LT. PEG tube was unclamped and connected to Low suction, Patient was then prepared for bronchoscopy to clear out airways in setting of continued hypoxia and gastric secretions in airway and in ETT. See separate procedure note from bronchoscopy. Following clearing of airways, her PIPS decreased to the 30-31 patient remained refractory hypotensive with rapidly increasing vasoactive medications. Again she was given dose of BICARB and Push dose epi and infusions were increased. She continued to be kris and become more mottled and PEA arrest ensued. At this time with her history of CP refractory hypoxia and hypotension, as well as this being her 3rd cardiac arrest within an hour and with each arrest decreasing chances of meaningful recovery and worsening organ dysfunction, discussion with Hospitalist Attending was had and decision was made not to continue with CPR or prolong resuscitation further with current mottling and continued instability. Time of was 1919- cardiac arrest likely secondary to hypoxic failure in setting of aspiration Patient Guardian was contacted by primary Attending as well as Family was contacted by Primary attending. Sister did arrive to hospital with appropriate grieving noted. Condolences were provided by myself and hospitalist. Family was grateful for our attempts at trying to revive her and sister was very emotionally upset about patient's historical illnesses. Again emotional support was provided. I have personally spent 50 minutes of critical care time in the direct management of this patient. This is a life/limb threatening event. This includes time spent evaluating patient, direct bedside care, chart review, placing orders, interpretation of diagnostic studies, discussion with consultants, patient, and family members, as well as other required patient management activities. This time is exclusive of all separately billable procedures, and teaching time and separate from and in addition to any other critical care service time Maximus CAMACHO ([facility]) History of Present Illness Reason for Consultation: cardiac arrest Requesting Physician: Fadi Fair DO Attending Physician: Fadi Fair DO History of Present Illness 54 YOF with CP- admitted on 08/10/24 for sepsis with organ dysfunction, encephalopathy, PNA, GERD with aspiration, hypoxemic respiratory failure, pneumoperitoneum. EUGENIE Rendon was called at 1824. On my arrival CPR was being performed, BVM was being performed, and code was being managed by Attending Hospitalist. Patient was notably dusky as well as mottled, presenting rhythm consistent with likely PEA arrest. See Plan section below for full details. Allergies Allergy/AdvReac Type Severity Reaction Status Date / Time metformin Allergy Unknown Unknown - Unverified 08/10/24 14:57 On med list w/ [facility] Penicillins Allergy Unknown Unknown Verified 08/10/24 14:57 sacubitril [From Entresto] AdvReac Unknown Hyperkalemi Verified 08/13/24 12:36 a valsartan [From Entresto] AdvReac Unknown Hyperkalemi Verified 08/13/24 12:36 a Home Medications Medication Instructions Recorded Confirmed Type B-complex with vitamin C 1 tab feeding tube DAILY 08/10/24 08/10/24 History Lactobacillus acidophilus 10 mg feeding tube DAILY 08/10/24 08/10/24 History acetaminophen 325 mg tablet 650 mg feeding tube Q6H PRN 08/10/24 08/10/24 History Elevated Temp>101 acetaminophen 325 mg tablet 650 mg feeding tube Q6H PRN Mild 08/10/24 08/10/24 History Pain (Scale Score 1-3) atorvastatin 10 mg tablet 10 mg feeding tube QAM 08/10/24 08/10/24 History baclofen 20 mg tablet 20 mg feeding tube Q12H PRN Muscle 08/10/24 08/10/24 History Spasms bisacodyl 10 mg rectal suppository 10 mg HI DAILY PRN Consitpation 08/10/24 08/10/24 History budesonide 0.5 mg/2 mL suspension 0.5 mg inhalation QAM 08/10/24 08/10/24 History for nebulization calcium 500 mg (as 1 tab feeding tube DAILY 08/10/24 08/10/24 History carbonate)-vitamin D3 5 mcg (200 unit) tablet (Calcium 500 + D) clonazepam 0.5 mg tablet 0.5 mg feeding tube Q12H PRN 08/10/24 08/10/24 History Anxiety diphenhydramine HCl 25 mg tablet 25 mg feeding tube Q6H PRN Itching 08/10/24 08/10/24 History duloxetine 20 mg capsule,delayed 20 mg PO DAILY 08/10/24 08/10/24 History release enoxaparin 40 mg/0.4 mL 40 mg subcut QAM 08/10/24 08/10/24 History subcutaneous syringe folic acid 400 mcg tablet 400 mcg feeding tube QAM 08/10/24 08/10/24 History furosemide 40 mg tablet 40 mg feeding tube BID 08/10/24 08/10/24 History glucagon HCl 1 mg solution for 1 mg IM DIRECTED PRN 08/10/24 08/10/24 History injection (Glucagon (HCl) Hypoglycemia Emergency Kit) glycopyrrolate 1 mg tablet 1 mg feeding tube TID 08/10/24 08/10/24 History insulin glargine 100 unit/mL (3 45 unit subcut DAILY 08/10/24 08/10/24 History mL) subcutaneous pen (Lantus Solostar U-100 Insulin) insulin lispro 100 unit/mL 0 - 12 sliding scale dose subcut 08/10/24 08/10/24 History subcutaneous pen (Humalog KwikPen ACHS (U-100) Insulin) lamotrigine 100 mg tablet 100 mg feeding tube QPM 08/10/24 08/10/24 History lamotrigine 25 mg tablet 50 mg feeding tube QAM 08/10/24 08/10/24 History lansoprazole 15 mg delayed 30 mg feeding tube QAM 08/10/24 08/10/24 History release,disintegrating tablet loratadine 10 mg tablet 10 mg feeding tube DAILY 08/10/24 08/10/24 History magnesium hydroxide 400 mg/5 mL 2,400 mg feeding tube DAILY PRN 08/10/24 08/10/24 History oral suspension (Milk of Magnesia) Constipation metoprolol tartrate 25 mg tablet 25 mg feeding tube QID 08/10/24 08/10/24 History nystatin 100,000 unit/mL oral 500,000 unit PO Q4H PRN 08/10/24 08/10/24 History suspension Thrush/Disturbances of Salivary Secretion ondansetron HCl 4 mg/5 mL oral 4 mg feeding tube Q8H PRN Nausea 08/10/24 08/10/24 History solution oxycodone 5 mg tablet 2.5 mg feeding tube Q6H PRN Pain 08/10/24 08/10/24 History (Scale Score 4-10) polyethylene glycol 3350 17 gram 17 g feeding tube DAILY PRN 08/10/24 08/10/24 History oral powder packet Constipation risperidone 1 mg/mL oral solution 3 mg feeding tube HS 08/10/24 08/10/24 History sodium phosphates 19 gram-7 118 ml HI DAILY PRN Constipation 08/10/24 08/10/24 History gram/118 mL enema (Fleet Enema) Patient History Medical History Neuropathy G6PD deficiency GERD (gastroesophageal reflux disease) Chronic respiratory failure Intellectual developmental disorder, moderate Coulter's syndrome Elevated LFTs Coronary artery calcification Surgical History Status post insertion of percutaneous endoscopic gastrostomy (PEG) tube Family History Other Family history non-contributory Social History Smoking Status: Never smoker Communication Ability: Unable Current Living Situation: Legal Guardian and [employer] Current Living Situation Comment: pt resides at [facility] and has a legal guardian Feels Safe at Home: Yes Assistive Devices: Mechanical Lift Results & Data Results & Data Vital Signs (Past 12 Hours) Vital Signs Temp Pulse Pulse Resp BP BP Pulse Ox 08/14/24 16:08 36.7 C 93 H 14 118/77 95 08/14/24 07:51 103 H 20 93 08/14/24 07:44 36.5 C 103 H 18 146/91 H 93 08/14/24 07:30 O2 Del Method 08/14/24 16:08 Room Air 08/14/24 07:51 Room Air 08/14/24 07:44 Room Air 08/14/24 07:30 Room Air
--- NOTE | 2024-08-14 19:32 | Billing Data ---
Date of Service August 14, 2024 Coding Level of Care Code 43565 SUB INP/OBS CARE MIN
--- NOTE | 2024-08-14 19:34 | Communication Note ---
Date of Service: August 14, 2024 CODE STEPHEN called. Arrived to roompatient had been doing well, and whenever nursing went to check on her she was completely unresponsive and pulseless. CPR was started prior to my arrival. ACLS followed. Initial rhythm was PEA. ICU and ER assistance greatly appreciatedairway obtained, and on intubation, massive amounts of what appeared to be gastric contents came up. Airway was difficult. CPR continued throughout. Once airway was obtained, approximately 4 minutes later patient had ROSC. Moved to ICU. Updated both her sister Caity and her POA Florencia. Caity was extremely distraught, as well as expressing anger at [facility]. Florencia expressed a good understanding of the situation, sorrow for what the patient was going through, and noted that with the patient's situation, should true end-of-life decisions need to be made, it would be quite reasonable to allow her sister to guide those decisions. approx 45mins critical care
--- NOTE | 2024-08-14 19:34 | Billing Data ---
Date of Service August 14, 2024 Coding Level of Care Code 67595 CRITICAL CARE
--- NOTE | 2024-08-14 19:35 | Procedure Note ---
Procedure Note Date of Service August 14, 2024 Procedure: Flexible Bronchoscopy Proceduralist: Maximus CAMACHO ([facility] Anesthetic/Sedation: Fentanyl infusion Indication: hypoxic respiratory failure secondary to aspiration and cardiac arrest Emergent Consent implied as patient was full code and had just been resuscitated from a cardiac arrest likely secondary to aspiration and respiratory arrest Procedure: Bronchoscope was advanced down ETT, guerrero visualized. The guerrero was viaulized and noted yellow green brown secretions at the guerrero and right bronhcus. This was suctioned and the bronchoscope was advanced down the right mainstem and RML and RLL with suction of small amount of yellow secretions. Following this the scope was removed and patient was hyperoxygneated again. The bronchoscope was then advanced down the Left mainstem bronchous and RAMON and LML were evaluated. There was no large secretions or irritation noted. Following this the scope was withdrewn to the guerrero and 30 cc of saline was instilled for BAL and returned about 20cc of brown yellow tinged saline. This will be sent for culture and gram stain. Specimens: BAL - [] mL x [], [] Lobe Complications: NONE immediate Impression: aspiration likely Plan: Sent BAL for Culture & Sensitivities, Gram Stain, AFB Images: Print out of images added to patients physical chart. [facility] [place] Procedure Codes (Charges) Pulmonary/Thoracic Procedure 1: Pulmonary and Thoracic: 64187 Dx bronchoscopy/BAL Coding CPT Codes Pulmonary/Thoracic - Pulmonary and Thoracic: 01688 Dx bronchoscopy/BAL ([id number]) Additional Codes Date of Service ([email or web address])
--- NOTE | 2024-08-14 19:38 | Communication Note ---
Date of Service: August 14, 2024 Patient 08/15/2023 at 19:20 WENDYRiddhi Don contacted and informed . She stated that now that the patient is is our point of contact shifts to the next of kin. Reached out to patient's sister Caity Osborn and left message x 2 with MICU call back number. Awaiting return call. Sister and mother at bedside.
--- NOTE | 2024-08-17 11:24 | Electrocardiogram Report ---
Test Reason : Blood Pressure : */* mmHG Vent. Rate : 38 BPM Atrial Rate : 76 BPM P-R Int : 316 ms QRS Dur : 102 ms QT Int : 546 ms P-R-T Axes : 6 -56 -64 degrees QTcB Int : 434 ms Poor data quality, interpretation may be adversely affected Sinus rhythm with 2nd degree A-V block with 2:1 A-V conduction Left axis deviation Right bundle branch block Left anterior fascicular block Abnormal ECG Confirmed by Willis Lantigua ([id number]) on 08/17/2024 11:23:46 AM Referred By: [facility] Confirmed By: Willis Lantigua
== END 2024-08-14 22:48 | disposition expired | DRG 871 ==
LOC: ED 07:52 → SUATTDRO 10:58 → 2S 10:58 → 3N 08-13 18:58 → 1E 08-14 18:56